=== PATIENT | female | born 1960 | race Caucasian/White ===

== ENCOUNTER 2022-02-18 12:23 | Emergency (ER) | payer MEDICARE, MEDICAID, SELFPAY ==
[2022-02-18 12:24] VITALS: BP 162/86; PULSE 55; RESP 16; TEMP 37.1; O2SAT 98; BMI 31.2
--- NOTE | 2022-02-18 12:39 | ED.VIS.LOWEX ---
HPI History of Present Illness Chief Complaint: Lower Extremity Injury Narrative Narrative: Patient presents with crush injury to her right great toe. She states that she recently moved and had a concrete slab that someone had given her to put outside propped up against the wall. She was inside her home when she turned around, and the concrete slab fell and crushed her right great toe. She was not wearing shoes or socks. She believes her tetanus immunization was up-to-date in 2019, 2 years ago. Of note, she states she is always concerned about infection because she is immunosuppressed for medication from her kidney transplant. She is on blood thinners such as Plavix and takes baby aspirin. She presents because of the injury to her right great toe. She sustained injury to the nailbed. [facility] Medical History Cancer of tonsil Carotid arterial disease COPD (chronic obstructive pulmonary disease) GERD (gastroesophageal reflux disease) High cholesterol HTN (hypertension) Hypothyroid Kidney failure Renal vein stenosis of kidney transplant Home Medications cephalexin 500 mg capsule 500 mg PO BID #14 caps 02/18/22 [Rx Last Taken Unknown] Allergy/AdvReac Type Severity Reaction Status Date / Time cyclobenzaprine Allergy Rash Verified 02/18/22 12:27 [From Flexeril] Opioids - Morphine Analogues Allergy Rash Verified 02/18/22 12:27 Surgical History Kidney transplant recipient Social History Smoking Status: Never smoker ROS ROS ED ROS Narrative Constitutional: No fever, no chills. HEENT: No sore throat. No neck pain. No loss of vision. No rhinorrhea. Cardiovascular: No chest pain. No palpitations. No pedal edema. Respiratory: No cough, no shortness of breath. Abdominal: No abdominal pain. No nausea. No vomiting. Genitourinary: No dysuria. No hematuria. Musculoskeletal: No myalgias. Crush injury to right great toe. Worse with weightbearing and walking. Neurologic: No headaches. No dizziness. No lightheadedness. Skin: No rash. No change in color. Psychiatric: No depression. No anxiety. EXAM Physical Exam Narrative Exam Narrative: Afebrile. Vital signs noted. HEENT: Normocephalic. Atraumatic. PERRL, EOMI. Neck soft and supple. No point tenderness or step off. Cardiovascular: Regular rate and rhythm. No murmurs, rubs, or gallops appreciated. Respiratory: No tachypnea. Lungs clear to auscultation bilaterally. Gastrointestinal: Abdomen soft, nontender, with normoactive bowel sounds. No rebound or guarding. Neurological: Awake. Alert. Nonfocal, nonlateralizing. Skin: No rash. Normal color. No pallor. Musculoskeletal: No pedal edema. Decreased range of motion right great toe secondary to pain. There is a proximal subungual hematoma with partial nail avulsion with minimal surrounding drops of blood. Const Vital Signs: 02/18/22 12:24 Temperature 98.7 F Temperature Source Oral Pulse Rate 55 L Respiratory Rate 16 Blood Pressure 162/86 H Blood Pressure Mean 111 Pulse Ox 98 Oxygen Delivery Method Room Air MDM MDM MDM Narrative Medical decision making narrative: X-rays were obtained of the right great toe. Patient requested 500 mg of Tylenol for analgesia. Patient stated that she wanted complete nail removal. However, she only has very partial nail avulsion approximately. I interpreted her x-ray. There is a nondisplaced fracture of the distal phalanx of the first digit. I will put her on antibiotics. I was able to discuss this with Dr. Rodriguez with podiatry who agrees that the nail should remain intact. It will be dressed and she will be given a postop shoe to be weightbearing as tolerated. She will elevate her right foot when possible and take [id number] analgesics and follow-up with podiatry. I feel she can be discharged safely home with follow-up. Return instructions were reviewed. Disposition is discharged home in stable condition. Radiography Diagnostic Testing: Clinical Impression(s) from Imaging Studies Toe X-Ray 02/18/22 12:44 IMPRESSION: Fracture of the first distal phalanx. Electronically Signed: Robel Lara MD at 13:24 EDT , Discharge Plan Triage Chief Complaint: Lower Extremity Injury ED Provider: Gibran Graff Dx/Rx/DC Orders Clinical Impression: Crush injury of toe, Subungual hematoma of foot, Nail avulsion of toe, Fracture, toe Instructions: Fx Finger Toe, ED Crush Injury, Foot/Toe, ED Detached Fingernail or Toenail, ED Subungual Hematoma Prescriptions: New cephalexin 500 mg capsule 500 mg PO BID Qty: 14 0RF Primary Care Provider: Edgar Weinstein,Out of Referrals: Sharan Rodriguez DPM [Med Staff - Active Staff] - 3-5 Days if not improving [facility] Doctor,Out of [Primary Care Provider] - Disposition Disposition: Home, Self Care Discharge Date/Time: 02/18/22 14:52
--- NOTE | 2022-02-18 12:44 | RAD_ITS ---
STUDY: X-RAY RIGHT FOOT, GREAT TOE REASON FOR EXAM: Injury of the right great toe. TECHNIQUE: 3 view(s) of the toe were obtained. COMPARISON: None. FINDINGS: Normal visualized metatarsus. Normal metatarsophalangeal (M.T.P) joint. Normal interphalangeal joint. There is a nondisplaced fracture of the distal phalanx. There is soft tissue swelling. RAD/Toe(s) Min 2 Views IMPRESSION: Fracture of the first distal phalanx. Electronically Signed: Robel Lara MD at 13:24 EDT ,
[2022-02-18] MEDS: Acetaminophen 500 MG Tablet PO (12:59)
--- NOTE | 2022-02-18 14:43 | ED.RN ---
This RN went to change pt. dressing and give her a post-op shoe.Attempted to remove soiled dressing and pt. swatted my hand away stating my toe is broken is hurts. I attempted again to remove soiled dressing and put on a clean dressing and again pt. swatted this RN's hand away and continued to tell me the best way to clean her toe. This RN informed pt. that she could change her own dressing if she would prefer. pt. stated yes i will just do it myself seeing as how this hospital is no help at all, you guys cannot even set up transport for me to get back back home. Informed pt. she could call a taxi or family and pt. states my daughters live over an hour away there is no way I am bothering them with me needing a ride. I gave pt. dressing materials, post op shoe and DC papers and pt. slammed door closed.
== END 2022-02-18 14:52 | disposition home or self-care (01) ==
PROVIDERS: Emergency Provider Emergency Medicine; Visit Provider Emergency Medicine
DX: S97.111A Crushing injury of right great toe, initial encounter (principal); D84.9 Immunodeficiency, unspecified; J44.9 Chronic obstructive pulmonary disease, unspecified; S90.111A Contusion of right great toe without damage to nail, initial encounter; Z85.818 Personal history of malignant neoplasm of other sites of lip, oral cavity, and pharynx; W23.0XXA Caught, crushed, jammed, or pinched between moving objects, initial encounter; Z94.0 Kidney transplant status; Z79.02 Long term (current) use of antithrombotics/antiplatelets; Z79.82 Long term (current) use of aspirin; S90.211A Contusion of right great toe with damage to nail, initial encounter; S92.424A Nondisplaced fracture of distal phalanx of right great toe, initial encounter for closed fracture
CPT/HCPCS: 73660; 99284

== ENCOUNTER 2022-06-27 13:32 | Observation (INO) | payer MEDICARE, MEDICAID, SELFPAY ==
[2022-06-27] VITALS (10 sets, daily range): BP systolic 151–165; BP diastolic 61–90; PULSE 58–75; RESP 12–18; TEMP 34.9–36.6; O2SAT 94–98; BMI 30.9; BMI 30.5
--- NOTE | 2022-06-27 15:42 | ED.VIS.CHEST ---
HPI History of Present Illness Chief Complaint: Nausea/Vomiting Narrative Narrative: Patient presents for an episode of dizziness, nausea, vomiting, sweating, right sided nonpleuritic chest pain, and shortness of breath that started while she was washing her dishes just prior to calling an ambulance, she states it lasted about 10 minutes with regards of the chest discomfort. She feels almost completely better now with no symptoms except for nausea. This was a difficult history to obtain because the patient talked a long time about her recent medication changes prior to understanding that she had a single episode of this just today although her new medication started 3 days ago. She states she had a prior carotid endarterectomy on the left, she needs 1 on the right and her doctor was switching blood pressure medications around because her blood pressures were uncontrolled. She was on metoprolol, she was taken it for 9 years, it was discontinued 3 days ago and she was started on Zetia. She states in 2 weeks she is supposed to start another blood pressure medication, she does not know which one it is. She then talks about the fact that sometimes when she takes her pills out of her pill counter, some of them get hung up in the areas, sometimes she throws her pills back into her mouth and then finds one in her hair and then takes it as well, so she is not on a percent confident that she has been taking her medications as prescribed, and tells me that she is giving me these disclaimers. She had no problems taking the medications over the last couple days until this episode that she had today which she attributes to possibly being due to the blood pressure medications. She denies feeling vertigo. She said that it felt like lightheadedness but she did not become to the point of syncope or near syncope. The discomfort in the right upper chest was just a pain. She cannot describe it further. She spends the rest of the encounter asking me why EMS would bring her to this hospital since she is a transplant patient and this is not a transplant hospital. I tried to answer her question professionally, but she became frustrated and wanted to end the conversation. [facility] Medical History Cancer of tonsil Carotid arterial disease COPD (chronic obstructive pulmonary disease) GERD (gastroesophageal reflux disease) High cholesterol HTN (hypertension) Hypothyroid Kidney failure Renal vein stenosis of kidney transplant Home Medications cephalexin 500 mg capsule 500 mg PO BID #14 caps 02/18/22 [Rx Last Taken Unknown] acetaminophen 650 mg tablet,extended release 1,300 mg PO Q8H 06/27/22 [History Last Taken Unknown] albuterol sulfate 90 mcg/actuation aerosol inhaler (Proventil HFA) 2 puff inhalation Q4H PRN PRN Cough 06/27/22 [History Last Taken Unknown] amlodipine 10 mg tablet 10 mg PO DAILY 06/27/22 [History Last Taken Unknown] atorvastatin 80 mg tablet (Lipitor) 80 mg PO DAILY 06/27/22 [History Last Taken Unknown] carvedilol 12.5 mg tablet 12.5 mg PO BID 06/27/22 [History Last Taken Unknown] ciclopirox 0.77 % topical gel topical 06/27/22 [History Last Taken Unknown] clopidogrel 75 mg tablet (Plavix) 75 mg PO DAILY 06/27/22 [History Last Taken Unknown] cyclosporine 25 mg capsule 75 mg PO QHS 06/27/22 [History Last Taken Unknown] estradiol 0.01% (0.1 mg/gram) vaginal cream (Estrace) 1 g vaginal QWEEK 06/27/22 [History Last Taken Unknown] ezetimibe 10 mg tablet (Zetia) 10 mg PO DAILY 06/27/22 [History Last Taken Unknown] famotidine 20 mg tablet (Pepcid) 20 mg PO DAILY 06/27/22 [History Last Taken Unknown] fenofibrate nanocrystallized 48 mg tablet (Tricor) 48 mg PO DAILY 06/27/22 [History Last Taken Unknown] fluticasone propionate 50 mcg/actuation nasal spray,suspension 2 spray intranasal DAILY 06/27/22 [History Last Taken Unknown] hydrochlorothiazide 25 mg tablet 25 mg PO BID 06/27/22 [History Last Taken Unknown] hydroxyzine pamoate 25 mg capsule (Vistaril) 25 mg PO BID PRN Anxiety 06/27/22 [History Last Taken Unknown] lamotrigine 200 mg tablet,extended release 24 hr (Lamictal XR) 200 mg PO DAILY 06/27/22 [History Last Taken Unknown] levothyroxine 88 mcg tablet 88 mcg PO DAILY 06/27/22 [History Last Taken Unknown] montelukast 10 mg tablet (Singulair) 10 mg PO QHS 06/27/22 [History Last Taken Unknown] mycophenolate mofetil 250 mg capsule (CellCept) 500 mg PO BID 06/27/22 [History Last Taken Unknown] omeprazole 40 mg capsule,delayed release 40 mg PO DAILY 06/27/22 [History Last Taken Unknown] prednisone 5 mg tablet 5 mg PO DAILY 06/27/22 [History Last Taken Unknown] tiotropium 2.5 mcg-olodaterol 2.5 mcg/actuation mist for inhalation 2 puff inhalation DAILY 06/27/22 [History Last Taken Unknown] Allergy/AdvReac Type Severity Reaction Status Date / Time cyclobenzaprine Allergy Rash Verified 02/18/22 12:27 [From Flexeril] Opioids - Morphine Analogues Allergy Rash Verified 02/18/22 12:27 Surgical History Kidney transplant recipient Social History Smoking Status: Never smoker ROS ROS ED Constitutional Constitutional ED: Reports sweats; Denies chills or fever(s) Eyes Eyes: Denies change in vision or diplopia ENT ENT ED: Denies rhinorrhea or sore throat Cardiovascular Cardiovascular: Reports chest pain and lightheadedness; Denies palpitations Respiratory/Chest Respiratory/Chest: Reports dyspnea; Denies cough Gastrointestinal Gastrointestinal: Reports nausea; Denies abdominal pain, diarrhea or vomiting Genitourinary Genitourinary ED: Denies dysuria or hematuria Musculoskeletal Musculoskeletal: Denies back pain or neck pain Integumentary Denies abscess or rash Neurologic Neurologic: Denies headache(s), paresthesias or weakness Psychiatric Psychiatric: Reports anxiety; Denies suicidal ideation or suicidal thoughts EXAM Physical Exam Const Vital Signs: 06/27/22 13:33 Temperature 94.8 F L Temperature Source Temporal Pulse Rate 58 L Respiratory Rate 16 Blood Pressure 158/62 H Blood Pressure Mean 94 Pulse Ox 98 Oxygen Delivery Method Room Air Positive well nourished and well developed General Appearance ED: well developed and NAD HEENT Reports moist mucous membranes HEENT Narrative: Patient turning her head/neck without any apparent difficulty or symptomatology. normocephalic and atraumatic Eyes PERRL and EOMs intact bilaterally Eyes Narrative: No horizontal, vertical, rotatory nystagmus or other pathologic nystagmus. Neck full ROM, no lymphadenopathy and supple Chest Wall inspection of chest normal and palpation of chest normal Resp normal respiratory effort and clear to auscultation bilaterally Cardio regular rate, regular rhythm and no murmurs GI non-tender and non-distended GI Narrative: Right lower quadrant transplanted kidney nontender Auscultation: normoactive bowel sounds Palpation: soft Back/Spine no CVA tenderness General Back: other FROM Extremity normal to inspection General Extremety ED: Negative for edema, pulses abnormal or tenderness General Extremity: Negative for edema or pulses abnormal Neuro oriented x3, CN's II-XII intact bilaterally and no sensory deficits noted Sensorium / Orientation: awake and alert Motor Exam: strength 5/5 throughout Psych Psych Narrative: Irritated, frustrated, anxious, sometimes tearful, redirectable at times. Skin no rashes or lesions noted and no wounds Heart Score History: Moderately Suspicious ECG: Significant ST-Depression Age: >45 - <65 years Risk Factors: 1 or 2 Risk Factors Troponin: </= Normal Limit Score: 5 MDM MDM MDM Narrative Medical decision making narrative: Patient did not have recurrent chest discomfort, her EKG is very concerning. I do not have an old one. The patient is a F patient I had her pull up her epic chart on her phone, I scrolled through all of her test results for several years, she has a couple of EKG rhythm strips that show sinus rhythm, some of them showed incomplete right bundle branch block, but no other abnormalities. I could find no EKGs to compare this with and we do not have any in our system here. I discussed with cardiology, Dr. Gayle. He agrees with admission and recommends a heparin drip and they will cycle enzymes, order an echocardiogram for the morning, and evaluate further. I did see that the patient had an old echocardiogram from last year at [facility] that was unremarkable showing normal systolic function. Patient states to me that she is very anxious about all of this. I advised her that we are trying to either rule in or rule out cardiac issues which is the reason for recommending admission, and that we have not done either 1 yet. She understands, and understands that there is risk here to her. I offered the option of transfer to [facility] if she desires, but at this time she is okay staying here. Lab Data Attestation: I reviewed the patient's lab results. Labs: Laboratory Results - last 24 hr 06/27/22 06/27/22 15:40 15:40 WBC 11.7 H RBC 5.19 Hgb 13.0 Hct 40.0 MCV 77.1 L MCH 25.0 L MCHC 32.5 RDW Std Deviation 47.4 H RDW Coeff of Pete 17.2 H Plt Count 328 MPV 8.7 Immature Gran % (Auto) 0.300 Neut % (Auto) 86.5 H Lymph % (Auto) 8.7 L [place] % (Auto) 3.8 Eos % (Auto) 0.3 Baso % (Auto) 0.4 Absolute Neuts (auto) 10.1 H Absolute Lymphs (auto) 1.02 Nucleated RBC % 0 Sodium 136 Potassium 3.3 L Chloride 100 Carbon Dioxide 30.0 Anion Gap 6 BUN 21 H Creatinine 1.05 H Estim Creat Clear Calc 50.63 Est GFR (MDRD) Af Amer 69 Est GFR (MDRD) Non-Af 57 L BUN/Creatinine Ratio 20.0 Glucose 117 H Calcium 10.0 Troponin I High Sens 11 Radiography Chest X-Ray - ED: 1 View, Read by ED Physician and No Acute Disease Rhythm Strip Rhythm Strip: Sinus Rhythm Rate: 65 Ectopy: None EKG Initial EKG: Attestation: I personally reviewed and interpreted this EKG as follows: Interpretation: Sinus Rhythm, S-T Depression (w/ associated biphasic T-waves V3-6) and Non-Specific ST Changes (I, aVL) Prior: No Prior Discharge Plan Triage Chief Complaint: Nausea/Vomiting ED Provider: Ant Gavin Dx/Rx/DC Orders Clinical Impression: Chest pain, Acute electrocardiogram changes, Peripheral artery disease Prescriptions: No Action cephalexin 500 mg capsule 500 mg PO BID Qty: 14 0RF carvedilol 12.5 mg Tablet 12.5 mg PO BID Rx Instructions: must administer with a meal/food prednisone 5 mg Tablet 5 mg PO DAILY clopidogrel [Plavix] 75 mg Tablet 75 mg PO DAILY acetaminophen 650 mg Tablet Extended Release 1,300 mg PO Q8H famotidine [Pepcid] 20 mg Tablet 20 mg PO DAILY amlodipine 10 mg Tablet 10 mg PO DAILY ezetimibe [Zetia] 10 mg Tablet 10 mg PO DAILY lamotrigine [Lamictal XR] 200 mg Tablet Extended Release 24hr 200 mg PO DAILY tiotropium-olodaterol 2.5-2.5 mcg/actuation Mist 2 puff INHALATION DAILY atorvastatin [Lipitor] 80 mg Tablet 80 mg PO DAILY mycophenolate mofetil [CellCept] 250 mg Capsule 500 mg PO BID omeprazole [Prilosec] 40 mg Capsule,Delayed Release(Dr/Ec) 40 mg PO DAILY cyclosporine 25 mg Capsule 75 mg PO QHS levothyroxine 88 mcg Tablet 88 mcg PO DAILY montelukast [Singulair] 10 mg Tablet 10 mg PO QHS hydrochlorothiazide 25 mg Tablet 25 mg PO BID estradiol [Estrace] 0.01 % (0.1 mg/gram) Cream 1 g VAGINAL QWEEK albuterol sulfate [Proventil HFA] 90 mcg/actuation Hfa Aerosol Inhaler 2 puff INHALATION Q4H PRN PRN (Reason: Cough) fluticasone propionate [Flonase] 50 mcg/actuation [place],Suspension 2 spray INTRANASAL DAILY Rx Instructions: administer into each nostril ciclopirox [Loprox] 0.77 % Gel TOPICAL hydroxyzine pamoate [Vistaril] 25 mg Capsule 25 mg PO BID PRN (Reason: Anxiety) fenofibrate nanocrystallized [Tricor] 48 mg Tablet 48 mg PO DAILY Primary Care Provider: Rachid Tsang Referrals: Rachid Tsang MD [Primary Care Provider] - Disposition Disposition: Acute Care [facility]
[2022-06-27 16:05] LABS: Anion Gap 6 (5-15); BUN 21 mg/dL (7-18); Chloride 100 mmol/L (98-107); Creatinine, Serum 1.05 mg/dL (0.55-1.02); EST Glomerular Filtration Rate 57 mL/min (>60); Est Glom Filt Rate - Afr Amer 69 mL/min (>60); Estimated Creatinine Clearance 50.63 ml/min; Glucose 117 mg/dL (74-106); Potassium 3.3 mmol/L (3.5-5.1); Sodium Level 136 mmol/L (136-145); Troponin-I HS (w/2H Reflex) 11 pg/mL (3.0-54.0)
--- NOTE | 2022-06-27 16:05 | RAD_ITS ---
EXAM: XR CHEST, 1 VIEW CLINICAL INDICATION: chest pain TECHNIQUE: Frontal view of the chest. This report was created using [employer] report generation technology. COMPARISON: None. FINDINGS: LUNGS AND PLEURAL SPACES: Normal. No consolidation or edema. No pneumothorax. No effusion. HEART: Normal heart size. MEDIASTINUM: No mediastinal or hilar mass. BONES/JOINTS: No acute abnormality. SOFT TISSUES: Normal. RAD/Chest 1 View (Portable) IMPRESSION: No acute cardiopulmonary disease. Electronically Signed: Shimon Houston MD at 16:22 EST ,
[2022-06-27 16:07] LABS: Absolute Lymphocyte Count 1.02 X10^3/uL (0.83-4.51); Absolute Neutrophil Count 10.1 X10^3/uL (2.0-7.7); Basophil# 0.05 X10^3/uL; Basophil% 0.4 % (0-1); Eosinophil# 0.04 X10^3/uL; Eosinophils% 0.3 % (0-5); Lymphocyte # 1.02 X10^3/ul (0.83-4.51); Lymphocyte % 8.7 % (19-41); Mean Corp Hgb Conc 32.5 g/dL (32-36); Mean Corpuscular Volume 77.1 fL (81-99); Mean Platelet Vol. 8.7 fl (6.2-12.0); Monocyte# 0.44 X10^3/uL; Monocyte% 3.8 % (0-10); NRBC Flagged by Analyzer 0 % (0-5); Neutrophil % 86.5 % (47-70); Platelet Count 328 K/mm3 (150-450); RBC Distribution Width CV 17.2 % (11.6-14.6); RBC Distribution Width SD 47.4 fl (35.1-43.9); Red Blood Count 5.19 M/mm3 (4.2-5.4); White Blood Count 11.7 K/mm3 (4.4-11.0)
[2022-06-27] MEDS: Ondansetron 4 MG/2 ML Vial IV (16:19)
--- NOTE | 2022-06-27 17:18 | PCM.HP.STD ---
[facility] - General General Date of Service: 06/27/22 Chief Complaint: N/V HPI Narrative VINAYAK SPEARS, is a 62 F who presents and vomiting today. Patient normally takes large bolus of medications around 9 AM. Usually when she takes medications it does not matter if she eats or not. Patient started on Zetia over the past few days. The prior few days, she was actually eating when she was taking her medications but today she did not. Afterwards she had diaphoresis, nausea and vomiting. She presented to the emergency room where her lab work was fairly unremarkable but her EKG showed ST depressions in the anterior lateral leads. Concerning they acted cardiology from the ER and recommended a heparin drip. Patient currently right now is no longer having any nausea or vomiting. She has never had any prior history of heart disease though she does have a history of peripheral arterial disease and has had a left carotid endarterectomy in the past and plans for a right carotid endarterectomy in the future. She does see a service station equipment mechanic but has no known cardiac condition. [facility] Medical History Cancer of tonsil Carotid arterial disease COPD (chronic obstructive pulmonary disease) GERD (gastroesophageal reflux disease) High cholesterol HTN (hypertension) Hypothyroid Kidney failure Renal vein stenosis of kidney transplant Home Medications cephalexin 500 mg capsule 500 mg PO BID #14 caps 02/18/22 [Rx Last Taken Unknown] acetaminophen 650 mg tablet,extended release 1,300 mg PO Q8H 06/27/22 [History Last Taken Unknown] albuterol sulfate 90 mcg/actuation aerosol inhaler (Proventil HFA) 2 puff inhalation Q4H PRN PRN Cough 06/27/22 [History Last Taken Unknown] amlodipine 10 mg tablet 10 mg PO DAILY 06/27/22 [History Last Taken Unknown] atorvastatin 80 mg tablet (Lipitor) 80 mg PO DAILY 06/27/22 [History Last Taken Unknown] carvedilol 12.5 mg tablet 12.5 mg PO BID 06/27/22 [History Last Taken Unknown] ciclopirox 0.77 % topical gel topical 06/27/22 [History Last Taken Unknown] clopidogrel 75 mg tablet (Plavix) 75 mg PO DAILY 06/27/22 [History Last Taken Unknown] cyclosporine 25 mg capsule 75 mg PO QHS 06/27/22 [History Last Taken Unknown] estradiol 0.01% (0.1 mg/gram) vaginal cream (Estrace) 1 g vaginal QWEEK 06/27/22 [History Last Taken Unknown] ezetimibe 10 mg tablet (Zetia) 10 mg PO DAILY 06/27/22 [History Last Taken Unknown] famotidine 20 mg tablet (Pepcid) 20 mg PO DAILY 06/27/22 [History Last Taken Unknown] fenofibrate nanocrystallized 48 mg tablet (Tricor) 48 mg PO DAILY 06/27/22 [History Last Taken Unknown] fluticasone propionate 50 mcg/actuation nasal spray,suspension 2 spray intranasal DAILY 06/27/22 [History Last Taken Unknown] hydrochlorothiazide 25 mg tablet 25 mg PO BID 06/27/22 [History Last Taken Unknown] hydroxyzine pamoate 25 mg capsule (Vistaril) 25 mg PO BID PRN Anxiety 06/27/22 [History Last Taken Unknown] lamotrigine 200 mg tablet,extended release 24 hr (Lamictal XR) 200 mg PO DAILY 06/27/22 [History Last Taken Unknown] levothyroxine 88 mcg tablet 88 mcg PO DAILY 06/27/22 [History Last Taken Unknown] montelukast 10 mg tablet (Singulair) 10 mg PO QHS 06/27/22 [History Last Taken Unknown] mycophenolate mofetil 250 mg capsule (CellCept) 500 mg PO BID 06/27/22 [History Last Taken Unknown] omeprazole 40 mg capsule,delayed release 40 mg PO DAILY 06/27/22 [History Last Taken Unknown] prednisone 5 mg tablet 5 mg PO DAILY 06/27/22 [History Last Taken Unknown] tiotropium 2.5 mcg-olodaterol 2.5 mcg/actuation mist for inhalation 2 puff inhalation DAILY 06/27/22 [History Last Taken Unknown] Allergy/AdvReac Type Severity Reaction Status Date / Time cyclobenzaprine Allergy Rash Verified 02/18/22 12:27 [From Flexeril] Opioids - Morphine Analogues Allergy Rash Verified 02/18/22 12:27 Family History (Updated 06/27/22 @ 17:[address] Bryant Esqueda DO) Other Heart disease Surgical History Kidney transplant recipient Social History (Updated 06/27/22 @ 17:[address] Bryant Esqueda, DO) Smoking Status: Never smoker substance use type: marijuana ROS ROS Narrative All review of systems were negative except as mentioned above in the history of present illness and the other review of systems. Vital Signs Vital Signs Vital Signs: 06/27/22 13:33 06/27/22 16:30 06/27/22 16:32 Temperature 34.9 C L Temperature Source Temporal Pulse Rate 58 L 65 Respiratory Rate 16 18 Blood Pressure 158/62 H 160/73 H Blood Pressure Mean 94 102 Pulse Ox 98 97 97 Oxygen Delivery Method Room Air Room Air Room Air 06/27/22 17:07 Temperature 36.1 C L Temperature Source Temporal Pulse Rate 64 Respiratory Rate 16 Blood Pressure 157/64 H Blood Pressure Mean 95 Pulse Ox 97 Oxygen Delivery Method Room Air Weight Weight: 84.2 kg Body Mass Index (BMI) 30.9 Physical Exam Const alert and no apparent distress HEENT normocephalic, head/scalp atraumatic, hearing grossly normal bilaterally and moist oral mucous membranes Neck no lymphadenopathy Resp normal respiratory effort, no retractions, no use of accessory muscles and clear to auscultation bilaterally Cardio regular rate, regular rhythm, S1 normal heart sound and S2 normal heart sound GI normal to inspection, nondistended, normoactive bowel sounds, soft to palpation, non-tender and non-distended Extremity normal to inspection and full ROM Results Lab / Micro Data Result Diagrams: 06/27/22 15:40 06/27/22 15:40 Labs: Laboratory Results - last 24 hr 06/27/22 15:40: WBC 11.7 H, RBC 5.19, Hgb 13.0, Hct 40.0, MCV 77.1 L, MCH 25.0 L, MCHC 32.5, RDW Std Deviation 47.4 H, RDW Coeff of Pete 17.2 H, Plt Count 328, MPV 8.7, Immature Gran % (Auto) 0.300, Neut % (Auto) 86.5 H, Lymph % (Auto) 8.7 L, Ogle % (Auto) 3.8, Eos % (Auto) 0.3, Baso % (Auto) 0.4, Absolute Neuts (auto) 10.1 H, Absolute Lymphs (auto) 1.02, Nucleated RBC % 0 06/27/22 15:40: Sodium 136, Potassium 3.3 L, Chloride 100, Carbon Dioxide 30.0, Anion Gap 6, BUN 21 H, Creatinine 1.05 H, Estim Creat Clear Calc 50.63, Est GFR (MDRD) Af Amer 69, Est GFR (MDRD) Non-Af 57 L, BUN/Creatinine Ratio 20.0, Glucose 117 H, Calcium 10.0, Troponin I High Sens 11 Rhythm Strip Rhythm Strip: Sinus Rhythm Rate: 65 Ectopy: None EKG Initial EKG: Attestation: I personally reviewed and interpreted this EKG as follows: Prior EKG tracings: available for review EKG Rhythm Intrepretation: Sinus Rhythm (T depressions noted in the anterior and lateral leads greater than 1 mm.) Radiology Impression Chest X-Ray 06/27/22 16:05 IMPRESSION: No acute cardiopulmonary disease. Electronically Signed: Shimon Houston MD at 16:22 EST , Assessment & Plan Assessment/Plan (1) Unstable angina: PLAN: With anterior lateral EKG changes with ST depressions. Patient was able to pull up her MyChart or phone and I was able to look at an EKG that she had performed in February of this year. She did have some subtle ST depressions in anterior lateral leads but not as prominent as they are today. Opponent is thus far negative. We will continue to cycle the troponins Plan would be to get an echo and nuclear stress test if the troponins continue to be negative. If troponins trend upwards or if he does have an abnormal stress test then would consult cardiology. Patient was given the option to be transferred to [facility] but patient was informed that it may be several days out before she can get up there. Patient is agreeable to staying here to have a cardiac work-up performed. (2) Hypokalemia: PLAN: Replace May be due to the HCTZ Check magnesium (3) Nausea and vomiting: PLAN: She is unclear. This could have been related with his Zetia on and onto a stomach and therefore hold the Zetia, however, cannot rule out this being cardiac in nature though atypical presentation. As needed Zofran and Compazine PLAN: Plan Chronic conditions Peripheral arterial disease: Patient has had carotid stenosis bilaterally. Left carotid endarterectomy has been performed right is to be performed in the future. Continue with aspirin, clopidogrel and statin Hypertension: Continue with carvedilol and HCTZ History of throat cancer: Has completed chemo and radiation. In remission for the past several years. History of kidney transplant: Patient had a renal failure due to the chemotherapy. Continue with mycophenolate, prednisone VTE prophylaxis: Not indicated given observation status Disposition: To be determined. Patient being brought under observation status at this point time.. The patient does have evidence of a non-STEMI, then likely she will be changed to admission and started on anticoagulation and cardiology consultation. Charges/Coding Visit Charges OBSV E&M: 34899 Initial observation care L3
[2022-06-27 17:28] LABS: Prothrombin Time (Protime)PT. 13.1 SECONDS (11.7-14.9)
[2022-06-27 17:29] LABS: Partial Thromboplast Time 27.1 Seconds (24.1-36.2)
[2022-06-27 17:45] LABS: Reflex Troponin-HS? (from REC) Y
[2022-06-27 18:21] LABS: Troponin-I HS 14 pg/mL (3.0-54.0)
--- NOTE | 2022-06-27 19:51 | ECHOD_ITS ---
Reason For Study: Chest Pain Procedure This was a 2D Doppler, Color Flow transthoracic echocardiogram. Exam performed in department. Left Ventricle Normal left ventricle. The estimated ejection fraction is 55-60 %. Right Ventricle Normal right ventricle. Normal systolic function. Atria The left atrium is mildly enlarged. Normal right atrium. Mitral Valve The mitral valve is structurally normal. No prolapse or stenosis seen. Tricuspid Valve Normal tricuspid valve. Aortic Valve Normal aortic valve. Pulmonic Valve The pulmonic valve is not well visualized. Great Vessels Normal aortic root. Pericardium/Pleural No pericardial effusion. Medication NO DEFINITY* Kidney Transplant. MMode/2D Measurements & Calculations LVIDd: 4.7 cm IVSd: 1.0 cm Ao root diam: 3.3 cm LVIDs: 3.0 cm LVPWd: 1.2 cm LA dimension: 4.0 cm RVDd: 3.1 cm FS: 36.4 % LAV(MOD-bp): 55.9 ml LA A4 area: 19.5 cm2 RA A4 area: 15.0 cm2 LAV(MOD-bp) Indexed: 29.7 ml/m2 LAV(MOD-sp2): 57.3 ml LAV(MOD-sp4): 52.7 ml Time Measurements MV dec time: 0.37 sec Doppler Measurements & Calculations MV E max harshal: 50.4 cm/sec Lat Peak E' Harshal: 7.3 cm/sec Med Peak E' Harshal: 4.2 cm/sec MV A max harshal: 88.0 cm/sec E/E' lat: 6.9 E/E' med: 12.0 MV E/A: 0.57 MV V2 max: 106.1 cm/sec MV P1/2t max harshal: 78.6 cm/sec Ao V2 max: 158.1 cm/sec MV max P.5 mmHg MV P1/2t: 74.6 msec Ao max P.0 mmHg MV V2 mean: 49.4 cm/sec MV dec slope: 308.5 cm/sec2 MV mean P.2 mmHg MV V2 VTI: 24.5 cm MVA(P1/2t): 2.9 cm2 LV V1 max: 111.6 cm/sec PA V2 max: 107.1 cm/sec TR max harshal: 237.7 cm/sec LV V1 max P.0 mmHg TR max P.6 mmHg ECHO/Echo Complete Interpretation Summary The estimated ejection fraction is 55-60 %. Normal LV systolic function Ordering Physician: Bryant Esqueda Referring Physician: Ashok Tsang Performed By: Vijay Monroe RCS
[2022-06-27] MEDS: Potassium Chloride Oral Tablet 20 MEQ 40 MEQ PO (21:21)
[2022-06-27] MEDS: Atorvastatin Calcium 80 MG Tablet PO (21:22)
[2022-06-27] MEDS: Mycophenolate Mofetil 250 MG Capsule 500 MG PO (21:22)
[2022-06-27] MEDS: Montelukast 10 MG Tablet PO (21:22)
[2022-06-27] MEDS: Acetaminophen 500 MG Tablet 1000 MG PO (21:23)
[2022-06-27 22:08] LABS: Troponin-I HS 20 pg/mL (3.0-54.0)
[2022-06-27] MEDS: Albuterol 2.5 MG/3 ML VIAL.NEB. INHALATION (22:40)
[2022-06-28] VITALS (12 sets, daily range): BP systolic 130–154; BP diastolic 60–84; PULSE 58–102; RESP 16–20; TEMP 36.2–37.1; O2SAT 96–99
[2022-06-28 06:35] LABS: Anion Gap 10 (5-15); BUN 21 mg/dL (7-18); BUN/Creat Ratio 17.8 RATIO (10-20); Calcium,Total 9.7 mg/dL (8.5-10.1); Chloride 102 mmol/L (98-107); Cholesterol 168 mg/dL (200); Creatinine, Serum 1.18 mg/dL (0.55-1.02); EST Glomerular Filtration Rate 50 mL/min (>60); Est Glom Filt Rate - Afr Amer 60 mL/min (>60); Estimated Creatinine Clearance 43.23 ml/min; Glucose 84 mg/dL (74-106); High Density Lipoprotein 64 mg/dL; Magnesium 2.2 mg/dL (1.6-2.6); Potassium 3.4 mmol/L (3.5-5.1); Sodium Level 137 mmol/L (136-145); Triglycerides 160 mg/dL; Very Low Density Lipoprotein 32 mg/dL (5-40)
[2022-06-28] MEDS: Clopidogrel Bisulfate 75 MG Tablet PO (06:45)
[2022-06-28] MEDS: Levothyroxine 88 MCG Tablet PO (06:45)
--- NOTE | 2022-06-28 06:50 | NURSING ---
CV nurse stated it was ok to give patient the HCTZ and amlodipine before her nuclear stress test this am. Patient was requesting medications.
[2022-06-28] MEDS: amLODIPine 10 MG Tablet PO (07:24)
[2022-06-28] MEDS: hydroCHLOROthiazide 25 MG Tablet PO (07:25)
[2022-06-28] MEDS: Pantoprazole Sodium 40 MG Tablet PO (09:38)
[2022-06-28] MEDS: Mycophenolate Mofetil 250 MG Capsule 500 MG PO ×2 (09:38→21:58)
[2022-06-28] MEDS: Fenofibrate 48 MG Tablet PO (09:38)
[2022-06-28] MEDS: predniSONE 5 MG Tablet PO (09:39)
[2022-06-28] MEDS: Potassium Chloride Oral Tablet 20 MEQ 40 MEQ PO (12:14)
[2022-06-28] MEDS: Ipratropium/Albuterol Sulfate 3 ML AMPUL.NEB INHALATION ×2 (13:05→19:11)
--- NOTE | 2022-06-28 14:02 | STRESSREP_ITS ---
Stress Test Report Pharmacologic/Lexiscan/myocardial perfusion stress test. Indication; 62-year-old female who presented to the ER having symptoms of nausea and vomiting Has a multiple risk factor for CAD with carotid artery disease and a prior left carotid endarterectomy Hypertension and she had change in the EKG noted to the ST depression in the anterior and inferolateral leads. Her cardiac markers has been negative Based on her clinical presentation she underwent Lexiscan sestamibi marker perfusion study. Stress protocol: Resting EKG demonstrates. Normal sinus rhythm. 0.4 mg of regadenoson was infused per usual protocol followed by rapid intravenous saline flush injection continuous EKG monitoring was performed. The maximum heart rate attained was 86 bpm which was 54% of maximum predicted heart . Resting EKG and with infusion of Lexiscan significant ST depression noted downsloping in the inferior and lateral leads. Arrhythmia: No arrhythmia demonstrated Symptoms: Patient had no symptoms of chest pain Blood pressure at rest: 164/72 mmHg blood pressure at the end of stress: 164/72 mmHg Myocardial perfusion protocol. 10.8 mCi ]of Technetium 99m Sestamibi was injected at rest. [ 0.4 mg ]of Regadenoson was infused per usual protocol peak infusion 33.4 mCi ]of Technetium 99m sestamibi was injected. Stress images were obtained stress and rest images were reconstructed and compared in the short axis vertical and horizontal long axis. Gated images were also obtained Perfusion SPECT analysis: Review of the images demonstrate normal uptake of sestamibi at rest, post stress images demonstrate a small to moderate sized lateral myocardial revers ible ischemia No evidence of prior myocardial infarction Gated SPECT analysis: The gated ejection fraction is 70% Normal LV wall motion Conclusion: Abnormal Lexiscan sestamibi study, with significant ST depression noted in the inferolateral leads And evidence of a small to moderate lateral myocardial ischemia Recommendations; Consider further evaluation with cardiac catheterization if clinically warranted. Dallas Gayle MD,FACC,[facility]
--- NOTE | 2022-06-28 15:59 | CON.PCM.CA_ITS ---
Assessment & Plan Assessment/Plan (1) Peripheral artery disease: (2) Hypokalemia: (3) Unstable angina: (4) Nausea and vomiting: PLAN: 62-year-old female With history of nausea vomiting on admission and hypokalemia Patient has significant history of peripheral vascular disease with left carotid endarterectomy, hyperlipidemia GERD She had symptoms of pressure and heaviness in the chest mainly on exertion also had a history of anxiety disorders Based on her clinical presentation she was evaluated by Lexiscan sestamibi myocardial study which is abnormal With ST depression noted in the inferior and anterior leads as well she has a small to moderate area of lateral myocardial ischemia on the nuclear images LV function is preserved And echocardiographic evaluation showed LV function is normal with no significant valve abnormality Cardiac care plan recommendations; 1. I discussed in detail the finding of the nuclear stress test And patient to schedule an appointment with her primary granular operator at [facility] to discuss the need for further evaluation With possible cardiac catheterization She has renal transplant 67 years ago From cardiac standpoint would recommend to continue the dual antiplatelet therapy. Patient has been already on Plavix will add aspirin, recently she was started on Zetia. 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 HPI Narrative HPI Narrative: VINAYAK SPEARS, is a 62 F who presents [facility] Medical History (Updated 06/27/22 @ 20:40 by Za Marin) Cancer of tonsil Carotid arterial disease COPD (chronic obstructive pulmonary disease) GERD (gastroesophageal reflux disease) Hepatitis High cholesterol HTN (hypertension) Hypothyroid Irregular heart beat Kidney disease Kidney failure Renal vein stenosis of kidney transplant Home Medications acetaminophen 650 mg tablet,extended release (Arthritis Pain Reliever) 1,300 mg PO Q8H PAAIN 06/27/22 [History Last Taken Unknown] albuterol sulfate 90 mcg/actuation aerosol inhaler (Proventil HFA) 2 puff inhalation Q4H PRN Shortness Of Breath 06/27/22 [History Last Taken 06/26/22] amlodipine 10 mg tablet 10 mg PO 0900 BLOOD PRESSURE 06/27/22 [History Last Taken 06/27/22 09:00] atorvastatin 80 mg tablet (Lipitor) 80 mg PO 2100 CHOLESTEROL 06/27/22 [History Last Taken 06/26/22 21:00] calcium carbonate 600 mg calcium (1,500 mg) tablet 600 mg PO 2100 SUPPLEMENT 06/27/22 [History Last Taken 06/26/22 21:00] clopidogrel 75 mg tablet (Plavix) 75 mg PO 0900 BLOOD THINNER 06/27/22 [History Last Taken 06/27/22 09:00] cyclosporine 25 mg capsule 75 mg PO 0900,2100 06/27/22 [History Last Taken 06/27/22 09:00] estradiol 0.01% (0.1 mg/gram) vaginal cream (Estrace) 1 g vaginal MOFR 06/27/22 [History Last Taken 06/24/22] ezetimibe 10 mg tablet (Zetia) 10 mg PO 0900 CHOLESTEROL 06/27/22 [History Last Taken 06/27/22 09:00] famotidine 20 mg tablet (Pepcid) 20 mg PO 0900 GERD 06/27/22 [History Last Taken 06/27/22 09:00] fenofibrate nanocrystallized 48 mg tablet (Tricor) 48 mg PO 0900 CHOLESTEROL 06/27/22 [History Last Taken 06/27/22 09:00] hydrochlorothiazide 25 mg tablet 25 mg PO 0900 06/27/22 [History Last Taken 06/27/22 09:00] hydroxyzine pamoate 25 mg capsule (Vistaril) 25 - 50 mg PO TID PRN Anxiety 06/27/22 [History Last Taken 06/26/22 21:00] lamotrigine 200 mg tablet,extended release 24 hr (Lamictal XR) 200 mg PO 2100 06/27/22 [History Last Taken 06/26/22 21:00] levothyroxine 88 mcg tablet 88 mcg PO 0700 THYROID 06/27/22 [History Last Taken 06/27/22 07:00] montelukast 10 mg tablet (Singulair) 10 mg PO 2100 ALLERGIES 06/27/22 [History Last Taken 06/26/22 21:00] mycophenolate mofetil 250 mg capsule (CellCept) 500 mg PO 0900,2100 06/27/22 [History Last Taken 06/27/22 09:00] omeprazole 40 mg capsule,delayed release 80 mg PO 0900 GERD 06/27/22 [History Last Taken 06/27/22 09:00] prednisone 5 mg tablet 5 mg PO 0900 06/27/22 [History Last Taken 06/27/22 09:00] tiotropium 2.5 mcg-olodaterol 2.5 mcg/actuation mist for inhalation (Stiolto Respimat) 2 puff inhalation DAILY COPD 06/27/22 [History Last Taken Unknown] Allergy/AdvReac Type Severity Reaction Status Date / Time cyclobenzaprine Allergy Rash Verified 02/18/22 12:27 [From Flexeril] Opioids - Morphine Analogues Allergy Rash Verified 02/18/22 12:27 grapefruit AdvReac Other Verified 06/27/22 18:34 passion fruit AdvReac Other Verified 06/27/22 18:34 Family History (Updated 06/27/22 @ 17:[address] Bryant Esqueda DO) Other Heart disease Surgical History Kidney transplant recipient Social History (Updated 06/27/22 @ 17:[address] Bryant Esqueda DO) Smoking Status: Never smoker substance use type: marijuana ROS ROS Narrative 14 point of review of systems is unremarkable apart from current presentation With symptoms of nausea vomiting she does not have chest pain at time of evaluation. F Physical Exam Cardio Cardio Narrative: Seen and examined and evaluated at bedside today She was alert orientated And in acute distress Does not have any active chest pain at time of evaluation Cardiac exam S1-S2 is regular Chest exam is clear to auscultation bilateral. Risk Stratification Risk Stratification Applicable: Yes Age >/= 65: No >/= 3 CAD Risk Factors (HTN, HLD, DM, family hx of CAD, or current smoker): Yes Aspirin Use in the Past 7 Days: No Severe Angina (>/= episodes in 24 hours): No EKG ST Changes >/= 0.5mm: Yes Positive Cardiac Marker: No BURAK Risk Stratification Score: 2 BURAK % Risk: 8% Risk Objective Data Vital Signs: Vital Signs Temp Pulse Resp BP Pulse Ox O2 Del Method 97.1 F L 102 H 20 H 143/70 H 99 Room Air 06/28/22 14:49 06/28/22 15:06 06/28/22 14:49 06/28/22 14:49 06/28/22 14:49 06/28/22 14:49 Oxygen Delivery Method Room Air Weight: 178 lb 2.136 oz Body Mass Index (BMI) 30.5 Intake & Output: Intake and Output for Last 24 Hours 06/26/22 06/27/22 06/28/22 23:59 23:59 23:59 Intake Total 350 / 350 Balance 350 / 350 Lab / Micro Data Result Diagrams: 06/27/22 15:40 06/28/22 05:48 Labs: Laboratory Results - last 24 hr 06/27/22 15:40: WBC 11.7 H, RBC 5.19, Hgb 13.0, Hct 40.0, MCV 77.1 L, MCH 25.0 L , MCHC 32.5, RDW Std Deviation 47.4 H, RDW Coeff of Pete 17.2 H, Plt Count 328, MPV 8.7, Immature Gran % (Auto) 0.300, Neut % (Auto) 86.5 H, Lymph % (Auto) 8.7 L, [place] % (Auto) 3.8, Eos % (Auto) 0.3, Baso % (Auto) 0.4, Absolute Neuts (auto) 10.1 H, Absolute Lymphs (auto) 1.02, Nucleated RBC % 0 06/27/22 15:40: Sodium 136, Potassium 3.3 L, Chloride 100, Carbon Dioxide 30.0, Anion Gap 6, BUN 21 H, Creatinine 1.05 H, Estim Creat Clear Calc 50.63, Est GFR (MDRD) Af Amer 69, Est GFR (MDRD) Non-Af 57 L, BUN/Creatinine Ratio 20.0, Glucose 117 H, Calcium 10.0, Troponin I High Sens 11 06/27/22 17:10: PT 13.1, INR 1.0, APTT 27.1 06/27/22 17:50: Troponin I High Sens 14 06/27/22 21:32: Troponin I High Sens 20 06/28/22 05:48: Sodium 137, Potassium 3.4 L, Chloride 102, Carbon Dioxide 25.0, Anion Gap 10, BUN 21 H, Creatinine 1.18 H, Estim Creat Clear Calc 43.23, Est GFR (MDRD) Af Amer 60, Est GFR (MDRD) Non-Af 50 L, BUN/Creatinine Ratio 17.8, Glucose 84, Calcium 9.7, Magnesium 2.2, Triglycerides 160, Cholesterol 168, LDL Cholesterol 72, VLDL Cholesterol 32, HDL Cholesterol 64 Rhythm Strip Rhythm Strip: Sinus Rhythm Rate: 65 Ectopy: None Cardiology Labs/Tests 06/27/22 15:40: WBC 11.7 H, RBC 5.19, Hgb 13.0, Hct 40.0, MCV 77.1 L, MCH 25.0 L , MCHC 32.5, Plt Count 328, MPV 8.7, Immature Gran % (Auto) 0.300, Neut % (Auto) 86.5 H, Lymph % (Auto) 8.7 L, [place] % (Auto) 3.8, Eos % (Auto) 0.3, Baso % (Auto) 0.4, Absolute Neuts (auto) 10.1 H, Nucleated RBC % 0 06/27/22 15:40: Sodium 136, Potassium 3.3 L, Chloride 100, Carbon Dioxide 30.0, Anion Gap 6, BUN 21 H, Creatinine 1.05 H, Est GFR (MDRD) Af Amer 69, Est GFR (MDRD) Non-Af 57 L, BUN/Creatinine Ratio 20.0, Glucose 117 H, Calcium 10.0 06/27/22 17:10: PT 13.1, INR 1.0, APTT 27.1 06/28/22 05:48: Sodium 137, Potassium 3.4 L, Chloride 102, Carbon Dioxide 25.0, Anion Gap 10, BUN 21 H, Creatinine 1.18 H, Est GFR (MDRD) Af Amer 60, Est GFR (MDRD) Non-Af 50 L, BUN/Creatinine Ratio 17.8, Glucose 84, Calcium 9.7, Magnesium 2.2, Triglycerides 160, Cholesterol 168, LDL Cholesterol 72, VLDL Cholesterol 32, HDL Cholesterol 64 Rhythm: EKG: ECHO: Stress Test: Cardiac Cath: PCI: CT Surgery: Holter monitor: EPS: PPM: CXR: Chest CT Scan: Radiography Diagnostic Testing: Radiology Impression Chest X-Ray 06/27/22 16:05 IMPRESSION: No acute cardiopulmonary disease. Electronically Signed: Shimon Houston MD at 16:22 [facility] , Echocardiogram 06/27/22 19:51 Interpretation Summary The estimated ejection fraction is 55-60 %. Normal LV systolic function Ordering Physician: Bryant Esqueda Referring Physician: Ashok Tsang Performed By: Vijay Monroe RCS
--- NOTE | 2022-06-28 17:25 | CASEMGMT ---
SELINA CLARK NOTE: Intro role of CM to patient and CASEY form explained re: Observation status for treatment of N/V and EKG changes. Explained hospitalization will be paid per her insurance policy for Outpatient billing and condition will continue to be evaluated for Inpt necessity. Also let pt know that [facility] sends paper in the billing packet with their phone number if questions arise. Pt verbalizes understanding and does not have further questions. Form signed, copy made and placed in chart, and original given to pt. Pt stated she just moved to the area and is interested in getting information on counseling services, specifically one who works w/trauma patients. She also states has limited resources and limited support. She states does not have any way of getting home tomorrow and is worried about it. SELINA CLARK informed her that a taxi voucher can be provided. She voices appreciation and relief. wool washing machine operatorLucy, and RNBrian, made aware and will pass along for staff tomorrow to provide. Order placed for BRIAN referral for resources and e-mail sent to BRIAN Gutiérrez, re: same. Angella CARIAS RN, CM
--- NOTE | 2022-06-28 20:04 | PCM.PN.HOSP ---
Subjective Subjective Follow-up on abnormal EKG/unstable angina/nausea and vomiting: Patient was seen and examined. She underwent stress test which was read as slightly abnormal with small to moderate lateral myocardial ischemia. Cardiac cath is recommended. Echo shows EF of 55 to 60%, normal LV systolic function. Objective Data Objective Data Vital Signs: Vital Signs Temp Pulse Resp BP Pulse Ox O2 Del Method 97.1 F L 75 20 H 143/70 H 99 Room Air 06/28/22 14:49 06/28/22 19:13 06/28/22 19:13 06/28/22 14:49 06/28/22 14:49 06/28/22 14:49 Oxygen Delivery Method Room Air Weight: 80.8 kg Body Mass Index (BMI) 30.5 Intake & Output: Intake and Output for Last 24 Hours 06/26/22 06/27/22 06/28/22 23:59 23:59 23:59 Intake Total 650 / 650 Balance 650 / 650 Lab / Micro Data Result Diagrams: 06/27/22 15:40 06/28/22 05:48 Labs: Laboratory Results - last 24 hr 06/27/22 21:32: Troponin I High Sens 20 06/28/22 05:48: Sodium 137, Potassium 3.4 L, Chloride 102, Carbon Dioxide 25.0, Anion Gap 10, BUN 21 H, Creatinine 1.18 H, Estim Creat Clear Calc 43.23, Est GFR (MDRD) Af Amer 60, Est GFR (MDRD) Non-Af 50 L, BUN/Creatinine Ratio 17.8, Glucose 84, Calcium 9.7, Magnesium 2.2, Triglycerides 160, Cholesterol 168, LDL Cholesterol 72, VLDL Cholesterol 32, HDL Cholesterol 64 Radiography Diagnostic Testing: Radiology Impression Echocardiogram 06/27/22 19:51 Interpretation Summary The estimated ejection fraction is 55-60 %. Normal LV systolic function Ordering Physician: Bryatn Esqueda Referring Physician: Ashok Tsang Performed By: Vijay Monroe RCS Rhythm Strip Rhythm Strip: Sinus Rhythm Rate: 65 Ectopy: None Physical Exam Narrative Physical exam: General: Alert, Oriented x3, Cooperative, appears unwell HEENT: Atraumatic Oral: Moist Mucosa Neck: Supple Lungs: Diminished to auscultation Cardiovascular: HS I+II, regular, no murmurs Abdomen: Bowel Sounds Present, Soft, Non Tender Extremities: No edema Skin: No rashes, No breakdown Neurological: Grossly intact Psych/Mental Status: Appropriate Assessment & Plan Assessment/Plan (1) Chest pain: PLAN: Plan 1. Abdominal stress test/unstable angina in a patient with history of CAD Cardiology consulted; further work-up including cardiac catheterization recommended Patient plans on following up with her primary cardiology in [facility] Continue with aspirin, Plavix, statin 2. Hypokalemia, replaced, recheck in a.m., 3. Intractable nausea and vomiting, unclear etiology for now Will manage with prn zofran, IV PPI 4. Peripheral artery disease s/p left carotid endarterectomy/hypertension, continue on aspirin, Plavix,statin,hydrochlorothiazide, amlodipine 5. CKD stage III, history of kidney transplant, continue cyclosporine, mycophenolate, prednisone 6. DVT PPx- early ambulation recommended Charges/Coding Visit Charges OBSV E&M: 03658 Subsequent observation care L3
[2022-06-28] MEDS: hydrOXYzine PAM 25 MG Capsule PO (21:58)
[2022-06-28] MEDS: Montelukast 10 MG Tablet PO (21:58)
[2022-06-28] MEDS: Atorvastatin Calcium 80 MG Tablet PO (21:58)
[2022-06-29] VITALS (8 sets, daily range): BP systolic 124–153; BP diastolic 73–98; PULSE 65–102; RESP 16; TEMP 36.6–36.9; O2SAT 97–98
[2022-06-29] MEDS: Acetaminophen 500 MG Tablet 1000 MG PO (06:03)
[2022-06-29] MEDS: Levothyroxine 88 MCG Tablet PO (06:03)
[2022-06-29 07:07] LABS: Absolute Lymphocyte Count 1.34 X10^3/uL (0.83-4.51); Absolute Neutrophil Count 2.9 X10^3/uL (2.0-7.7); Basophil# 0.04 X10^3/uL; Basophil% 0.8 % (0-1); Eosinophil# 0.06 X10^3/uL; Eosinophils% 1.2 % (0-5); Hematocrit 39.2 % (37-47); Hemoglobin 12.6 g/dL (12.0-15.0); Lymphocyte # 1.34 X10^3/ul (0.83-4.51); Lymphocyte % 26.3 % (19-41); Mean Corp Hgb Conc 32.1 g/dL (32-36); Mean Corpuscular Hgb 24.9 pg (27.0-32.0); Mean Corpuscular Volume 77.3 fL (81-99); Mean Platelet Vol. 8.4 fl (6.2-12.0); Monocyte# 0.77 X10^3/uL; Monocyte% 15.1 % (0-10); NRBC Flagged by Analyzer 0 % (0-5); Neutrophil # 2.87 X10^3/uL (2.7-7.7); Neutrophil % 56.4 % (47-70); Platelet Count 314 K/mm3 (150-450); RBC Distribution Width CV 17.2 % (11.6-14.6); RBC Distribution Width SD 47.9 fl (35.1-43.9); Red Blood Count 5.07 M/mm3 (4.2-5.4); White Blood Count 5.1 K/mm3 (4.4-11.0)
[2022-06-29 07:30] LABS: AST(SGOT) 25 U/L (15-37); Alanine Aminotransfer ALT/SGPT 17 U/L (13-56); Alkaline Phosphatase 42 U/L (45-117); Anion Gap 9 (5-15); BUN 24 mg/dL (7-18); BUN/Creat Ratio 21.6 RATIO (10-20); Chloride 99 mmol/L (98-107); Creatinine, Serum 1.11 mg/dL (0.55-1.02); EST Glomerular Filtration Rate 53 mL/min (>60); Est Glom Filt Rate - Afr Amer 64 mL/min (>60); Estimated Creatinine Clearance 45.96 ml/min; Globulin 4.1 g/dL (2.2-4.2); Glucose 104 mg/dL (74-106); Potassium 3.4 mmol/L (3.5-5.1); Protein, Total 8.1 g/dL (6.4-8.2); Sodium Level 135 mmol/L (136-145)
[2022-06-29] MEDS: Ipratropium/Albuterol Sulfate 3 ML AMPUL.NEB INHALATION (07:40)
[2022-06-29] MEDS: 0.9% Saline Lock 10 ML Syringe IV (08:03)
[2022-06-29] MEDS: predniSONE 5 MG Tablet PO (08:04)
[2022-06-29] MEDS: Mycophenolate Mofetil 250 MG Capsule 500 MG PO (08:05)
[2022-06-29] MEDS: hydroCHLOROthiazide 25 MG Tablet PO (08:06)
[2022-06-29] MEDS: amLODIPine 10 MG Tablet PO (08:07)
[2022-06-29] MEDS: Clopidogrel Bisulfate 75 MG Tablet PO (08:07)
[2022-06-29] MEDS: Pantoprazole Sodium 40 MG Tablet PO (08:07)
[2022-06-29] MEDS: Potassium Chloride Oral Tablet 20 MEQ 40 MEQ PO (10:51)
--- NOTE | 2022-06-29 12:53 | PCM.DC ---
Discharge Instructions Diet Discharge Diet: No restrictions Activity Discharge Activity: Return to Normal Activity Follow Up Care Test Results: Test results from this visit will be discussed in further detail at your follow-up appointment, if applicable. Discharge Plan Admission Admit Date/Time: 06/27/22 17:09 Primary Reason for Your Visit: Chest pain Attending Provider: Irish Yuan Primary Care Provider: Rachid Tsang Consulting Providers: Bryant Esqueda ; Diann Mendenhall ; Dallas Gayle Instructions Patient Instructions: Discharge Instructions for Angina Additional Instructions / Restrictions: *Please take this with you to your next doctors appointment* -You will start aspirin 81mg, this can be obtained [id number] ?Continue all other home medications ? I will be importantly follow-up with your [facility] backup administrator upon discharge as it was recommended that you get a cardiac catheterization. -Please call your primary care provider's office upon discharge to schedule a hospital follow up within 1 week. -For any concerning signs or symptoms please call 911 or proceed to the nearest emergency department Discharge Orders/Prescriptions Prescriptions: New aspirin 81 mg tablet,chewable 81 mg PO DAILY Qty: 30 0RF Continued prednisone 5 mg Tablet 5 mg PO 0900 clopidogrel [Plavix] 75 mg Tablet 75 mg PO 0900 acetaminophen [Arthritis Pain Reliever] 650 mg Tablet Extended Release 1,300 mg PO Q8H famotidine [Pepcid] 20 mg Tablet 20 mg PO 0900 amlodipine 10 mg Tablet 10 mg PO 0900 ezetimibe [Zetia] 10 mg Tablet 10 mg PO 0900 lamotrigine [Lamictal XR] 200 mg Tablet Extended Release 24hr 200 mg PO 2100 Stiolto Respimat 2.5-2.5 mcg/actuation Mist 2 puff INHALATION DAILY atorvastatin [Lipitor] 80 mg Tablet 80 mg PO 2100 mycophenolate mofetil [CellCept] 250 mg Capsule 500 mg PO 0900,2100 omeprazole 40 mg Capsule,Delayed Release(Dr/Ec) 80 mg PO 0900 cyclosporine 25 mg Capsule 75 mg PO 0900,2100 levothyroxine 88 mcg Tablet 88 mcg PO 0700 montelukast [Singulair] 10 mg Tablet 10 mg PO 2100 hydrochlorothiazide 25 mg Tablet 25 mg PO 0900 estradiol [Estrace] 0.01 % (0.1 mg/gram) Cream 1 g VAGINAL MOFR albuterol sulfate [Proventil HFA] 90 mcg/actuation Hfa Aerosol Inhaler 2 puff INHALATION Q4H PRN (Reason: Shortness Of Breath) hydroxyzine pamoate [Vistaril] 25 mg Capsule 25 - 50 mg PO TID PRN (Reason: Anxiety) fenofibrate nanocrystallized [Tricor] 48 mg Tablet 48 mg PO 0900 calcium carbonate 600 mg calcium (1,500 mg) Tablet 600 mg PO 2100 Referrals / Follow Up: Rachid Tsang MD [Primary Care Provider] - In 1 Week Disposition Disposition (needs filled in before D/C Order can be placed): Home, Self Care
--- NOTE | 2022-06-29 13:01 | PCM.DC.SUM ---
Providers Date of Admission: 06/27/22 Date of Discharge: 06/29/22 Primary Care Physician: Dr. Rachid Tsang MD Consultations 06/29/22 12:31 Consult: Cardiology Routine Consulting Provider: Dallas Gayle Reason for Consult: positive stress test EMERGENT Consult: No MD Notified: Yes Date Notified: 06/29/22 Time Notified: 12:31 Method of Notification: Text Reason For Visit: N/V. EKG CHANGES Diagnosis Discharge Diagnosis (1) Chest pain: Status: Acute Code(s): R07.9 - Chest pain, unspecified Plan 1.? Abdominal stress test/unstable angina in a patient with history of CAD 2.? Hypokalemia 3.? Intractable nausea and vomiting 4.? Peripheral artery disease s/p left carotid endarterectomy/hypertension 5. CKD stage III, history of kidney transplant Medications at Discharge Home Medications acetaminophen 650 mg tablet,extended release (Arthritis Pain Reliever) 1,300 mg PO Q8H PAAIN 06/27/22 albuterol sulfate 90 mcg/actuation aerosol inhaler (Proventil HFA) 2 puff inhalation Q4H PRN Shortness Of Breath 06/27/22 amlodipine 10 mg tablet 10 mg PO 0900 BLOOD PRESSURE 06/27/22 atorvastatin 80 mg tablet (Lipitor) 80 mg PO 2100 CHOLESTEROL 06/27/22 calcium carbonate 600 mg calcium (1,500 mg) tablet 600 mg PO 2100 SUPPLEMENT 06/27/22 clopidogrel 75 mg tablet (Plavix) 75 mg PO 0900 BLOOD THINNER 06/27/22 cyclosporine 25 mg capsule 75 mg PO 0900,2100 06/27/22 estradiol 0.01% (0.1 mg/gram) vaginal cream (Estrace) 1 g vaginal MOFR 06/27/22 ezetimibe 10 mg tablet (Zetia) 10 mg PO 0900 CHOLESTEROL 06/27/22 famotidine 20 mg tablet (Pepcid) 20 mg PO 0900 GERD 06/27/22 fenofibrate nanocrystallized 48 mg tablet (Tricor) 48 mg PO 0900 CHOLESTEROL 06/27/22 hydrochlorothiazide 25 mg tablet 25 mg PO 0900 06/27/22 hydroxyzine pamoate 25 mg capsule (Vistaril) 25 - 50 mg PO TID PRN Anxiety 06/27/22 lamotrigine 200 mg tablet,extended release 24 hr (Lamictal XR) 200 mg PO 2100 06/27/22 levothyroxine 88 mcg tablet 88 mcg PO 0700 THYROID 06/27/22 montelukast 10 mg tablet (Singulair) 10 mg PO 2100 ALLERGIES 06/27/22 mycophenolate mofetil 250 mg capsule (CellCept) 500 mg PO 0900,2100 06/27/22 omeprazole 40 mg capsule,delayed release 80 mg PO 0900 GERD 06/27/22 prednisone 5 mg tablet 5 mg PO 0900 06/27/22 tiotropium 2.5 mcg-olodaterol 2.5 mcg/actuation mist for inhalation (Stiolto Respimat) 2 puff inhalation DAILY COPD 06/27/22 aspirin 81 mg chewable tablet 81 mg PO DAILY #30 tabs 06/29/22 Hospital Course Procedures Nuclear stress test and Transthoracic echo Summary of Care Provided Minutes Spent on Discharge: 35 Hospital Course: Ms. Cabezas is a 62-year-old female with a history of hypertension, COPD, renal transplant, carotid artery disease who presented to [facility] 06/27/2022 with nausea and vomiting. When she presented to the emergency room lab work was fairly unremarkable but EKG showed ST to some lateral's and cardiology was contacted and recommended heparin drip. She had a stress test performed. Stress test was slightly abnormal small to moderate lateral myocardial ischemia and cardiac cath was recommended however she preferred to follow-up with the [facility]. Echo obtained as well which showed an EF of 55 to 60% with normal LV systolic function. Cardiology on board and also advised following with the [facility] and continuing on aspirin, statin, Plavix. On day of discharge she was very upset that she felt her anxiety has not been addressed for years but did not report any worsening chest pain, problems with her breathing. Does report she has Alston's esophagus intermittently feels nauseous but this has been roughly unchanged if not somewhat improved, trying to eat breakfast at time of exam. Denied other specific complaints today. Physical Exam Const alert and no apparent distress Constitutional Narrative: Oriented HEENT normocephalic and head/scalp atraumatic Eyes Eyes Narrative: EOM grossly intact, anicteric Neck supple Resp normal respiratory effort and clear to auscultation bilaterally Cardio regular rate and regular rhythm GI soft to palpation, non-tender and non-distended Extremity Extremity Narrative: No edema appreciated Neuro moves all extremities Neuro Narrative: No overt focal deficits appreciated Psych Psych Narrative: Irritable Weight / BMI Weight Weight: 80.8 kg Body Mass Index (BMI) 30.5 ABG / Lab / Microbiology Data Result Diagrams: 06/29/22 06:20 06/29/22 06:20 Laboratory: Laboratory Results - last 24 hr 06/29/22 06:20: WBC 5.1, RBC 5.07, Hgb 12.6, Hct 39.2, MCV 77.3 L, MCH 24.9 L, MCHC 32.1, RDW Std Deviation 47.9 H, RDW Coeff of Pete 17.2 H, Plt Count 314, MPV 8.4, Immature Gran % (Auto) 0.200, Neut % (Auto) 56.4, Lymph % (Auto) 26.3, Parke % (Auto) 15.1 H, Eos % (Auto) 1.2, Baso % (Auto) 0.8, Absolute Neuts (auto) 2.9, Absolute Lymphs (auto) 1.34, Nucleated RBC % 0 06/29/22 06:20: Sodium 135 L, Potassium 3.4 L, Chloride 99, Carbon Dioxide 27.0, Anion Gap 9, BUN 24 H, Creatinine 1.11 H, Estim Creat Clear Calc 45.96, Est GFR (MDRD) Af Amer 64, Est GFR (MDRD) Non-Af 53 L, BUN/Creatinine Ratio 21.6 H, Glucose 104, Calcium 10.0, Total Bilirubin 0.60, AST 25, ALT 17, Alkaline Phosphatase 42 L, Total Protein 8.1, Albumin 4.0, Globulin 4.1, Albumin/Globulin Ratio 1.0 Radiography Diagnostic Testing: Radiology Impression Echocardiogram 06/27/22 19:51 Interpretation Summary The estimated ejection fraction is 55-60 %. Normal LV systolic function Ordering Physician: Bryant Esqueda Referring Physician: Ashok Tsang Performed By: Vijay Monroe RCS D/C Instructions Discharge Diet: No restrictions Meaningful Use Info Meaningful Use Diagnoses (Choose all that apply): None applicable Discharge Plan Admission Admit Date/Time: 06/27/22 17:09 Primary Reason for Your Visit: Chest pain Attending Provider: Irish Yuan Primary Care Provider: Rachid Tsang Consulting Providers: Bryant Esqueda ; Diann Mendenhall ; Dallas Gayle Instructions Patient Instructions: Discharge Instructions for Angina Additional Instructions / Restrictions: *Please take this with you to your next doctors appointment* -You will start aspirin 81mg, this can be obtained [id number] ?Continue all other home medications ? I will be importantly follow-up with your [facility] hvac/r instructor upon discharge as it was recommended that you get a cardiac catheterization. -Please call your primary care provider's office upon discharge to schedule a hospital follow up within 1 week. -For any concerning signs or symptoms please call 911 or proceed to the nearest emergency department Discharge Orders/Prescriptions Prescriptions: New aspirin 81 mg tablet,chewable 81 mg PO DAILY Qty: 30 0RF Continued prednisone 5 mg Tablet 5 mg PO 0900 clopidogrel [Plavix] 75 mg Tablet 75 mg PO 0900 acetaminophen [Arthritis Pain Reliever] 650 mg Tablet Extended Release 1,300 mg PO Q8H famotidine [Pepcid] 20 mg Tablet 20 mg PO 0900 amlodipine 10 mg Tablet 10 mg PO 0900 ezetimibe [Zetia] 10 mg Tablet 10 mg PO 0900 lamotrigine [Lamictal XR] 200 mg Tablet Extended Release 24hr 200 mg PO 2100 Stiolto Respimat 2.5-2.5 mcg/actuation Mist 2 puff INHALATION DAILY atorvastatin [Lipitor] 80 mg Tablet 80 mg PO 2100 mycophenolate mofetil [CellCept] 250 mg Capsule 500 mg PO 0900,2100 omeprazole 40 mg Capsule,Delayed Release(Dr/Ec) 80 mg PO 0900 cyclosporine 25 mg Capsule 75 mg PO 0900,2100 levothyroxine 88 mcg Tablet 88 mcg PO 0700 montelukast [Singulair] 10 mg Tablet 10 mg PO 2100 hydrochlorothiazide 25 mg Tablet 25 mg PO 0900 estradiol [Estrace] 0.01 % (0.1 mg/gram) Cream 1 g VAGINAL MOFR albuterol sulfate [Proventil HFA] 90 mcg/actuation Hfa Aerosol Inhaler 2 puff INHALATION Q4H PRN (Reason: Shortness Of Breath) hydroxyzine pamoate [Vistaril] 25 mg Capsule 25 - 50 mg PO TID PRN (Reason: Anxiety) fenofibrate nanocrystallized [Tricor] 48 mg Tablet 48 mg PO 0900 calcium carbonate 600 mg calcium (1,500 mg) Tablet 600 mg PO 2100 Referrals / Follow Up: Rachid Tsang MD [Primary Care Provider] - In 1 Week Disposition Disposition (needs filled in before D/C Order can be placed): Home, Self Care Charges/Coding Visit Charges Inpatient E&M: 74918 Disch Hosp
[2022-06-29] MEDS: Ensure Plus High Protein 120 ML LIQUID PO (13:42)
[2022-06-29] MEDS: hydrOXYzine PAM 25 MG Capsule PO (13:42)
--- NOTE | 2022-06-29 13:42 | PN.CARD_ITS ---
Subjective Subjective Patient seen and evaluated today at bedside She does not have any active chest pain Objective Data Vital Signs: Vital Signs Temp Pulse Resp BP Pulse Ox O2 Del Method 98.4 F 83 16 148/75 H 98 Room Air 06/29/22 12:10 06/29/22 12:10 06/29/22 12:10 06/29/22 12:10 06/29/22 12:10 06/29/22 12:10 Oxygen Delivery Method Room Air Weight: 178 lb 2.136 oz Body Mass Index (BMI) 30.5 Intake & Output: Intake and Output for Last 24 Hours 06/27/22 06/28/22 06/29/22 23:59 23:59 23:59 Intake Total 650 / 650 360 / 360 Balance 650 / 650 360 / 360 Lab / Micro Data Result Diagrams: 06/29/22 06:20 06/29/22 06:20 Labs: Laboratory Results - last 24 hr 06/29/22 06:20: WBC 5.1, RBC 5.07, Hgb 12.6, Hct 39.2, MCV 77.3 L, MCH 24.9 L, MCHC 32.1, RDW Std Deviation 47.9 H, RDW Coeff of Pete 17.2 H, Plt Count 314, MPV 8.4, Immature Gran % (Auto) 0.200, Neut % (Auto) 56.4, Lymph % (Auto) 26.3, Ward % (Auto) 15.1 H, Eos % (Auto) 1.2, Baso % (Auto) 0.8, Absolute Neuts (auto) 2.9, Absolute Lymphs (auto) 1.34, Nucleated RBC % 0 06/29/22 06:20: Sodium 135 L, Potassium 3.4 L, Chloride 99, Carbon Dioxide 27.0, Anion Gap 9, BUN 24 H, Creatinine 1.11 H, Estim Creat Clear Calc 45.96, Est GFR (MDRD) Af Amer 64, Est GFR (MDRD) Non-Af 53 L, BUN/Creatinine Ratio 21.6 H, Glucose 104, Calcium 10.0, Total Bilirubin 0.60, AST 25, ALT 17, Alkaline Phosphatase 42 L, Total Protein 8.1, Albumin 4.0, Globulin 4.1, Albumin/Globulin Ratio 1.0 Rhythm Strip Rhythm Strip: Sinus Rhythm Rate: 65 Ectopy: None Cardiology Labs/Tests 06/29/22 06:20: WBC 5.1, RBC 5.07, Hgb 12.6, Hct 39.2, MCV 77.3 L, MCH 24.9 L, MCHC 32.1, Plt Count 314, MPV 8.4, Immature Gran % (Auto) 0.200, Neut % (Auto) 56.4, Lymph % (Auto) 26.3, Ward % (Auto) 15.1 H, Eos % (Auto) 1.2, Baso % (Auto) 0.8, Absolute Neuts (auto) 2.9, Nucleated RBC % 0 06/29/22 06:20: Sodium 135 L, Potassium 3.4 L, Chloride 99, Carbon Dioxide 27.0, Anion Gap 9, BUN 24 H, Creatinine 1.11 H, Est GFR (MDRD) Af Amer 64, Est GFR (MDRD) Non-Af 53 L, BUN/Creatinine Ratio 21.6 H, Glucose 104, Calcium 10.0, Total Bilirubin 0.60 Rhythm: Normal sinus rhythm EKG: See depression noted in the inferior lead ECHO: LV systolic function normal, ejection fraction in the range of 55-60 Radiography Diagnostic Testing: Radiology Impression Echocardiogram 06/27/22 19:51 Interpretation Summary The estimated ejection fraction is 55-60 %. Normal LV systolic function Ordering Physician: Bryant Esqueda Referring Physician: Ashok Tsang Performed By: Vijay Monroe RCS Physical Exam Cardio Cardio Narrative: Cardiac rhythm is normal sinus rhythm Cardiac exam S1-S2 is regular Chest exam is clear to auscultation bilateral Assessment & Plan Assessment/Plan (1) Nausea and vomiting: (2) Hypokalemia: (3) Unstable angina: (4) Acute electrocardiogram changes: (5) Chest pain: (6) Peripheral artery disease: PLAN: Plan I saw this patient today at bedside and I discussed with the nursing staff She does not have any active chest pain Patient known to have history of peripheral vascular disease In this admission she presented with nausea vomiting and hypokalemia which is corrected Noted change in the EKG mainly with ST depression in the inferior lead underwent evaluation by nuclear stress test which is mildly abnormal with a small to moderate area of lateral reversible myocardial ischemia with preserved LV function Cardiac care plan recommendations; 1. Patient would like to be seen and followed by her school bus technician at the [facility] From cardiac standpoint patient can be discharged with a low-dose aspirin, atorvastatin, patient was on antiplatelet with clopidogrel for peripheral vascular disease and carotid endarterectomy This was done by her vascular surgeon at [facility] Advised to follow-up earlier with her school bus technician at [facility] Patient had a history of renal transplant.
--- NOTE | 2022-06-29 15:05 | NURSING ---
Patient states she does not have a ride home. Taxi service in unavailable due to the holidays. Patient attempting to call care source insurance to inquire if a ride can be provided.
--- NOTE | 2022-06-29 15:56 | CASEMGMT ---
BRIAN Note SW contacted by bobbin drier inquiring about transportation options for patient as she was informed by other staff the hospital could provide a taxi voucher. BRIAN contacted [employer] and [employer], however, they both report being closed through the holiday weekend. BRIAN attempted to contact [employer], [employer] and [employer], and [employer], however, there was no answer for those providers. BRIAN consults with BRIAN Lynch to inquire about other options and was recommended to contact Physicians to explore options and encourage patient to contact [facility] for transportation. BRIAN contacted [facility] to inquire about transportation options, however, Physician's staff stated there were no wheelchair vans available and cots were not an option. BRIAN contacted bobbin drier to update on options. bobbin drier stated she would request patient contacts insurance as well as tries to make contact with other family members. BRIAN spoke with SELINA Maurice and was informed patient was not willing to contact her daughter for transportation due to her daughter recently having a premature baby and living over an hour away. Kaylene explained patient attempted to call insurance but was hung up on multiple times. bobbin drier explained she would monitor and continue to evaluation with document control supervisor to explore alternative options. Kait Herrera OFFICE SERVICES MANAGER, PARUL
--- NOTE | 2022-07-02 20:10 | CM.ED ---
BRIAN Note BRIAN contacted patient and introduced herself and role as [facility] [employer]. SW verified patient's name and address and inquired about her most recent stay at the hospital. Patient was agreeable to conversation and explained she was given a ride by a nurse during her last stay due to transportation issues. Patient also explained she wanted her chart to be flagged that she had a fistula in her left arm to restrict that arm from having procedures done to it. SW explained she would pass that information along to her mud analysis supervisor to discuss possible options. SW then inquired about patient's current support system and services she receives. Patient explained she has psychiatric services and case management services with [facility] and just started counseling services and case management services with [facility]. Patient explained she will stop utilizing her [facility] case repairer if she decided to continue services with [facility] but isn't sure yet. SW inquired about sending information to patient regarding other counseling resources and patient stated she wanted more information so she could shop around. Patient also voice some transportation concerns so SW also discussed sending other community resources, patient in agreement. Plan: send patient resources via mail for local counseling agencies. Kait GOLD, PARUL
== END 2022-06-29 13:00 | disposition home or self-care (01) ==
LOC: ED 16:47 → PCU 19:41
PROVIDERS: Internal Medicine; Emergency Provider Emergency Medicine; PCP Family Medicine; Visit Provider Internal Medicine
DX: I25.110 Atherosclerotic heart disease of native coronary artery with unstable angina pectoris (principal); J44.9 Chronic obstructive pulmonary disease, unspecified; I73.9 Peripheral vascular disease, unspecified; N18.30 Chronic kidney disease, stage 3 unspecified; R94.39 Abnormal result of other cardiovascular function study; R11.2 Nausea with vomiting, unspecified; Z79.891 Long term (current) use of opiate analgesic; E87.6 Hypokalemia; I12.9 Hypertensive chronic kidney disease with stage 1 through stage 4 chronic kidney disease, or unspecified chronic kidney disease; E78.00 Pure hypercholesterolemia, unspecified; Z79.02 Long term (current) use of antithrombotics/antiplatelets; K21.9 Gastro-esophageal reflux disease without esophagitis; Z94.0 Kidney transplant status; Z79.899 Other long term (current) drug therapy; E03.9 Hypothyroidism, unspecified
CPT/HCPCS: 36415; 71045; 78452; 80048; 80053; 80061; 83735; 84484; 85025; 85610; 85730; 93005; 93017; 93306; 94640; 96374; 97802; 99218; 99285; A9500; A4216; G0378; J2405; J2785

== ENCOUNTER 2022-10-17 17:22 | Emergency (ER) | payer MEDICARE, MEDICAID, SELFPAY ==
[2022-10-17 17:22] VITALS: BP 142/6; PULSE 56; RESP 12; TEMP 36.2; O2SAT 97; BMI 33.9
[2022-10-17 17:24] VITALS: BP 142/66; PULSE 59; RESP 13; TEMP 36.2; O2SAT 97
--- NOTE | 2022-10-17 17:51 | EKG12_ITS ---
Test Reason : DIZZINESS Blood Pressure : / mmHG Vent. Rate : 056 BPM Atrial Rate : 056 BPM P-R Int : 180 ms QRS Dur : 098 ms QT Int : 438 ms P-R-T Axes : 071 054 046 degrees QTc Int : 422 ms Sinus bradycardia Incomplete right bundle branch block Borderline ECG Confirmed by TRAE BIGGS ([id number]), film editor BIANCA SHARMA ([id number]) on 10/22/2022 8:03:52 AM Referred By: CHENCHO Confirmed By:TRAE BIGGS
--- NOTE | 2022-10-17 17:53 | EDS_ITS ---
HPI History of Present Illness Chief Complaint: Dizziness Informant: patient Narrative Narrative: Presents because she says she just does not feel well. Triage note mentions a couple weeks but she states is just a few days. She has had increased GERD and reflux symptoms for about 2 weeks though. She states she was around her granddaughter over the weekend. Her granddaughter had a very harsh cough. The patient's now started coughing about 2 or so days ago. She states is not as bad as her granddaughters though. She is not bringing up any material. She is not actually short of breath. She also has some soreness of her anterior chest. She is concerned because she has had heart disease. But she is also been having worse reflux with the taste of bile in her throat and the typical burning feelings. It is hard to tell if this is from heart disease or her reflux or the increased coughing. She states she has been having a lot of just constant baseline nausea but no vomiting or diarrhea. She is able to eat although her appetite is down. She is able to drink fluids because she is very careful about that due to her kidney transplant. She is not having pain over her kidney. She is not having any change in urination symptoms or change in color or odor or frequency. She has been able to get her meds down and keep them down. No rashes. She states what prompted her to come in is that she had 1 blood pressure at home that was 113 systolic. That was low for her. [facility] Medical History Cancer of tonsil Carotid arterial disease Chest pain COPD (chronic obstructive pulmonary disease) GERD (gastroesophageal reflux disease) Hepatitis High cholesterol HTN (hypertension) Hypothyroid Irregular heart beat Kidney disease Kidney failure Renal vein stenosis of kidney transplant Unstable angina Home Medications acetaminophen 650 mg tablet,extended release (Arthritis Pain Reliever) 1,300 mg PO Q8H PAAIN 06/27/22 [History Last Taken Unknown] albuterol sulfate 90 mcg/actuation aerosol inhaler (Proventil HFA) 2 puff inhalation Q4H PRN Shortness Of Breath 06/27/22 [History Last Taken 06/26/22] amlodipine 10 mg tablet 10 mg PO 0900 BLOOD PRESSURE 06/27/22 [History Last Taken 06/27/22 09:00] atorvastatin 80 mg tablet (Lipitor) 80 mg PO 2100 CHOLESTEROL 06/27/22 [History Last Taken 06/26/22 21:00] calcium carbonate 600 mg calcium (1,500 mg) tablet 600 mg PO 2100 SUPPLEMENT 06/27/22 [History Last Taken 06/26/22 21:00] clopidogrel 75 mg tablet (Plavix) 75 mg PO 0900 BLOOD THINNER 06/27/22 [History Last Taken 06/27/22 09:00] cyclosporine 25 mg capsule 75 mg PO 0900,2100 06/27/22 [History Last Taken 06/27/22 09:00] estradiol 0.01% (0.1 mg/gram) vaginal cream (Estrace) 1 g vaginal MOFR 06/27/22 [History Last Taken 06/24/22] ezetimibe 10 mg tablet (Zetia) 10 mg PO 0900 CHOLESTEROL 06/27/22 [History Last Taken 06/27/22 09:00] famotidine 20 mg tablet (Pepcid) 20 mg PO 0900 GERD 06/27/22 [History Last Taken 06/27/22 09:00] fenofibrate nanocrystallized 48 mg tablet (Tricor) 48 mg PO 0900 CHOLESTEROL 06/27/22 [History Last Taken 06/27/22 09:00] hydrochlorothiazide 25 mg tablet 25 mg PO 0900 06/27/22 [History Last Taken 06/27/22 09:00] hydroxyzine pamoate 25 mg capsule (Vistaril) 25 - 50 mg PO TID PRN Anxiety 06/27/22 [History Last Taken 06/26/22 21:00] lamotrigine 200 mg tablet,extended release 24 hr (Lamictal XR) 200 mg PO 2100 06/27/22 [History Last Taken 06/26/22 21:00] levothyroxine 88 mcg tablet 88 mcg PO 0700 THYROID 06/27/22 [History Last Taken 06/27/22 07:00] montelukast 10 mg tablet (Singulair) 10 mg PO 2100 ALLERGIES 06/27/22 [History Last Taken 06/26/22 21:00] mycophenolate mofetil 250 mg capsule (CellCept) 500 mg PO 0900,2100 06/27/22 [History Last Taken 06/27/22 09:00] omeprazole 40 mg capsule,delayed release 80 mg PO 0900 GERD 06/27/22 [History Last Taken 06/27/22 09:00] prednisone 5 mg tablet 5 mg PO 0900 06/27/22 [History Last Taken 06/27/22 09:00] tiotropium 2.5 mcg-olodaterol 2.5 mcg/actuation mist for inhalation (Stiolto Respimat) 2 puff inhalation DAILY COPD 06/27/22 [History Last Taken Unknown] aspirin 81 mg chewable tablet 81 mg PO DAILY #30 tabs 06/29/22 [Rx Last Taken Unknown] Allergy/AdvReac Type Severity Reaction Status Date / Time cyclobenzaprine Allergy Rash Verified 10/17/22 17:27 [From Flexeril] Opioids - Morphine Analogues Allergy Rash Verified 10/17/22 17:27 grapefruit AdvReac Other Verified 10/17/22 17:27 passion fruit AdvReac Other Verified 10/17/22 17:27 Family History Other Heart disease Surgical History Kidney transplant recipient Social History Smoking Status: Never smoker substance use type: marijuana ROS ROS ED Constitutional Constitutional ED: Denies chills, fever(s), subjective or sweats Eyes Eyes: Denies change in vision ENT ENT ED: Reports other Details: Positive acid taste in throat with reflux. ; Denies rhinorrhea or sore throat Cardiovascular Cardiovascular: Reports chest pain and other Details: Mild aching and burning as in history of present illness Respiratory/Chest Respiratory/Chest: Reports cough; Denies dyspnea Gastrointestinal Gastrointestinal: Reports nausea; Denies abdominal pain, diarrhea or vomiting Genitourinary Genitourinary ED: Denies dysuria, hematuria or urinary frequency Musculoskeletal Musculoskeletal: Denies myalgias Integumentary Denies rash Neurologic Neurologic: Denies headache(s) Hematologic/Lymphatic Hematologic/Lymphatic: Denies easy bleeding, easy bruising or lymphadenopathy Allergic/Immunologic Allergic/Immunologic ED: Denies urticaria EXAM Physical Exam Narrative Exam Narrative: Patient is awake alert no cute distress. 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 This is normal for her. Neck shows no JVD Heart is regular with a rate about 60. I hear no murmur gallop or rub. Peripheral pulses are normal. Tones are not muffled. Lungs are clear bilaterally. She does not cough while I am in the room. Her saturations are normal at 97% on room air showing no hypoxia. Abdomen is soft and nontender with normal bowel sounds. No mass. I do not get any tenderness over her kidney in the right lower quadrant area. Extremities show no rashes. No swelling. No notable tenderness. Neurologically she is awake alert appropriate good informant for details. Const Vital Signs: 10/17/22 17:22 10/17/22 17:24 10/17/22 17:25 Temperature 97.1 F L 97.1 F L Temperature Source Oral Oral Pulse Rate 56 L 59 L Respiratory Rate 12 13 Respiratory Effort Normal Non-Labored Respiratory Pattern Normal Blood Pressure 142/6 H 142/66 H Blood Pressure Mean 51 91 Pulse Ox 97 97 Oxygen Delivery Method Room Air Room Air 10/17/22 20:50 Temperature Temperature Source Pulse Rate 87 Respiratory Rate 18 Respiratory Effort Respiratory Pattern Blood Pressure 130/98 H Blood Pressure Mean Pulse Ox 97 Oxygen Delivery Method MDM MDM MDM Narrative Medical decision making narrative: My independent interpretation the patient's PA and lateral chest x-ray shows no acute process. Final reading is no radiographic evidence of acute cardiopulmonary disease. Patient CBC shows mild anemia but normal white count platelet electrolytes showed mild BUN to creatinine ratio elevation but just mild. Liver function test normal. Base normal. Urinalysis normal. COVID and influenza are negative. Patient has cough generalized malaise and was exposed to a grandchild with similar symptoms. COVID and influenza are negative. Blood work is good. Renal function is well-preserved. Her creatinine is at her baseline and actually a bit better than normal. Patient would like to go home. I think this is reasonable. I think exposing her to any inpatient potential infectious source would be higher risk than being home. Certainly if she develops new symptoms worsening symptoms problems getting fluids down or change in urine output she should return immediately. Lab Data Attestation: I reviewed the patient's lab results. Labs: Laboratory Results - last 24 hr 10/17/22 10/17/22 10/17/22 17:28 17:28 18:05 WBC 5.8 RBC 4.27 Hgb 10.2 L Hct 32.7 L MCV 76.6 L MCH 23.9 L MCHC 31.2 L RDW Std Deviation 49.9 H RDW Coeff of Pete 18.3 H Plt Count 291 MPV 8.8 Immature Gran % (Auto) 0.200 Neut % (Auto) 70.4 H Lymph % (Auto) 16.4 L [place] % (Auto) 11.6 H Eos % (Auto) 0.5 Baso % (Auto) 0.9 Absolute Neuts (auto) 4.1 Absolute Lymphs (auto) 0.95 Nucleated RBC % 0 Sodium 136 Potassium 3.5 Chloride 104 Carbon Dioxide 27.0 Anion Gap 5 BUN 21 H Creatinine 0.96 Estim Creat Clear Calc 55.38 Est GFR (MDRD) Af Amer 76 Est GFR (MDRD) Non-Af 63 BUN/Creatinine Ratio 22.0 H Glucose 119 H Calcium 9.6 Total Bilirubin 0.60 AST 17 ALT 15 Alkaline Phosphatase 37 L Troponin I High Sens 9 Total Protein 7.5 Albumin 3.8 Globulin 3.7 Albumin/Globulin Ratio 1.0 Lipase 35 Urine Color Yellow Urine Clarity Sl. Cloudy Urine pH 8.0 Ur Specific [place] 1.015 Urine Protein Negative Urine Glucose (UA) Normal Urine Ketones Negative Urine Occult Blood Negative Urine Nitrite Negative Urine Bilirubin Negative Urine Urobilinogen Normal Ur Leukocyte Esterase Negative Urine RBC 0 SEEN Urine WBC 0 SEEN Ur Squamous Epith Cells 0 SEEN Amorphous Sediment 2+ Urine Bacteria 0 SEEN Urine Mucus 0 SEEN Radiography Diagnostic Testing: Clinical Impression(s) from Imaging Studies Chest X-Ray 10/17/22 18:20 IMPRESSION: No radiographic evidence of acute cardiopulmonary disease. Electronically Signed: Reinaldo Munoz DO at 18:35 EDT Reading Location ID and State: [facility] / [place] Tel [phone], Service support , Discharge Plan Triage Chief Complaint: Dizziness ED Provider: Sylvain Garcia Dx/Rx/DC Orders Clinical Impression: Cough, Generalized weakness, History of renal transplant Instructions: ED Weakness (Uncertain Cause) Prescriptions: No Action prednisone 5 mg Tablet 5 mg PO 0900 clopidogrel [Plavix] 75 mg Tablet 75 mg PO 0900 acetaminophen [Arthritis Pain Reliever] 650 mg Tablet Extended Release 1,300 mg PO Q8H famotidine [Pepcid] 20 mg Tablet 20 mg PO 0900 amlodipine 10 mg Tablet 10 mg PO 0900 ezetimibe [Zetia] 10 mg Tablet 10 mg PO 0900 lamotrigine [Lamictal XR] 200 mg Tablet Extended Release 24hr 200 mg PO 2100 Stiolto Respimat 2.5-2.5 mcg/actuation Mist 2 puff INHALATION DAILY atorvastatin [Lipitor] 80 mg Tablet 80 mg PO 2100 mycophenolate mofetil [CellCept] 250 mg Capsule 500 mg PO 0900,2099 omeprazole 40 mg Capsule,Delayed Release(Dr/Ec) 80 mg PO 0900 cyclosporine 25 mg Capsule 75 mg PO 0900,2099 levothyroxine 88 mcg Tablet 88 mcg PO 0700 montelukast [Singulair] 10 mg Tablet 10 mg PO 2100 hydrochlorothiazide 25 mg Tablet 25 mg PO 0900 estradiol [Estrace] 0.01 % (0.1 mg/gram) Cream 1 g VAGINAL MOFR albuterol sulfate [Proventil HFA] 90 mcg/actuation Hfa Aerosol Inhaler 2 puff INHALATION Q4H PRN (Reason: Shortness Of Breath) hydroxyzine pamoate [Vistaril] 25 mg Capsule 25 - 50 mg PO TID PRN (Reason: Anxiety) fenofibrate nanocrystallized [Tricor] 48 mg Tablet 48 mg PO 0900 calcium carbonate 600 mg calcium (1,500 mg) Tablet 600 mg PO 2100 aspirin 81 mg tablet,chewable 81 mg PO DAILY Qty: 30 0RF Primary Care Provider: Rachid Tsang Referrals: Rachid Tsang MD [Primary Care Provider] - 3-5 Days if not improving Disposition Disposition: Home, Self Care Discharge Date/Time: 10/17/22 20:54
[2022-10-17] MEDS: proMETHazine 25 MG/ML Syringe 12.5 MG IM (18:04)
[2022-10-17 18:09] LABS: Absolute Lymphocyte Count 0.95 X10^3/uL (0.83-4.51); Absolute Neutrophil Count 4.1 X10^3/uL (2.0-7.7); Basophil# 0.05 X10^3/uL; Basophil% 0.9 % (0-1); Eosinophil# 0.03 X10^3/uL; Eosinophils% 0.5 % (0-5); Hematocrit 32.7 % (37-47); Hemoglobin 10.2 g/dL (12.0-15.0); Lymphocyte # 0.95 X10^3/ul (0.83-4.51); Lymphocyte % 16.4 % (19-41); Mean Corp Hgb Conc 31.2 g/dL (32-36); Mean Corpuscular Hgb 23.9 pg (27.0-32.0); Mean Corpuscular Volume 76.6 fL (81-99); Mean Platelet Vol. 8.8 fl (6.2-12.0); Monocyte# 0.67 X10^3/uL; Monocyte% 11.6 % (0-10); NRBC Flagged by Analyzer 0 % (0-5); Neutrophil # 4.09 X10^3/uL (2.7-7.7); Neutrophil % 70.4 % (47-70); Platelet Count 291 K/mm3 (150-450); RBC Distribution Width CV 18.3 % (11.6-14.6); RBC Distribution Width SD 49.9 fl (35.1-43.9); Red Blood Count 4.27 M/mm3 (4.2-5.4); White Blood Count 5.8 K/mm3 (4.4-11.0)
--- NOTE | 2022-10-17 18:20 | RAD_ITS ---
INDICATION: cough EXAMINATION/TECHNIQUE: X-RAY - XR Chest 2 Views COMPARISON: None. FINDINGS: LINES/DEVICES: None. LUNGS: No consolidation, edema or effusion. No pneumothorax. MEDIASTINUM AND CARDIOVASCULAR STRUCTURES: Cardiac silhouette not enlarged. Central airways and mediastinal contour are unremarkable. BONES AND SOFT TISSUES: Unremarkable. RAD/Chest PA and Lateral IMPRESSION: No radiographic evidence of acute cardiopulmonary disease. Electronically Signed: Reinaldo Munoz DO at 18:35 EDT ,
[2022-10-17 18:27] LABS: AST(SGOT) 17 U/L (15-37); Alanine Aminotransfer ALT/SGPT 15 U/L (13-56); Albumin, Serum 3.8 g/dL (3.2-5.0); Alkaline Phosphatase 37 U/L (45-117); Anion Gap 5 (5-15); BUN 21 mg/dL (7-18); Calcium,Total 9.6 mg/dL (8.5-10.1); Chloride 104 mmol/L (98-107); Creatinine, Serum 0.96 mg/dL (0.55-1.02); EST Glomerular Filtration Rate 63 mL/min (>60); Est Glom Filt Rate - Afr Amer 76 mL/min (>60); Estimated Creatinine Clearance 55.38 ml/min; Globulin 3.7 g/dL (2.2-4.2); Glucose 119 mg/dL (74-106); Lipase 35 U/L (13-75); Potassium 3.5 mmol/L (3.5-5.1); Protein, Total 7.5 g/dL (6.4-8.2); Sodium Level 136 mmol/L (136-145); Troponin-I HS 9 pg/mL (3.0-54.0)
[2022-10-17 18:27] LABS: Bacteria 0 SEEN /hpf (None Seen); Mucous, Urine 0 SEEN /hpf (<or=2+); Red Blood Cells-Urine 0 SEEN /hpf (0-5); Squamous Epithelial Cells - UA 0 SEEN /hpf (5-10); White Blood Cells 0 SEEN /hpf (0-5)
[2022-10-17 18:33] LABS: Color, Urine Yellow (Yellow); Glucose, Dipstick Normal (Normal); Ketone-Dipstick Negative (Negative); Leukocyte Esterase-Dipstick Negative /ul (Negative); Nitrite-Dipstick Negative (Negative); Occult Blood-Urine Negative /ul (Negative); Protein-Dipstick Negative (Negative); Specific Gravity, Urine 1.015 (1.002-1.030); Urine Bilirubin Dipstick Negative (Negative); Urine Clarity Sl. Cloudy (Clear); Urine Urobilinogen Normal (Normal)
[2022-10-17 19:00] LABS: Amorphous Sediment 2+
[2022-10-17 20:50] VITALS: BP 130/98; PULSE 87; RESP 18; O2SAT 97
--- NOTE | 2022-10-20 12:55 | ED.RN ---
pt calls asking if they did a rsvp test when she was here.
== END 2022-10-17 20:54 | disposition home or self-care (01) ==
PROVIDERS: Emergency Provider Emergency Medicine; PCP Family Medicine; Visit Provider Emergency Medicine
DX: R53.1 Weakness (principal); J44.9 Chronic obstructive pulmonary disease, unspecified; I10 Essential (primary) hypertension; E78.00 Pure hypercholesterolemia, unspecified; Z94.0 Kidney transplant status; R05.9 Cough, unspecified; Z79.899 Other long term (current) drug therapy; K21.9 Gastro-esophageal reflux disease without esophagitis; E03.9 Hypothyroidism, unspecified; Z79.52 Long term (current) use of systemic steroids; Z79.82 Long term (current) use of aspirin
CPT/HCPCS: 71046; 80053; 81001; 83690; 84484; 85025; 87428; 93005; 96360; 96372; 99285; J7040

== ENCOUNTER 2022-11-12 08:00 | Outpatient (RCR) | payer MEDICARE, MEDICAID, SELFPAY ==
--- NOTE | 2022-11-12 09:05 | BH.SGPN.GN ---
Behaviors/Verbalizations/Mental Status: [] Eye contact is good. Motor activity is appropriate. Appearance is casual. Speech is Appropriate. Mood is depressed. Affect is congruent. Thoughts are linear and logical. No evidence of psychosis. Client Response/Progress/Benefit: [] Pt participated at times during the goup discussion. Attentive. Shared with the group that today was her first day in IOP. Long-standing mental health struggles. Currently increased anxiety and depression. She is unsure of her diagnosis and feels overall she has been misdiagnosed and treated. Has had several losses in her life and is currently estranged from one of her daughters. Group provided feedback and support. Also provided advice for her first day in IOP which was beneficial. Will continue in IOP to maintain safety, stabilize mood, and improve functioning. Narrative Note: []
--- NOTE | 2022-11-12 11:10 | BH.SGPN.GN ---
Behaviors/Verbalizations/Mental Status: []Pt alert and oriented, neatly dressed and groomed. Eye contact good. Motor activity appropriate. Speech within normal limits. Affect congruent, mood anxious. Thoughts linear, logical, no signs of hallucinations or delusions Client Response/Progress/Benefit: []Pt responded well to session, taking notes and actively listening to peers. Group discussed the different categories of coping skills which included distraction, emotional release, grounding, self-love, and thought challenging.? Pt reported she wanted to just ?observe? on her first day, so pt did not complete a coping skills menu. Pt did seem to benefit from increasing repertoire of healthy coping skills and gaining insight from peers. Pt?s first day of IOP tx. Pt will continue IOP tx to prevent decompensation, increase healthy coping skills, and gain social support. ??? Narrative Note: []
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
--- NOTE | 2022-11-13 11:10 | BH.SGPN.GN ---
Behaviors/Verbalizations/Mental Status: [] Client alert and oriented, casually dressed and groomed. Eye contact good. Motor activity appropriate. Speech within normal limits. Affect constricted, mood depressed. Thoughts linear, logical, no signs of hallucinations or delusions Client Response/Progress/Benefit: [] Client responded well to session AEB client listening attentively to others and providing input during group discussion. Client did well in the activity to be assertive and ask for feedback. Recognizes if group wasn't assertive in activity, they wouldn't have been successful. Discussed with group communication strategies used to make activity successful. Attentive during psychoeducation on interpersonal DBT skill FRANCISCO. Client seemed to benefit from increasing awareness of healthy strategies to improve communication. Will continue IOP tx to improve daily functioning, increase healthy coping skills, and prevent decompensation.
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
--- NOTE | 2022-11-13 12:25 | BH.DR.ITP ---
Initial Treatment Plan Patient Information Visit Information: ADMISSION DATE: EXPECTED LOS: 4-6 weeks Problems/Symptoms Problem #1:: Mood instability Symptom:: Sadness, rumination, guilt, anhedonia, passive thoughts of , suicidal ideation, low energy. Problem #2:: Anxiety Symptom:: Worry, rumination, avoidance, nightmares, panic attacks
[2022-11-13 14:45] VITALS: BP 141/79; PULSE 65
--- NOTE | 2022-11-14 09:01 | BH.SGPN.GN ---
Behaviors/Verbalizations/Mental Status: []Pt alert and oriented, casually dressed and groomed. Eye contact fair. Motor activity appropriate. Speech within normal limits. Affect congruent, mood dysthymic. Thoughts linear, logical, no signs of hallucinations or delusions. Reviewed pt?s symptom tracker, indicates a 1/5, with 5 being severe, for suicidal ideation and a 0/5 for suicidal intention. This is pt's baseline. Client Response/Progress/Benefit: []Pt responded well to session, attentive and receptive to feedback. Patient verbalized connecting with other comments various group members had made throughout their check-in. Client stated she did not want to check in this morning because she was having too much going on. Seemed to benefit from support from peers. Pt will continue IOP tx to increase healthy coping, improve emotional regulation, and prevent decompensation.
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
--- NOTE | 2022-11-18 14:28 | BH.DS ---
Discharge Summary - Demographics Date of Admission:: 11/12/22 Discharge Date: 11/18/22 Presenting Problems at Admission:: The patient has a longstanding history of depression, anxiety, PTSD, bipolar disorder, substance use disorder. She last worked in 2020 and is on disability since then for bipolar disorder. She reports that since the COVID- pandemic her mental health has slowly worsened. She lost 4 close friends during the pandemic and recently lost another close male friend who had a stroke and . This is caused her depression and anxiety to worsen and she is seeking help for this. In the past several months she has experienced sadness, crying spells, panic attacks, erratic moods, isolation, rumination, guilt and anhedonia. She had suicidal thoughts a few days ago and planned on cutting herself to but she saw photos of her grandchildren and this caused her to not go through with her plan. She does have passive thoughts of , reports ability to maintain safety. Discharge Diagnoses:: 1. Bipolar, NOS (F31.9). 2. Generalized anxiety disorder. 3. PTSD. 4. History of polysubstance use disorder. 5. Alcohol use disorder?sober for 7 years Reason for Discharge:: Client called in today to inform staff she does not want to continue with the Intensive Outpatient Program (IOP) at this time. Client is choosing to discharge from [facility] effective today. - Treatment Progress During Treatment & Response: No progress observed given client only attended 3 IOP sessions. Client was overall receptive to group therapy, but noted several times she felt like she was too old and wouldn't be able to connect with others. Client had difficulty identifying treatment goals for individual counseling. Issues Still to be Addressed:: Client could benefit from work on increasing healthy coping skills, challenging negative thought patterns, improving emotion regulation, and anger management. Client could benefit from trauma treatment. Discharge Recommendations/Instructions:: Client elected to discharge from [facility] after her first week in the program which did not provide enough time to establish her with outpatient providers. Discharge Handout: Complete Discharge Handout with client on aftercare options and continuity of care.
== END 2022-11-18 13:37 | disposition home or self-care (01) ==
LOC: BHIOP 08:00
PROVIDERS: PCP Family Medicine; Referring Provider Psychiatry & Neurology Psychiatry; Visit Provider Psychiatry & Neurology Psychiatry
DX: F31.9 Bipolar disorder, unspecified (principal); F41.9 Anxiety disorder, unspecified; F43.10 Post-traumatic stress disorder, unspecified; F10.90 Alcohol use, unspecified, uncomplicated
CPT/HCPCS: S9480; 90837; 90853

== ENCOUNTER 2022-12-03 11:22 | Emergency (ER) | payer MEDICARE, MEDICAID, SELFPAY ==
[2022-12-03 11:23] VITALS: BP 144/79; PULSE 72; RESP 18; TEMP 36.3; O2SAT 93; BMI 28.1
--- NOTE | 2022-12-03 11:27 | CM.ED ---
Social Work SW was contacted by [facility] staff and informed patient is actively suicidal, hopeless, and has had a plan to slit her wrist in the tub for over a month with thoughts increasing to act on plan. Patient has already been assessed by [facility]; patient needs to be medically cleared for referrals to be sent. Care team updated. Plan: [facility] recommending inpatient psych hospitalization once patient is medically cleared Kait GOLD, PARUL
--- NOTE | 2022-12-03 11:41 | EX.ED.VIS.PS ---
HPI HPI - Psych History of Present Illness Chief Complaint: Suicidal Detail of Chief Complaint: Depression and suicidal ideation Informant: patient Narrative Narrative: Patient presents to the emergency department with complaint of suicidal thoughts. Patient states that she has been feeling depressed for months. A month ago she had thoughts of slitting her wrists and laying in the bathtub. She actually got up 1 night and ran the bathtub but decided not to cut her wrist. She has 3 prior suicide attempts in the past with drug overdose. Patient states that yesterday she had a traumatic event that triggered everything to come back. She overheard another individual who had been drinking being belligerent and racist which triggered her because she has mixed grandchildren. Patient denies auditory or visual hallucinations. [facility] Medical History (Updated 12/03/22 @ 12:[address] Brian Stauffer, ) Bipolar disorder, unspecified Cancer of tonsil Carotid arterial disease Chest pain COPD (chronic obstructive pulmonary disease) Generalized anxiety disorder GERD (gastroesophageal reflux disease) Hepatitis High cholesterol HTN (hypertension) Hypothyroid Irregular heart beat Kidney disease Kidney failure Renal vein stenosis of kidney transplant Unstable angina Home Medications acetaminophen 650 mg tablet,extended release (Arthritis Pain Reliever) 1,300 mg PO Q8H PAAIN 06/27/22 [History Last Taken Unknown] albuterol sulfate 90 mcg/actuation aerosol inhaler (Proventil HFA) 2 puff inhalation Q4H PRN Shortness Of Breath 06/27/22 [History Last Taken 06/26/22] amlodipine 10 mg tablet 10 mg PO 0900 BLOOD PRESSURE 06/27/22 [History Last Taken 06/27/22 09:00] atorvastatin 80 mg tablet (Lipitor) 80 mg PO 2100 CHOLESTEROL 06/27/22 [History Last Taken 06/26/22 21:00] clopidogrel 75 mg tablet (Plavix) 75 mg PO 0900 BLOOD THINNER 06/27/22 [History Last Taken 06/27/22 09:00] cyclosporine 25 mg capsule 75 mg PO 0900,2100 06/27/22 [History Last Taken 06/27/22 09:00] estradiol 0.01% (0.1 mg/gram) vaginal cream (Estrace) 1 g vaginal MOFR 06/27/22 [History Last Taken 06/24/22] ezetimibe 10 mg tablet (Zetia) 10 mg PO 0900 CHOLESTEROL 06/27/22 [History Last Taken 06/27/22 09:00] famotidine 20 mg tablet (Pepcid) 20 mg PO 0900 GERD 06/27/22 [History Last Taken 06/27/22 09:00] fenofibrate nanocrystallized 48 mg tablet (Tricor) 48 mg PO 0900 CHOLESTEROL 06/27/22 [History Last Taken 06/27/22 09:00] hydrochlorothiazide 25 mg tablet 25 mg PO 0900 06/27/22 [History Last Taken 06/27/22 09:00] levothyroxine 88 mcg tablet 88 mcg PO 0700 THYROID 06/27/22 [History Last Taken 06/27/22 07:00] montelukast 10 mg tablet (Singulair) 10 mg PO 2100 ALLERGIES 06/27/22 [History Last Taken 06/26/22 21:00] mycophenolate mofetil 250 mg capsule (CellCept) 500 mg PO 0900,2100 06/27/22 [History Last Taken 06/27/22 09:00] omeprazole 40 mg capsule,delayed release 80 mg PO 0900 GERD 06/27/22 [History Last Taken 06/27/22 09:00] prednisone 5 mg tablet 5 mg PO 0900 06/27/22 [History Last Taken 06/27/22 09:00] aspirin 81 mg chewable tablet 81 mg PO DAILY #30 tabs 06/29/22 [Rx Last Taken Unknown] cariprazine 1.5 mg capsule (Vraylar) 1.5 mg PO DAILY #30 caps 11/13/22 [Rx Last Taken Unknown] carvedilol 12.5 mg tablet 12.5 mg PO BID 11/13/22 [History Last Taken Unknown] clonazepam 0.5 mg tablet 0.25 mg PO DAILY PRN PRN Anxiety 11/13/22 [History Last Taken Unknown] isosorbide mononitrate 60 mg tablet,extended release 24 hr 60 mg PO DAILY 11/13/22 [History Last Taken Unknown] potassium chloride 10 mEq tablet,extended release 10 meq PO DAILY 11/13/22 [History Last Taken Unknown] Allergy/AdvReac Type Severity Reaction Status Date / Time cyclobenzaprine Allergy Rash Verified 12/03/22 11:28 [From Flexeril] Opioids - Morphine Analogues Allergy Rash Verified 12/03/22 11:28 grapefruit AdvReac Other Verified 12/03/22 11:28 passion fruit AdvReac Other Verified 12/03/22 11:28 quetiapine [From Seroquel] AdvReac Other Verified 12/03/22 11:28 Family History Other Heart disease Surgical History Kidney transplant recipient Social History Smoking Status: Never smoker substance use type: marijuana ROS ROS ED Review of Systems ROS Unobtainable: other Constitutional Constitutional ED: Reports lethargy; Denies chills, fever(s), sweats or weight loss Eyes Eyes: Denies blurry vision, change in vision or diplopia ENT ENT ED: Denies rhinorrhea or sore throat Cardiovascular Cardiovascular: Denies chest pain, orthopnea or racing heartbeat Respiratory/Chest Respiratory/Chest: Denies cough, dyspnea, dyspnea on exertion, orthopnea or sputum Gastrointestinal Gastrointestinal: Denies abdominal pain, diarrhea, nausea or vomiting Genitourinary Genitourinary ED: Denies dysuria, hematuria or urinary frequency Musculoskeletal Musculoskeletal: Denies arthralgias, back pain, myalgias or neck pain Integumentary Denies abscess, Abrasions or rash Neurologic Neurologic: Denies headache(s) or weakness Psychiatric Psychiatric: Reports depression and suicidal thoughts; Denies anxiety Endocrine Endocrinology: Denies polydipsia, polyphagia or polyuria Hematologic/Lymphatic Hematologic/Lymphatic: Denies easy bleeding, easy bruising or lymphadenopathy Allergic/Immunologic Allergic/Immunologic ED: Denies mouth swelling, tongue swelling or urticaria EXAM Physical Exam Const Vital Signs: 12/03/22 11:23 Temperature 97.4 F L Temperature Source Temporal Pulse Rate 72 Respiratory Rate 18 Blood Pressure 144/79 H Blood Pressure Mean 100 Pulse Ox 93 Oxygen Delivery Method Room Air Positive well nourished and well developed General Appearance ED: well developed and NAD HEENT Reports TM's clear and moist mucous membranes normocephalic and atraumatic; Negative for trauma or tenderness Tympanic Membrane ED: Yes TM's clear Eyes PERRL and EOMs intact bilaterally General Eye ED: Negative for pale conjunctiva or scleral icterus Neck no lymphadenopathy, supple and no JVD General: Negative for tenderness Chest Wall inspection of chest normal and palpation of chest normal Chest: Negative for tenderness Resp normal respiratory effort and clear to auscultation bilaterally Effort and Inspection: Negative for respiratory distress or pain with movement Auscultation: Negative for rhonchi, wheezes or diminished lung sounds Cardio regular rate, regular rhythm, S1 normal heart sound, S2 normal heart sound and no murmurs Peripheral Pulses: pulses 2+ throughout GI normal to inspection, nondistended, normoactive bowel sounds, soft to palpation, non-tender, non-distended and no masses Back/Spine no CVA tenderness and no thoracic nor lumbar tenderness Extremity normal to inspection General Extremety ED: Negative for edema General Extremity: Negative for edema Neuro oriented x3, CN's II-XII intact bilaterally, no sensory deficits noted and gait normal Sensorium / Orientation: awake, alert, oriented to person, oriented to place and oriented to time Motor Exam: strength 5/5 throughout and strength abnormal Psych mental status grossly normal, denies hallucinations and denies homicidal ideation; Negative for denies suicidal ideation Psych Narrative: Patient with depression and suicidal thoughts. Activity / Motor Behavior: appropriate eye contact Mood & Affect: sad and tearful Thought Process: normal thought process Skin no rashes or lesions noted and no wounds MDM MDM MDM Narrative Medical decision making narrative: Patient presents with history of depression and thoughts of self-harm. Patient has a plan on what she would do to harm herself and that she would cut her wrists. I am told by our child welfare social worker patient has already been evaluated by crisis and they recommended placement to psychiatric facility. She is here for medical clearance. Patient had basic lab work-up which was unremarkable as well as a toxicology screen and urinalysis that were unremarkable. Patient had an EKG that showed a sinus rhythm with a rate of 65 bpm with no acute ST segment changes. Patient again will be evaluated by crisis for placement to psychiatric facility for depression and suicidal ideation. Patient medically cleared for psychiatric facility. Lab Data Attestation: I reviewed the patient's lab results. Labs: Laboratory Results - last 24 hr 12/03/22 12/03/22 12/03/22 11:45 11:45 12:15 WBC 6.1 RBC 4.49 Hgb 12.2 Hct 37.4 MCV 83.3 MCH 27.2 MCHC 32.6 RDW Std Deviation 70.5 H RDW Coeff of Pete 23.2 H Plt Count 261 MPV 8.7 Immature Gran % (Auto) 0.200 Neut % (Auto) 76.6 H Lymph % (Auto) 12.3 L [place] % (Auto) 8.8 Eos % (Auto) 1.3 Baso % (Auto) 0.8 Absolute Neuts (auto) 4.7 Absolute Lymphs (auto) 0.75 L Nucleated RBC % 0 Differential Comment SCANNED Anisocytosis 2+ Sodium Potassium Chloride Carbon Dioxide Anion Gap BUN Creatinine Estim Creat Clear Calc Est GFR (MDRD) Af Amer Est GFR (MDRD) Non-Af BUN/Creatinine Ratio Glucose Calcium Total Bilirubin AST ALT Alkaline Phosphatase Total Protein Albumin Globulin Albumin/Globulin Ratio Urine Color Yellow Urine Clarity Clear Urine pH 7.0 Ur Specific [place] 1.010 Urine Protein Negative Urine Glucose (UA) Normal Urine Ketones Negative Urine Occult Blood Negative Urine Nitrite Negative Urine Bilirubin Negative Urine Urobilinogen Normal Ur Leukocyte Esterase Negative Urine RBC 0 SEEN Urine WBC 0 SEEN Ur Squamous Epith Cells 0 SEEN Urine Bacteria 0 SEEN Urine Mucus 0 SEEN Urine Opiates Screen NEGATIVE Urine Methadone Screen NEGATIVE Ur Barbiturates Screen NEGATIVE Ur Phencyclidine Scrn NEGATIVE Ur Amphetamines Screen NEGATIVE MDMA (Ecstasy) Screen NEGATIVE U Benzodiazepines Scrn NEGATIVE Urine Cocaine Screen NEGATIVE U Cannabinoids Screen POSITIVE H Ur Drug Screen Comment Ethyl Alcohol 12/03/22 12/03/22 12:15 12:15 WBC RBC Hgb Hct MCV MCH MCHC RDW Std Deviation RDW Coeff of Pete Plt Count MPV Immature Gran % (Auto) Neut % (Auto) Lymph % (Auto) [place] % (Auto) Eos % (Auto) Baso % (Auto) Absolute Neuts (auto) Absolute Lymphs (auto) Nucleated RBC % Differential Comment Anisocytosis Sodium 141 Potassium 3.7 Chloride 108 H Carbon Dioxide 26.0 Anion Gap 7 BUN 18 Creatinine 0.84 Estim Creat Clear Calc 63.29 Est GFR (MDRD) Af Amer 89 Est GFR (MDRD) Non-Af 73 BUN/Creatinine Ratio 21.5 H Glucose 144 H Calcium 9.0 Total Bilirubin 0.50 AST 21 ALT 19 Alkaline Phosphatase 37 L Total Protein 7.3 Albumin 3.7 Globulin 3.6 Albumin/Globulin Ratio 1.0 Urine Color Urine Clarity Urine pH Ur Specific [place] Urine Protein Urine Glucose (UA) Urine Ketones Urine Occult Blood Urine Nitrite Urine Bilirubin Urine Urobilinogen Ur Leukocyte Esterase Urine RBC Urine WBC Ur Squamous Epith Cells Urine Bacteria Urine Mucus Urine Opiates Screen Urine Methadone Screen Ur Barbiturates Screen Ur Phencyclidine Scrn Ur Amphetamines Screen MDMA (Ecstasy) Screen U Benzodiazepines Scrn Urine Cocaine Screen U Cannabinoids Screen Ur Drug Screen Comment Ethyl Alcohol < 3.0 EKG Initial EKG: Attestation: I personally reviewed and interpreted this EKG as follows: Comments: Sinus rhythm with a rate of 65 bpm with no acute ST segment changes Discharge Plan Triage Chief Complaint: Suicidal ED Provider: Brian Stauffer Dx/Rx/DC Orders Clinical Impression: Depression, Suicidal ideation Prescriptions: No Action prednisone 5 mg Tablet 5 mg PO 0900 clopidogrel [Plavix] 75 mg Tablet 75 mg PO 0900 acetaminophen [Arthritis Pain Reliever] 650 mg Tablet Extended Release 1,300 mg PO Q8H famotidine [Pepcid] 20 mg Tablet 20 mg PO 0900 amlodipine 10 mg Tablet 10 mg PO 0900 ezetimibe [Zetia] 10 mg Tablet 10 mg PO 0900 atorvastatin [Lipitor] 80 mg Tablet 80 mg PO 2100 mycophenolate mofetil [CellCept] 250 mg Capsule 500 mg PO 0900,2100 omeprazole 40 mg Capsule,Delayed Release(Dr/Ec) 80 mg PO 0900 cyclosporine 25 mg Capsule 75 mg PO 0900,2099 levothyroxine 88 mcg Tablet 88 mcg PO 0700 montelukast [Singulair] 10 mg Tablet 10 mg PO 2100 hydrochlorothiazide 25 mg Tablet 25 mg PO 0900 estradiol [Estrace] 0.01 % (0.1 mg/gram) Cream 1 g VAGINAL MOFR albuterol sulfate [Proventil HFA] 90 mcg/actuation Hfa Aerosol Inhaler 2 puff INHALATION Q4H PRN (Reason: Shortness Of Breath) fenofibrate nanocrystallized [Tricor] 48 mg Tablet 48 mg PO 0900 aspirin 81 mg tablet,chewable 81 mg PO DAILY Qty: 30 0RF Vraylar 1.5 mg capsule 1.5 mg PO DAILY Qty: 30 0RF carvedilol 12.5 mg tablet 12.5 mg PO BID clonazepam 0.5 mg tablet 0.25 mg PO DAILY PRN PRN (Reason: Anxiety) potassium chloride 10 mEq tablet extended release 10 meq PO DAILY isosorbide mononitrate 60 mg tablet extended release 24 hr 60 mg PO DAILY Primary Care Provider: Hiram Frias Referrals: Rachid Tsang MD [Non-Staff] - Disposition Disposition: Psychiatric Hospital or Unit
[2022-12-03 11:57] LABS: Bacteria 0 SEEN /hpf (None Seen); Mucous, Urine 0 SEEN /hpf (<or=2+); Red Blood Cells-Urine 0 SEEN /hpf (0-5); Squamous Epithelial Cells - UA 0 SEEN /hpf (5-10); White Blood Cells 0 SEEN /hpf (0-5)
[2022-12-03 12:05] LABS: Color, Urine Yellow (Yellow); Glucose, Dipstick Normal (Normal); Ketone-Dipstick Negative (Negative); Leukocyte Esterase-Dipstick Negative /ul (Negative); Nitrite-Dipstick Negative (Negative); Occult Blood-Urine Negative /ul (Negative); Protein-Dipstick Negative (Negative); Urine Bilirubin Dipstick Negative (Negative); Urine Clarity Clear (Clear); Urine Urobilinogen Normal (Normal)
[2022-12-03 12:14] LABS: Amphetamine Urine VISTA NEGATIVE (<1000 ng/mL); Barbiturate Urine VISTA NEGATIVE (< 200 ng/mL); Benzodiazepine Urine VISTA NEGATIVE (< 200 ng/mL); Cocaine Urine VISTA NEGATIVE (< 300 ng/mL); Ecstacy Urine VISTA NEGATIVE (< 500 ng/mL); Methadone Urine VISTA NEGATIVE (< 300 ng/mL); PCP Urine VISTA NEGATIVE (< 25 ng/mL); THC Urine VISTA POSITIVE (< 50 ng/mL); Vista UDS pH Range 7
[2022-12-03 12:32] LABS: Absolute Lymphocyte Count 0.75 X10^3/uL (0.83-4.51); Absolute Neutrophil Count 4.7 X10^3/uL (2.0-7.7); Basophil# 0.05 X10^3/uL; Basophil% 0.8 % (0-1); Eosinophil# 0.08 X10^3/uL; Eosinophils% 1.3 % (0-5); Hematocrit 37.4 % (37-47); Hemoglobin 12.2 g/dL (12.0-15.0); Lymphocyte # 0.75 X10^3/ul (0.83-4.51); Lymphocyte % 12.3 % (19-41); Mean Corp Hgb Conc 32.6 g/dL (32-36); Mean Corpuscular Hgb 27.2 pg (27.0-32.0); Mean Corpuscular Volume 83.3 fL (81-99); Mean Platelet Vol. 8.7 fl (6.2-12.0); Monocyte# 0.54 X10^3/uL; Monocyte% 8.8 % (0-10); NRBC Flagged by Analyzer 0 % (0-5); Neutrophil # 4.69 X10^3/uL (2.7-7.7); Neutrophil % 76.6 % (47-70); POSITIVE MORPHOLOGY YES; Platelet Count 261 K/mm3 (150-450); RBC Distribution Width CV 23.2 % (11.6-14.6); RBC Distribution Width SD 70.5 fl (35.1-43.9); Red Blood Count 4.49 M/mm3 (4.2-5.4); White Blood Count 6.1 K/mm3 (4.4-11.0)
[2022-12-03 12:39] LABS: Differential Indicated SCAN CRITERIA MET
[2022-12-03 12:48] LABS: AST(SGOT) 21 U/L (15-37); Alanine Aminotransfer ALT/SGPT 19 U/L (13-56); Albumin, Serum 3.7 g/dL (3.2-5.0); Alkaline Phosphatase 37 U/L (45-117); Anion Gap 7 (5-15); BUN 18 mg/dL (7-18); BUN/Creat Ratio 21.5 RATIO (10-20); Chloride 108 mmol/L (98-107); Creatinine, Serum 0.84 mg/dL (0.55-1.02); EST Glomerular Filtration Rate 73 mL/min (>60); Est Glom Filt Rate - Afr Amer 89 mL/min (>60); Estimated Creatinine Clearance 63.29 ml/min; Globulin 3.6 g/dL (2.2-4.2); Glucose 144 mg/dL (74-106); Potassium 3.7 mmol/L (3.5-5.1); Protein, Total 7.3 g/dL (6.4-8.2); Sodium Level 141 mmol/L (136-145)
[2022-12-03 12:57] LABS: Alcohol, Blood (Medical)-Serum < 3.0 mg/dL
[2022-12-03 13:06] LABS: Anisocytosis 2+; Differential Comment SCANNED
--- NOTE | 2022-12-03 13:06 | ED.RN ---
SITTER UP OUT OF ROOM. STATES PT TOLD HER NOT TO RETURN. THIS RN IN TO TALK TO PT. PT STATES I AM DONE WITH THAT PERSON, SHE TOLD ME I LOOK FINE AND HAVE NO REASON TO BE HERE. PT COOPERATIVE WITH THIS RN AND WILL ALLOW SITTER AT BEDSIDE WHILE ATTEMPT FOR ANOTHER SITTER OCCURS
--- NOTE | 2022-12-03 13:08 | ED.RN ---
PT REMAINS TEARFUL. STATES SHE FEELS JUDGED
--- NOTE | 2022-12-03 13:25 | CM.ED ---
Social Work SW met with patient and introduced herself and role as [facility] SW. Patient lying in bed, tearful and agreeable to speak with SW. SW provided an update regarding [facility] recommendation for placement. Patient reports understanding and voiced concerns regarding sitter, stating the sitter informed patient she looks fine and doesn't understand why she is in the hospital. SW provided emotional support and explained the sitter is hospital policy for safety, so SW will update care team to see what adjust if any can be made. SW updated care team of patient's report. car packerSELINA Thornton to address. SW contacted [facility] to inquire about bed availability, beds available. SW contacted [facility] and [facility] [place] [facility] to inquire about bed availability, no beds available. SW faxed chart to [facility] and will update regarding placement. Plan: referral sent to [facility], [facility]
--- NOTE | 2022-12-03 13:30 | ED.RN ---
PT IN ROOM. CONTINUES TO CRY. A NEW SITTER AT BEDSIDE
--- NOTE | 2022-12-03 13:52 | NURSING ---
FAXED PAPER FOR MEDICAL CLEARANCE. PART OF DR LINDA
[2022-12-03] MEDS: Acetaminophen 325 MG Tablet 650 MG PO (16:00)
[2022-12-03 16:09] VITALS: BP 148/70; PULSE 68; RESP 16; TEMP 36.8; O2SAT 96
--- NOTE | 2022-12-03 16:13 | CM.ED ---
Addendum entered by Kait Herrera 12/03/22 16:37: BRIAN contacted by [facility] staff and informed a bed is available, patient is accepted by [facility], room 100 bed 2, [id number] or [phone]. SW updated care team of acceptance, community development technician to arrange transportation. SW canceled referrals with [facility]. SW updated [facility] of accepting. SW updated patient regarding acceptance to [facility]. Patient voiced concerns regarding location, SW validated concerns but informed patient she has transportation benefit with her insurance so [facility] should assist with discharge planning. Plan: [facility] for [facility] placement [facility] Original Note: Social Work [facility] accepted patient, however, state a bed will not be available until tomorrow afternoon. BRIAN contacted [facility] to inquire about bed availability, staff report a bed might be available tonight but for sure tomorrow. BRIAN contacted [facility], verbal referral completed, staff requesting chest xray be completed. BRIAN faxed referrals to [facility] and [facility]. Care team updated regarding referrals. Pay to order chest xray. Plan: referrals pending as [facility]
[2022-12-03] MEDS: clonazePAM 0.5 MG Tablet 0.25 MG PO (16:14)
--- NOTE | 2022-12-03 16:20 | RAD_ITS ---
INDICATION: psych clearance EXAMINATION/TECHNIQUE: X-RAY - XR Chest 2 Views COMPARISON: 10/17/2022 FINDINGS: LINES/DEVICES: None. LUNGS: No consolidation, edema or effusion. No pneumothorax. MEDIASTINUM AND CARDIOVASCULAR STRUCTURES: Cardiac silhouette not enlarged. Central airways and mediastinal contour are unremarkable. BONES AND SOFT TISSUES: No acute changes. RAD/Chest PA and Lateral IMPRESSION: No radiographic evidence of acute cardiopulmonary disease. Electronically Signed: Jj Chandra MD at 16:51 EDT ,
--- NOTE | 2022-12-03 16:35 | NURSING ---
CALLED [facility], ETA IS 90 MIN
== END 2022-12-03 17:46 ==
PROVIDERS: Emergency Provider Emergency Medicine; PCP Family Medicine; Visit Provider Emergency Medicine
DX: R45.851 Suicidal ideations (principal); J44.9 Chronic obstructive pulmonary disease, unspecified; E78.00 Pure hypercholesterolemia, unspecified; F32.A Depression, unspecified; I10 Essential (primary) hypertension; Z79.899 Other long term (current) drug therapy; Z79.01 Long term (current) use of anticoagulants; Z94.0 Kidney transplant status; Z79.818 Long term (current) use of other agents affecting estrogen receptors and estrogen levels; K21.9 Gastro-esophageal reflux disease without esophagitis; E03.9 Hypothyroidism, unspecified; Z79.82 Long term (current) use of aspirin
CPT/HCPCS: 71046; 80053; 80307; 81001; 82077; 85025; 87811; 93005; 99284

== ENCOUNTER → 2023-01-13 | Outpatient (CLI) | payer MEDICARE, MEDICAID, SELFPAY ==
--- NOTE | 2023-01-13 11:29 | RAD_ITS ---
INDICATION: right shoulder pain EXAMINATION/TECHNIQUE: X-RAY - RIGHT XR Shoulder Min 2 Views 4 VIEWS COMPARISON: No prior comparison study available. FINDINGS: SOFT TISSUES: No soft tissue swelling or gas. No radiopaque foreign body. BONES/JOINTS: No acute fracture or malalignment. Moderate AC joint arthrosis. No degenerative changes glenohumeral joint. Visualized thorax is clear. No sclerotic or destructive changes observed. RAD/Shoulder min 2 Views IMPRESSION: Moderate AC joint arthrosis. Electronically Signed: Sharan Bear DO at 23:20 EDT ,
--- NOTE | 2023-01-13 11:29 | RAD_ITS ---
INDICATION: Chronic ankle pain EXAMINATION/TECHNIQUE: X-RAY - LEFT XR Foot Min 3 Views 3 VIEWS COMPARISON: None. FINDINGS: SOFT TISSUES: No soft tissue swelling or gas. No radiopaque foreign body. BONES/JOINTS: No acute fracture or malalignment. There are some mild degenerative morphologic changes involving the sesamoid bones. No other degenerative joint changes. No sclerotic or destructive changes observed. RAD/Foot min 3 Views IMPRESSION: No acute injury. Consider ankle x-rays for further evaluation. Minimal degenerative changes involving the first metatarsal head sesamoid articulations. Electronically Signed: Sharan Bear DO at 23:13 EDT ,
--- NOTE | 2023-01-13 11:30 | RAD_ITS ---
INDICATION: Chronic low back pain EXAMINATION/TECHNIQUE: X-RAY - XR Spine Lumbar Comp W/ Bending Min 6 Views COMPARISON: No relevant prior comparison study available FINDINGS: AP view shows a mild lateral curvature lumbar spine, convex left, centered at L3. There is mild rotatory component. Lateral neutral and extension views show no abnormal motion or anterolisthesis. There is a mildly exaggerated lordotic curvature. Oblique views show no pars defect. There is no vertebral body fracture or focal osseous lesion. Mild intervertebral disc height loss and degenerative endplate changes L4-5 and L3-4 levels. Intervertebral disc height loss and degenerative endplate changes lower thoracic spine, most notably at T11-T12. Abdominal aortic intimal calcifications are present. Surgical clips seen in the right hemipelvis. Visualized lung bases are clear. Abdominal soft tissues are within normal limits. Oval-shaped hyperdensity left lower abdomen likely enteric pill within the bowel. RAD/L/S Spine w Bend Min 6 Vw IMPRESSION: Lateral curvature convex left mid lumbar spine. Mildly exaggerated lordotic curvature with no anterior or retrolisthesis. No fracture or focal osseous lesion. Mild degenerative endplate changes distal thoracic greater than distal lumbar spine. Electronically Signed: Sharan Bear DO at 23:19 EDT ,
== END | disposition home or self-care (01) ==
PROVIDERS: PCP Family Medicine; Referring Provider Family Medicine; Visit Provider Family Medicine
DX: M54.9 Dorsalgia, unspecified (principal); M79.672 Pain in left foot; M25.511 Pain in right shoulder
CPT/HCPCS: 72114; 73030; 73630

== ENCOUNTER → 2023-01-23 | Outpatient (CLI) | payer MEDICARE, MEDICAID, SELFPAY ==
--- NOTE | 2023-01-23 11:00 | BD_ITS ---
STUDY: DUAL ENERGY X-RAY ABSORPTIOMETRY / DXA REASON FOR EXAM: Female, 62 years old. M810 TECHNIQUE: Bone Mineral Density (BMD) measurements of lumbar spine and left hip were obtained. COMPARISON: None. FINDINGS: Lumbar Spine (L1-L4): g/cm2 (1.016) / T-score (-0.3) / Z-score (1.3) Findings are suggestive of normal bone density with a low fracture risk. Left Femur Total: g/cm2 (0.773) / T-score (-1.4) / Z-score (-0.3) Left Femoral Neck: g/cm2 (0.724) / T-score (-1.1) / Z-score (0.2) BD/Dexa Bone Density Study IMPRESSION: The patient is considered osteopenic as outlined below according to World Chandler Organization (WHO) criteria with a low fracture risk. Reference Information: The T-score is the number of standard deviations above or below the standard which is normal for young adults at their peak bone mineral density. The World Health Organization (WHO) interprets the T-scores as follows: Above -1 Normal bone density Between -1 and -2.5 Osteopenia Equal to / or below -2.5 Osteoporosis As a practical clinical guideline, osteopenia may be graded as follows: Mild -1 through -1.5 Moderate -1.6 through -2.0 Severe -2.1 through -2.4 The Z-score is the number of standard deviations above or below age-matched controls. A Z-score of less than -1.5 would be considered abnormal. References: 1. NIH Osteoporosis and Related Bone Diseases www osteo.org 2. International Society for Clinical Densitometry www iscd.org 3. National Osteoporosis Foundation www nof.org Electronically Signed: Michael Tidwell MD at 10:31 EDT ,
== END | disposition home or self-care (01) ==
LOC: OPBD 10:39
PROVIDERS: PCP Family Medicine; Referring Provider Family Medicine; Visit Provider Family Medicine
DX: Z13.820 Encounter for screening for osteoporosis (principal); M81.0 Age-related osteoporosis without current pathological fracture
CPT/HCPCS: 77080

== ENCOUNTER → 2023-02-26 | Outpatient (CLI) | payer MEDICARE, MEDICAID, SELFPAY ==
--- NOTE | 2023-02-26 10:00 | MRI_ITS ---
STUDY: MRI LUMBAR SPINE WITHOUT CONTRAST REASON FOR EXAM: Female, 62 years old. Pain TECHNIQUE: Standardized fat and water weighted pulse sequences were obtained in the sagittal and axial planes. Noncontrast images obtained. Contrast: No contrast administered COMPARISON: None FINDINGS: Vertebral bodies and alignment. 1. Vertebral body height is maintained, no evidence of marrow edema or occult fracture. No destructive marrow replacement processes. 2. There is a mild grade 1 anterolisthesis of L4 on L5. No pars defects noted.. 3. Paraspinous soft tissue planes have normal appearance. Normal appearance of the muscular fascial planes of the erector spinae. 4. Normal appearance of the sacrum and sacroiliac joints. 5. Incidental note of bilateral renal atrophy. Intervertebral disks levels. T12-L1: Normal endplates. Normal disc height, hydration and morphology. Normal bilateral facet joints. Normal central canal and bilateral lateral recesses. Normal bilateral intervertebral neural foramina. L1-2: Disc desiccation, broad-based posterior disc bulge without canal stenosis however there is a LEFT lateral bulge and circumferential annular tear. Mild crowding of nerve roots LEFT lateral recess, there is mild foraminal narrowing without evidence of nerve root impingement. L2-3: Disc desiccation, broad-based disc bulge present, there is however a LEFT lateral bulge and circumferential annular tear. Mild narrowing of the LEFT lateral recess and mild crowding of nerve roots. No evidence riri nerve root impingement. Moderate facet hypertrophic changes noted. L3-4: Disc desiccation, broad-based posterior disc bulge/borderline protrusion, there is deformity the anterior epidural space, central canal is maintained at approximately 9 mm. There however bilateral foraminal components to the protrusions which result in foraminal narrowing and contact with the emerging L3 nerve roots. Facet hypertrophic changes bilaterally which further contributes to foraminal narrowing. L4-5: Disc desiccation, grade 1 anterolisthesis, unroofed disc material a broad-based disc bulge and annular tear noted. There is deformity of the anterior epidural space contributed by disc bulge and anterolisthesis facet and ligament flavum hypertrophic changes with AP dimension of thecal sac at 5 mm. Compression of nerve roots in the lateral recesses bilaterally. Neural foramina appear widely patent. L5-S1: Central disc bulge/borderline protrusion deformity the anterior epidural space at, mild contact with the S1 nerve root sleeves without evidence riri nerve root impingement. Neural foramina are widely patent. Facet hypertrophic changes are present. Spinal cord: Normal appearance of the spinal cord and conus. Conus is located at L1. Cauda equina has normal appearance. No evidence of cord compression or edema. No intramedullary signal abnormality noted. MRI/Spine Lumbar (Routine) IMPRESSION: 1. Degenerative grade 1 anterolisthesis of L4 and L5. Facet and ligamentum flavum hypertrophic changes are present, broad-based disc bulge also noted deforming the anterior epidural space, resultant stenosis of the thecal sac and compression of nerve roots lateral recesses. 2. Central disc bulge/protrusion at L5-S1 with contact with the S1 nerve roots without nerve root impingement. 3. Broad-based disc protrusion with foraminal prominence at the L3-4 level, no canal stenosis however narrowing of the neural foramina with contact with the emerging L3 nerve roots. 4. LEFT lateral disc bulge/borderline protrusion at L2-3 there is crowding of nerve roots LEFT lateral recess I, no riri nerve root impingement. 5. Normal appearance of visualized spinal cord and conus. Electronically Signed: Amado Peralta MD at 23:41 EDT ,
== END | disposition home or self-care (01) ==
LOC: MRI 09:27
PROVIDERS: PCP Family Medicine; Referring Provider Orthopaedic Surgery; Visit Provider Orthopaedic Surgery
DX: M43.10 Spondylolisthesis, site unspecified (principal)
CPT/HCPCS: 72148

== ENCOUNTER → 2023-03-07 | Outpatient (CLI) | payer MEDICARE, MEDICAID, SELFPAY ==
[2023-03-07 13:23] LABS: Thyroid Stim Hormone (TSH) 0.43 uIU/mL (0.358-3.74)
== END | disposition home or self-care (01) ==
LOC: MTLAB 10:40
PROVIDERS: PCP Family Medicine; Referring Provider Family Medicine; Visit Provider Family Medicine
DX: E03.9 Hypothyroidism, unspecified (principal)
CPT/HCPCS: 36415; 84443

== ENCOUNTER 2023-07-06 16:05 | Emergency (ER) | payer MEDICARE, MEDICAID, SELFPAY ==
[2023-07-06 16:06] VITALS: BP 123/59; PULSE 56; RESP 16; TEMP 35.2; O2SAT 97; BMI 26.7
--- NOTE | 2023-07-06 16:27 | EKG12_ITS ---
Test Reason : FALL Blood Pressure : / mmHG Vent. Rate : 056 BPM Atrial Rate : 056 BPM P-R Int : 186 ms QRS Dur : 092 ms QT Int : 458 ms P-R-T Axes : 070 044 038 degrees QTc Int : 441 ms Sinus bradycardia Otherwise normal ECG Confirmed by HUNTER HOPKINS, GUERITA ([id number]), editor house organ JOSE ROBERTO ESPINOZA ([id number]) on 07/08/2023 8:35:14 AM Referred By: Confirmed By:GUERITA HARRISON MD
--- NOTE | 2023-07-06 16:28 | CT_ITS ---
INDICATION: cervicalgia EXAMINATION: CT CERVICAL SPINE - CT Spine Cervical W/O Contrast Injection TECHNIQUE: Helically acquired images were obtained of the cervical spine. 2D reformatted images were reviewed. A radiation dose optimization technique was used for this scan. IV Contrast dosage and agent: None. COMPARISON: None. FINDINGS: VERTEBRAE: No fracture or traumatic subluxation. No discrete lytic or blastic abnormality. Normal alignment. Normal craniocervical junction and cervicothoracic junction. DISCS and SPINAL CANAL: Moderate to severe multilevel degenerative disc disease and spondylosis. No critical stenosis. NECK SOFT TISSUES: No prevertebral soft tissue swelling. There is no cervical adenopathy. LUNG APICES: Clear. CT/Spine Cervical without Contras IMPRESSION: No evidence of acute cervical spinal fracture or spondylolisthesis. Moderate to severe multilevel degenerative disc disease and spondylosis. Electronically Signed: Ashok So MD at 18:24 EST ,
--- NOTE | 2023-07-06 16:28 | CT_ITS ---
EXAMINATION : Head CT w/out contrast HISTORY : head injury COMPARISON : None. TECHNIQUE : Multiple contiguous axial images were obtained from the skull base to the vertex without intravenous contrast. A radiation dose optimization technique was used for this scan. FINDINGS : The ventricles and sulci are normal in size. There is no evidence for acute intracranial hemorrhage, mass effect, or midline shift. There is no extra-axial fluid collection. There is normal valdez-white differentiation, without CT evidence of acute ischemia or infarct. The skull base and calvarium are unremarkable. The orbits are unremarkable. The paranasal sinuses are clear. The mastoid air cells are well-aerated. Moderately sized right occipital scalp hematoma. CT/Brain/Head without Contrast IMPRESSION: Moderately sized right occipital scalp hematoma. No fracture or intracranial hemorrhage. Electronically Signed: Ashok So MD at 17:16 EST ,
[2023-07-06] MEDS: 0.9% Normal Saline (1000mL) 1,000 ML 999 ML IV (16:49)
[2023-07-06 16:55] LABS: Absolute Lymphocyte Count 0.69 X10^3/uL (0.83-4.51); Absolute Neutrophil Count 8.9 X10^3/uL (2.0-7.7); Basophil# 0.04 X10^3/uL; Basophil% 0.4 % (0-1); Eosinophil# 0.01 X10^3/uL; Eosinophils% 0.1 % (0-5); Hematocrit 39.5 % (37-47); Lymphocyte # 0.69 X10^3/ul (0.83-4.51); Lymphocyte % 6.7 % (19-41); Mean Corp Hgb Conc 32.9 g/dL (32-36); Mean Platelet Vol. 8.6 fl (6.2-12.0); Monocyte# 0.63 X10^3/uL; Monocyte% 6.1 % (0-10); NRBC Flagged by Analyzer 0 % (0-5); Neutrophil # 8.87 X10^3/uL (2.7-7.7); Neutrophil % 86.3 % (47-70); Platelet Count 197 K/mm3 (150-450); RBC Distribution Width CV 14.1 % (11.6-14.6); RBC Distribution Width SD 47.5 fl (35.1-43.9); Red Blood Count 4.34 M/mm3 (4.2-5.4); White Blood Count 10.3 K/mm3 (4.4-11.0)
--- NOTE | 2023-07-06 17:00 | EX.ED.GENINJ ---
HPI <TREE Mustafa - Last Filed: 07/06/23 20:46> History of Present Illness Chief Complaint: Fall Narrative Narrative: Patient presenting today due to a fall that occurred this afternoon. She reports that she was walking into her kitchen to get something to eat when she began to feel like she could pass out and then next thing she knew, she was waking up on the floor. She did hit the back of her head and is now experiencing head pain. She is on aspirin and Plavix due to carotid artery stenosis. She reports that she has pain and swelling to her left fourth and fifth fingers as well. She reports that over the past 3 days she has felt weak and has had nasal congestion, sore throat, and a cough. She has been sick with URI like symptoms over the past 5 weeks on and off. About a week and a half ago her PCP gave her prescription for doxycycline and nasal spray which did seem to help somewhat. She also reports noticing dysuria this morning. [facility] <TREE Mustafa - Last Filed: 07/06/23 20:46> [facility] Medical History Bipolar disorder, unspecified Cancer of tonsil Carotid arterial disease Chest pain COPD (chronic obstructive pulmonary disease) Generalized anxiety disorder GERD (gastroesophageal reflux disease) Hepatitis High cholesterol History of chemotherapy HTN (hypertension) Hx of radiation therapy Hypothyroid Irregular heart beat Kidney disease Kidney failure Renal vein stenosis of kidney transplant Unstable angina Home Medications albuterol sulfate 90 mcg/actuation aerosol inhaler (Proventil HFA) 2 puff inhalation Q4H PRN Shortness Of Breath 06/27/22 [History Last Taken 06/26/22] amlodipine 10 mg tablet 10 mg PO 0900 BLOOD PRESSURE 06/27/22 [History Last Taken 06/27/22 09:00] clopidogrel 75 mg tablet (Plavix) 75 mg PO 0900 BLOOD THINNER 06/27/22 [History Last Taken 06/27/22 09:00] cyclosporine 25 mg capsule 75 mg PO 0900,2100 06/27/22 [History Last Taken 06/27/22 09:00] ezetimibe 10 mg tablet (Zetia) 10 mg PO 0900 CHOLESTEROL 06/27/22 [History Last Taken 06/27/22 09:00] famotidine 20 mg tablet (Pepcid) 20 mg PO 0900 GERD 06/27/22 [History Last Taken 06/27/22 09:00] fenofibrate nanocrystallized 48 mg tablet (Tricor) 48 mg PO 0900 CHOLESTEROL 06/27/22 [History Last Taken 06/27/22 09:00] levothyroxine 88 mcg tablet 88 mcg PO 0700 THYROID 06/27/22 [History Last Taken 06/27/22 07:00] montelukast 10 mg tablet (Singulair) 10 mg PO 2100 ALLERGIES 06/27/22 [History Last Taken 06/26/22 21:00] mycophenolate mofetil 250 mg capsule (CellCept) 500 mg PO 0900,2100 06/27/22 [History Last Taken 06/27/22 09:00] omeprazole 40 mg capsule,delayed release 80 mg PO 0900 GERD 06/27/22 [History Last Taken 06/27/22 09:00] prednisone 5 mg tablet 5 mg PO 0900 06/27/22 [History Last Taken 06/27/22 09:00] aspirin 81 mg chewable tablet 81 mg PO DAILY #30 tabs 06/29/22 [Rx Last Taken Unknown] carvedilol 12.5 mg tablet 12.5 mg PO BID 11/13/22 [History Last Taken Unknown] clonazepam 0.5 mg tablet 0.25 mg PO DAILY PRN PRN Anxiety 11/13/22 [History Last Taken Unknown] isosorbide mononitrate 60 mg tablet,extended release 24 hr 60 mg PO DAILY 11/13/22 [History Last Taken Unknown] acetaminophen 650 mg tablet,extended release (Arthritis Pain Reliever) 1,300 mg PO Q8H PRN PAAIN 02/20/23 [History Last Taken Unknown] adapalene 0.1 % topical cream (Differin) 1 applic topical QHS 02/20/23 [History Last Taken Unknown] alendronate 70 mg tablet 70 mg PO QWEEK 02/20/23 [History Last Taken Unknown] fluticasone propionate 50 mcg/actuation nasal spray,suspension (Flonase Allergy Relief) 1 spray intranasal DAILY 02/20/23 [History Last Taken Unknown] pilocarpine HCl 5 mg tablet mg PO 02/20/23 [History Last Taken Unknown] potassium chloride 10 mEq tablet,extended release meq PO 02/20/23 [History Last Taken Unknown] propylene glycol 0.6 % eye drops (Systane Balance) 1 drp ophthalmic (eye) DAILY PRN 02/20/23 [History Last Taken Unknown] spironolactone 25 mg tablet mg PO 02/20/23 [History Last Taken Unknown] trazodone 50 mg tablet mg PO 02/20/23 [History Last Taken Unknown] umeclidinium 62.5 mcg-vilanterol 25 mcg/actuation powdr for inhalation (Anoro Ellipta) inhalation 02/20/23 [History Last Taken Unknown] hydrocodone-acetaminophen 5-325mg 5mg-325mg 1 tab PO Q4H PRN PRN Pain 3 days #10 TABLETS 07/06/23 [Rx Last Taken Unknown] Allergy/AdvReac Type Severity Reaction Status Date / Time cyclobenzaprine Allergy Rash Verified 07/06/23 16:05 [From Flexeril] Opioids - Morphine Analogues Allergy Rash Verified 07/06/23 16:05 grapefruit AdvReac Other Verified 07/06/23 16:05 passion fruit AdvReac Other Verified 07/06/23 16:05 quetiapine [From Seroquel] AdvReac Other Verified 07/06/23 16:05 Family History Other Heart disease Surgical History History of carotid angioplasty Hx of right heart catheterization Hx of tubal ligation Kidney transplant recipient Social History Smoking Status: Light Smoker (<10/day) alcohol intake: never substance use type: does not use ROS <TREE Mustafa - Last Filed: 07/06/23 20:46> ROS ED Constitutional Constitutional ED: Denies chills or fever(s) Eyes Eyes: Denies change in vision ENT ENT ED: Reports rhinorrhea and sore throat Cardiovascular Cardiovascular: Denies chest pain or palpitations Respiratory/Chest Respiratory/Chest: Reports cough; Denies dyspnea or dyspnea on exertion Gastrointestinal Gastrointestinal: Denies abdominal pain, nausea or vomiting Genitourinary Genitourinary ED: Reports dysuria; Denies hematuria or urinary urgency Musculoskeletal Musculoskeletal: Reports arthralgias; Denies back pain or neck pain Integumentary Denies Abrasions Neurologic Neurologic: Reports headache(s) and weakness EXAM <TREE Mustafa Last Filed: 07/06/23 20:46> Physical Exam Const Vital Signs: 07/06/23 16:06 07/06/23 16:16 07/06/23 18:51 Temperature 95.3 F L Temperature Source Temporal Pulse Rate 56 L 64 Respiratory Rate 16 16 Respiratory Effort Normal Non-Labored Respiratory Depth Normal Respiratory Pattern Normal Blood Pressure 123/59 H 127/64 H Blood Pressure Mean 80 85 Pulse Ox 97 97 Oxygen Delivery Method Room Air Room Air Positive well nourished, well developed and no apparent distress General Appearance ED: well developed HEENT Reports normocephalic and head/scalp atraumatic HEENT Narrative: Hematoma to the occipital region of the scalp Mouth ED: Yes moist mucous membranes normal Eyes PERRL and EOMs intact bilaterally Neck full ROM and supple Chest Wall inspection of chest normal Resp normal respiratory effort and clear to auscultation bilaterally Cardio regular rate and regular rhythm GI soft to palpation, non-tender, non-distended and no masses Back/Spine normal ROM and normal to inspection Extremity Extremity Narrative: Swelling and ecchymosis to the left fourth and fifth fingers. Left radial pulse 2+, good capillary refill, sensation intact. Neuro oriented x3, CN's II-XII intact bilaterally, moves all extremities, no focal motor deficits and no sensory deficits noted Sensorium / Orientation: awake and alert Psych mental status grossly normal and thought process normal Skin no rashes or lesions noted and no wounds <Dr. Mando Alvarado DO - Last Filed: 07/06/23 23:00> Physical Exam Const Vital Signs: 07/06/23 16:06 07/06/23 16:16 07/06/23 18:51 Temperature 95.3 F L Temperature Source Temporal Pulse Rate 56 L 64 Respiratory Rate 16 16 Respiratory Effort Normal Non-Labored Respiratory Depth Normal Respiratory Pattern Normal Blood Pressure 123/59 H 127/64 H Blood Pressure Mean 80 85 Pulse Ox 97 97 Oxygen Delivery Method Room Air Room Air PROC <TREE Mustafa Last Filed: 07/06/23 20:46> Procedures Upper Extremity Splints Upper Extremity Splint: Orthoglass and Ulnar gutter Location: Left MDM <TREE Mustafa Last Filed: 07/06/23 20:46> MDM MDM Narrative Medical decision making narrative: Patient presenting due to syncopal episode that occurred earlier today. She reports that she was having a bowel movement and then got up off the toilet and went into the kitchen to get something to eat when she passed out. She reports pain to the back of her head and to her left hand. CT of the head and neck were obtained to rule out intracranial bleed and cervical fracture and are negative. Left hand x-ray obtained to rule out fracture and patient does have mildly displaced fractures at the base of the fourth and fifth proximal phalanges. She is right-handed. Patient was placed in a ulnar gutter splint. Capillary refill is less than 3 seconds post splint. She has an orthopedist that she would like to follow-up with. She was given [place] here for pain and a prescription for home. She has been given RICE instructions. Labs were obtained and are all unremarkable aside from being hyponatremic at 130. She was given IV fluids. She reported that she thinks she felt weak because she is hungry, I did give her a sandwich and on reexamination she reports improvement of her symptoms and would like to go home. Chest x-ray is negative for acute cardiopulmonary abnormality. I encouraged her to follow-up with orthopedics and her PCP. She will be discharged home in stable condition and is comfortable with plan. Lab Data Attestation: I reviewed the patient's lab results. Lab results narrative: Sodium 130 Labs: Laboratory Results - last 24 hr 07/06/23 07/06/23 16:44 18:00 WBC 10.3 RBC 4.34 Hgb 13.0 Hct 39.5 MCV 91.0 MCH 30.0 MCHC 32.9 RDW Std Deviation 47.5 H RDW Coeff of Pete 14.1 Plt Count 197 MPV 8.6 Immature Gran % (Auto) 0.400 Neut % (Auto) 86.3 H Lymph % (Auto) 6.7 L [place] % (Auto) 6.1 Eos % (Auto) 0.1 Baso % (Auto) 0.4 Absolute Neuts (auto) 8.9 H Absolute Lymphs (auto) 0.69 L Nucleated RBC % 0 Sodium 130 L Potassium 4.0 Chloride 99 Carbon Dioxide 25.0 Anion Gap 6 BUN 14 Creatinine 0.87 Estim Creat Clear Calc 60.33 Est GFR (MDRD) Af Amer 85 Est GFR (MDRD) Non-Af 70 BUN/Creatinine Ratio 16.1 Glucose 134 H Calcium 9.5 Troponin I High Sens 8 Urine Color Yellow Urine Clarity Clear Urine pH 6.5 Ur Specific [place] 1.015 Urine Protein 30 H Urine Glucose (UA) Normal Urine Ketones Negative Urine Occult Blood Negative Urine Nitrite Negative Urine Bilirubin Negative Urine Urobilinogen 1 H Ur Leukocyte Esterase 100 H Urine RBC 0 SEEN Urine WBC 10-25 SEEN Ur Squamous Epith Cells 0 SEEN Urine Bacteria 0 SEEN Urine Mucus 0 SEEN Radiography Chest X-Ray - ED: Read by ED Physician and Read by Radiologist Diagnostic Testing: Clinical Impression(s) from Imaging Studies Brain CT 07/06/23 16:28 IMPRESSION: Moderately sized right occipital scalp hematoma. No fracture or intracranial hemorrhage. Electronically Signed: Ashok So MD at 17:16 EST Reading Location ID and State: [facility] / [place] Tel , Service support , Cervical Spine CT 07/06/23 16:28 IMPRESSION: No evidence of acute cervical spinal fracture or spondylolisthesis. Moderate to severe multilevel degenerative disc disease and spondylosis. Electronically Signed: Ashok So MD at 18:24 EST Reading Location ID and State: [facility] / [place] [facility] , Service support , Chest X-Ray 07/06/23 17:15 IMPRESSION: No acute radiographic abnormalities. Electronically Signed: Ashok So MD at 18:29 EST Reading Location ID and State: [facility] / [place] Tel , Service support , Hand X-Ray 07/06/23 17:15 IMPRESSION: Acute mildly displaced fractures of the bases of the fourth and fifth proximal phalanges. Electronically Signed: Ashok So MD at 18:29 EST Reading Location ID and State: [facility] / [place] Tel , Service support , EKG Initial EKG: Comments: 56 bpm, sinus bradycardia, no ST elevation, reviewed and interpreted by attending ED physician <Dr. Mando Alvarado, DO - Last Filed: 07/06/23 23:00> [facility] Narrative Medical decision making narrative: Patient presenting due to syncopal episode that occurred earlier today. She reports that she was having a bowel movement and then got up off the toilet and went into the kitchen to get something to eat when she passed out. She reports pain to the back of her head and to her left hand. CT of the head and neck were obtained to rule out intracranial bleed and cervical fracture and are negative. Left hand x-ray obtained to rule out fracture and patient does have mildly displaced fractures at the base of the fourth and fifth proximal phalanges. She is right-handed. Patient was placed in a ulnar gutter splint. Capillary refill is less than 3 seconds post splint. She has an orthopedist that she would like to follow-up with. She was given [place] here for pain and a prescription for home. She has been given RICE instructions. Labs were obtained and are all unremarkable aside from being hyponatremic at 130. She was given IV fluids. She reported that she thinks she felt weak because she is hungry, I did give her a sandwich and on reexamination she reports improvement of her symptoms and would like to go home. Chest x-ray is negative for acute cardiopulmonary abnormality. I encouraged her to follow-up with orthopedics and her PCP. She will be discharged home in stable condition and is comfortable with plan. I have personally performed a face to face assessment of the patient and have reviewed the KEVON Note. I performed a substantive portion of the visit including all aspects of the following. My simon findings include: History is patient has what sounds like a probable vagal syncopal episode at home. She struck the back of her head and has swelling. She injured her left fourth and fifth fingers. Exam is hematoma to the occiput. ANO x 3. Heart regular without murmur. Tenderness swelling ecchymosis over the fourth and fifth phalanx proximally. Medical Decison Making my independent or potation of the plain films of the hand is acute fractures of the fourth and fifth digit proximal phalanx. Placed in ulnar gutter splint. CT of the brain and cervical spine were negative for acute. Basic blood work was obtained and reviewed.EKG EKG is a normal sinus rhythm. My independent interpretation of the chest x-ray is no acute process. Follow-up with orthopedics and primary care Lab Data Labs: Laboratory Results - last 24 hr 07/06/23 07/06/23 16:44 18:00 WBC 10.3 RBC 4.34 Hgb 13.0 Hct 39.5 MCV 91.0 MCH 30.0 MCHC 32.9 RDW Std Deviation 47.5 H RDW Coeff of Pete 14.1 Plt Count 197 MPV 8.6 Immature Gran % (Auto) 0.400 Neut % (Auto) 86.3 H Lymph % (Auto) 6.7 L [place] % (Auto) 6.1 Eos % (Auto) 0.1 Baso % (Auto) 0.4 Absolute Neuts (auto) 8.9 H Absolute Lymphs (auto) 0.69 L Nucleated RBC % 0 Sodium 130 L Potassium 4.0 Chloride 99 Carbon Dioxide 25.0 Anion Gap 6 BUN 14 Creatinine 0.87 Estim Creat Clear Calc 60.33 Est GFR (MDRD) Af Amer 85 Est GFR (MDRD) Non-Af 70 BUN/Creatinine Ratio 16.1 Glucose 134 H Calcium 9.5 Troponin I High Sens 8 Urine Color Yellow Urine Clarity Clear Urine pH 6.5 Ur Specific [place] 1.015 Urine Protein 30 H Urine Glucose (UA) Normal Urine Ketones Negative Urine Occult Blood Negative Urine Nitrite Negative Urine Bilirubin Negative Urine Urobilinogen 1 H Ur Leukocyte Esterase 100 H Urine RBC 0 SEEN Urine WBC 10-25 SEEN Ur Squamous Epith Cells 0 SEEN Urine Bacteria 0 SEEN Urine Mucus 0 SEEN Radiography Diagnostic Testing: Clinical Impression(s) from Imaging Studies Brain CT 07/06/23 16:28 IMPRESSION: Moderately sized right occipital scalp hematoma. No fracture or intracranial hemorrhage. Electronically Signed: Ashok So MD at 17:16 EST , Cervical Spine CT 07/06/23 16:28 IMPRESSION: No evidence of acute cervical spinal fracture or spondylolisthesis. Moderate to severe multilevel degenerative disc disease and spondylosis. Electronically Signed: Ashok So MD at 18:24 EST , Chest X-Ray 07/06/23 17:15 IMPRESSION: No acute radiographic abnormalities. Electronically Signed: Ashok So MD at 18:29 EST , Hand X-Ray 07/06/23 17:15 IMPRESSION: Acute mildly displaced fractures of the bases of the fourth and fifth proximal phalanges. Electronically Signed: Ashok So MD at 18:29 EST , EKG Initial EKG: Attestation: I personally reviewed and interpreted this EKG as follows: Discharge Plan Triage Chief Complaint: Fall ED Midlevel Provider: Demi Painting ED Provider: Mando Alvarado Dx/Rx/DC Orders Clinical Impression: Syncope, Hematoma of scalp, Head injury, Hand fracture, left Instructions: ED Fracture, Upper Extremity, ED Head Injury (Adult), ED Fainting, Uncertain Cause Prescriptions: New hydrocodone-acetaminophen 5-325 mg tablet 1 tab PO Q4H PRN PRN (Reason: Pain) 3 Days Qty: 10 0RF No Action alendronate 70 mg tablet 70 mg PO QWEEK potassium chloride 10 mEq tablet extended release PO spironolactone 25 mg tablet PO pilocarpine HCl 5 mg tablet PO trazodone 50 mg tablet PO Systane Balance 0.6 % drops 1 drp ophthalmic (eye) DAILY PRN fluticasone propionate [Flonase Allergy Relief] 50 mcg/actuation spray,suspension 1 spray intranasal DAILY Rx Instructions: administer into each nostril Anoro Ellipta 62.5-25 mcg/actuation blister with device inhalation adapalene [Differin] 0.1 % cream 1 applic topical QHS prednisone 5 mg Tablet 5 mg PO 0900 clopidogrel [Plavix] 75 mg Tablet 75 mg PO 0900 famotidine [Pepcid] 20 mg Tablet 20 mg PO 0900 amlodipine 10 mg Tablet 10 mg PO 0900 ezetimibe [Zetia] 10 mg Tablet 10 mg PO 0900 mycophenolate mofetil [CellCept] 250 mg Capsule 500 mg PO 0900,2100 omeprazole 40 mg Capsule,Delayed Release(Dr/Ec) 80 mg PO 0900 cyclosporine 25 mg Capsule 75 mg PO 0900,2099 levothyroxine 88 mcg Tablet 88 mcg PO 0700 montelukast [Singulair] 10 mg Tablet 10 mg PO 2100 albuterol sulfate [Proventil HFA] 90 mcg/actuation Hfa Aerosol Inhaler 2 puff INHALATION Q4H PRN (Reason: Shortness Of Breath) fenofibrate nanocrystallized [Tricor] 48 mg Tablet 48 mg PO 0900 aspirin 81 mg tablet,chewable 81 mg PO DAILY Qty: 30 0RF acetaminophen [Arthritis Pain Reliever] 650 mg tablet extended release 1,300 mg PO Q8H PRN (Reason: PAAIN) carvedilol 12.5 mg tablet 12.5 mg PO BID clonazepam 0.5 mg tablet 0.25 mg PO DAILY PRN PRN (Reason: Anxiety) isosorbide mononitrate 60 mg tablet extended release 24 hr 60 mg PO DAILY Primary Care Provider: Hiram Frias Referrals: Hiram Frias MD [Primary Care Provider] - 3-5 Days Activity Restrictions/Additional Instructions: Follow-up with your orthopedic doctor regarding your hand fracture. Follow-up with your PCP and return for any worsening of your symptoms. Disposition Disposition: Home, Self Care Discharge Date/Time: 07/06/23 19:46
--- NOTE | 2023-07-06 17:15 | RAD_ITS ---
INDICATION: cough EXAMINATION/TECHNIQUE: X-RAY - XR Chest 2 Views COMPARISON: None. FINDINGS: The lungs are clear. Tortuous and calcified thoracic aorta. The heart is not enlarged. No pleural effusion or pneumothorax. No acute osseous abnormalities. RAD/Chest PA and Lateral IMPRESSION: No acute radiographic abnormalities. Electronically Signed: Ashok So MD at 18:29 EST ,
--- NOTE | 2023-07-06 17:15 | RAD_ITS ---
INDICATION: injury EXAMINATION/TECHNIQUE: X-RAY - LEFT XR Hand Min 3 Views COMPARISON: None. FINDINGS: Acute mildly displaced fractures of the bases of the fourth and fifth proximal phalanges. No blastic or lytic lesions. Scattered degenerative changes. Soft tissue swelling of the fourth and fifth digit. RAD/Hand Min 3 Views IMPRESSION: Acute mildly displaced fractures of the bases of the fourth and fifth proximal phalanges. Electronically Signed: Ashok So MD at 18:29 EST ,
[2023-07-06 17:16] LABS: Anion Gap 6 (5-15); BUN 14 mg/dL (7-18); BUN/Creat Ratio 16.1 RATIO (10-20); Calcium,Total 9.5 mg/dL (8.5-10.1); Chloride 99 mmol/L (98-107); Creatinine, Serum 0.87 mg/dL (0.55-1.02); EST Glomerular Filtration Rate 70 mL/min (>60); Est Glom Filt Rate - Afr Amer 85 mL/min (>60); Estimated Creatinine Clearance 60.33 ml/min; Glucose 134 mg/dL (74-106); Sodium Level 130 mmol/L (136-145); Troponin-I HS 8 pg/mL (3.0-54.0)
[2023-07-06 18:10] LABS: Bacteria 0 SEEN /hpf (None Seen); Mucous, Urine 0 SEEN /hpf (<or=2+); Red Blood Cells-Urine 0 SEEN /hpf (0-5); Squamous Epithelial Cells - UA 0 SEEN /hpf (5-10)
[2023-07-06 18:12] LABS: Color, Urine Yellow (Yellow); Glucose, Dipstick Normal (Normal); Ketone-Dipstick Negative (Negative); Leukocyte Esterase-Dipstick 100 /ul (Negative); Nitrite-Dipstick Negative (Negative); Occult Blood-Urine Negative /ul (Negative); Protein-Dipstick 30 mg/dl (Negative); Specific Gravity, Urine 1.015 (1.002-1.030); Urine Bilirubin Dipstick Negative (Negative); Urine Clarity Clear (Clear); Urine Urobilinogen 1 mg/dl (Normal); Urine pH 6.5 (5.0 - 8.0)
[2023-07-06 18:28] LABS: White Blood Cells 10-25 SEEN /hpf (0-5)
[2023-07-06] MEDS: HYDROcodone Bitartrate/Apap 5/325 Tablet PO (18:50)
[2023-07-06 18:51] VITALS: BP 127/64; PULSE 64; RESP 16; O2SAT 97
== END 2023-07-06 19:46 | disposition home or self-care (01) ==
PROVIDERS: Physician Assistant; Emergency Provider Emergency Medicine; PCP Family Medicine; Visit Provider Emergency Medicine
DX: S62.615A Displaced fracture of proximal phalanx of left ring finger, initial encounter for closed fracture (principal); J44.9 Chronic obstructive pulmonary disease, unspecified; F17.200 Nicotine dependence, unspecified, uncomplicated; S09.90XA Unspecified injury of head, initial encounter; S00.03XA Contusion of scalp, initial encounter; R55 Syncope and collapse; W18.39XA Other fall on same level, initial encounter; Y93.01 Activity, walking, marching and hiking; Y92.89 Other specified places as the place of occurrence of the external cause; Z79.82 Long term (current) use of aspirin; Z79.02 Long term (current) use of antithrombotics/antiplatelets; I65.29 Occlusion and stenosis of unspecified carotid artery; I10 Essential (primary) hypertension; Z85.89 Personal history of malignant neoplasm of other organs and systems; E78.00 Pure hypercholesterolemia, unspecified; Z92.21 Personal history of antineoplastic chemotherapy; Z79.899 Other long term (current) drug therapy; K21.9 Gastro-esophageal reflux disease without esophagitis; E03.9 Hypothyroidism, unspecified; F41.1 Generalized anxiety disorder; Z79.51 Long term (current) use of inhaled steroids; Z94.0 Kidney transplant status; S62.617A Displaced fracture of proximal phalanx of left little finger, initial encounter for closed fracture
CPT/HCPCS: 29125; 70450; 71046; 72125; 73130; 80048; 81001; 84484; 85025; 87428; 93005; 96360; 96361; 99283; J7030; A4216

== ENCOUNTER 2023-07-12 14:26 | Emergency (ER) | payer MEDICARE, MEDICAID, SELFPAY ==
[2023-07-12 14:31] VITALS: BP 118/68; PULSE 62; RESP 18; TEMP 36.2; O2SAT 96; BMI 25.8
--- NOTE | 2023-07-12 15:09 | EX.ED.UPPERE ---
HPI History of Present Illness Chief Complaint: Upper Extremity Injury Narrative Narrative: 63-year-old female presents with chief complaint of her finger swelling and her cast being too tight. She relates history that approximately 1 week ago she had a fall and broke the fourth and fifth digits on her left hand. She was seen in the emergency department and was placed in a splint. She [place] up with [place]opedic [place] [facility] who casted her, and put her in a cast with her fourth and fifth digits flexed because of where the break is. She states they are going to do surgery. She complains of her finger swelling and the cast being too tight. She states that she called, and was told to come to the local emergency department to have the cast removed . [facility] Medical History Bipolar disorder, unspecified Cancer of tonsil Carotid arterial disease Chest pain COPD (chronic obstructive pulmonary disease) Generalized anxiety disorder GERD (gastroesophageal reflux disease) Hepatitis High cholesterol History of chemotherapy HTN (hypertension) Hx of radiation therapy Hypothyroid Irregular heart beat Kidney disease Kidney failure Renal vein stenosis of kidney transplant Unstable angina Home Medications albuterol sulfate 90 mcg/actuation aerosol inhaler (Proventil HFA) 2 puff inhalation Q4H PRN Shortness Of Breath 06/27/22 [History Last Taken 06/26/22] amlodipine 10 mg tablet 10 mg PO 0900 BLOOD PRESSURE 06/27/22 [History Last Taken 06/27/22 09:00] clopidogrel 75 mg tablet (Plavix) 75 mg PO 0900 BLOOD THINNER 06/27/22 [History Last Taken 06/27/22 09:00] cyclosporine 25 mg capsule 75 mg PO 0900,2100 06/27/22 [History Last Taken 06/27/22 09:00] ezetimibe 10 mg tablet (Zetia) 10 mg PO 0900 CHOLESTEROL 06/27/22 [History Last Taken 06/27/22 09:00] famotidine 20 mg tablet (Pepcid) 20 mg PO 0900 GERD 06/27/22 [History Last Taken 06/27/22 09:00] fenofibrate nanocrystallized 48 mg tablet (Tricor) 48 mg PO 0900 CHOLESTEROL 06/27/22 [History Last Taken 06/27/22 09:00] levothyroxine 88 mcg tablet 88 mcg PO 0700 THYROID 06/27/22 [History Last Taken 06/27/22 07:00] montelukast 10 mg tablet (Singulair) 10 mg PO 2100 ALLERGIES 06/27/22 [History Last Taken 06/26/22 21:00] mycophenolate mofetil 250 mg capsule (CellCept) 500 mg PO 0900,2100 06/27/22 [History Last Taken 06/27/22 09:00] omeprazole 40 mg capsule,delayed release 80 mg PO 0900 GERD 06/27/22 [History Last Taken 06/27/22 09:00] prednisone 5 mg tablet 5 mg PO 0900 06/27/22 [History Last Taken 06/27/22 09:00] aspirin 81 mg chewable tablet 81 mg PO DAILY #30 tabs 06/29/22 [Rx Last Taken Unknown] carvedilol 12.5 mg tablet 12.5 mg PO BID 11/13/22 [History Last Taken Unknown] clonazepam 0.5 mg tablet 0.25 mg PO DAILY PRN PRN Anxiety 11/13/22 [History Last Taken Unknown] isosorbide mononitrate 60 mg tablet,extended release 24 hr 60 mg PO DAILY 11/13/22 [History Last Taken Unknown] acetaminophen 650 mg tablet,extended release (Arthritis Pain Reliever) 1,300 mg PO Q8H PRN PAAIN 02/20/23 [History Last Taken Unknown] adapalene 0.1 % topical cream (Differin) 1 applic topical QHS 02/20/23 [History Last Taken Unknown] alendronate 70 mg tablet 70 mg PO QWEEK 02/20/23 [History Last Taken Unknown] fluticasone propionate 50 mcg/actuation nasal spray,suspension (Flonase Allergy Relief) 1 spray intranasal DAILY 02/20/23 [History Last Taken Unknown] pilocarpine HCl 5 mg tablet mg PO 02/20/23 [History Last Taken Unknown] potassium chloride 10 mEq tablet,extended release meq PO 02/20/23 [History Last Taken Unknown] propylene glycol 0.6 % eye drops (Systane Balance) 1 drp ophthalmic (eye) DAILY PRN 02/20/23 [History Last Taken Unknown] spironolactone 25 mg tablet mg PO 02/20/23 [History Last Taken Unknown] trazodone 50 mg tablet mg PO 02/20/23 [History Last Taken Unknown] umeclidinium 62.5 mcg-vilanterol 25 mcg/actuation powdr for inhalation (Anoro Ellipta) inhalation 02/20/23 [History Last Taken Unknown] hydrocodone-acetaminophen 5-325mg 5mg-325mg 1 tab PO Q4H PRN PRN Pain 3 days #10 TABLETS 07/06/23 [Rx Last Taken Unknown] Allergy/AdvReac Type Severity Reaction Status Date / Time cyclobenzaprine Allergy Rash Verified 07/12/23 14:31 [From Flexeril] Opioids - Morphine Analogues Allergy Rash Verified 07/12/23 14:31 grapefruit AdvReac Other Verified 07/12/23 14:31 passion fruit AdvReac Other Verified 07/12/23 14:31 quetiapine [From Seroquel] AdvReac Other Verified 07/12/23 14:31 Family History Other Heart disease Surgical History History of carotid angioplasty Hx of right heart catheterization Hx of tubal ligation Kidney transplant recipient Social History Smoking Status: Light Smoker (<10/day) alcohol intake: never substance use type: does not use ROS ROS ED ROS Narrative Constitutional: No fever, no chills. HEENT: No sore throat. No neck pain. No loss of vision. No rhinorrhea. Cardiovascular: No chest pain. No palpitations. No pedal edema. Respiratory: No cough, no shortness of breath. Abdominal: No abdominal pain. No nausea. No vomiting. Genitourinary: No dysuria. No hematuria. Musculoskeletal: No myalgias. Left hand pain with finger swelling. Neurologic: No headaches. No dizziness. No lightheadedness. Skin: No rash. No change in color. Psychiatric: No depression. No anxiety. EXAM Physical Exam Narrative Exam Narrative: Afebrile. Vital signs noted. HEENT: Normocephalic. Atraumatic. PERRL, EOMI. Neck soft and supple. No point tenderness or step off. Cardiovascular: Regular rate and rhythm. No murmurs, rubs, or gallops appreciated. Respiratory: No tachypnea. Lungs clear to auscultation bilaterally. Gastrointestinal: Abdomen soft, nontender, with normoactive bowel sounds. No rebound or guarding. Neurological: Awake. Alert. Nonfocal, nonlateralizing. Skin: No rash. Normal color. No pallor. Musculoskeletal: No pedal edema. Full range of motion extremities. Left upper extremity in cast with fourth and fifth fingers flexed at MCP joint. Positive swelling of third and fourth digits with ecchymosis. Const Vital Signs: 07/12/23 14:31 Temperature 97.1 F L Temperature Source Temporal Pulse Rate 62 Respiratory Rate 18 Blood Pressure 118/68 Blood Pressure Mean 84 Pulse Ox 96 Oxygen Delivery Method Room Air MDM MDM MDM Narrative Medical decision making narrative: And lengthy discussion with the patient. I discussed bivalving with her, and making it like a splint, but she wants the entire cast removed. She prefers to be in an AP splint. It was discussed that her orthopedic surgeon wanted her casted in this manner for reason to help with immobilization of where her fractures are. I reviewed the radiology films from previously and she does have fractures of the fourth and fifth digits in the base of the proximal phalanxes. She states they are going to surgery, and while I had discussed bivalving the cast again, because it would be very similar to an AP splint, she wants the entire cast removed. DWAYNE will remove the cast and splint the patient. Ortho-Glass ulnar gutter splint applied by DWAYNE. Upon repeat examination, she feels improved. She has good capillary refill. At this point in time, I feel she can be discharged to follow-up with her orthopedic surgeon. Continue ice and elevation of left hand when possible. She is to call on Friday as she may need to be recasted prior to her reported surgery date. Disposition is discharged home in stable condition. History & Record Review Discussion w/independent historian: Patient Additional record(s) reviewed:: Prior ED visit Discharge Plan Triage Chief Complaint: Upper Extremity Injury ED Provider: Gibran Graff Dx/Rx/DC Orders Clinical Impression: Cast discomfort, Encounter for cast removal, Hand fracture, left Instructions: ED Closed Hand Fracture (Adult) Prescriptions: No Action alendronate 70 mg tablet 70 mg PO QWEEK potassium chloride 10 mEq tablet extended release PO spironolactone 25 mg tablet PO pilocarpine HCl 5 mg tablet PO trazodone 50 mg tablet PO Systane Balance 0.6 % drops 1 drp ophthalmic (eye) DAILY PRN fluticasone propionate [Flonase Allergy Relief] 50 mcg/actuation spray,suspension 1 spray intranasal DAILY Rx Instructions: administer into each nostril Anoro Ellipta 62.5-25 mcg/actuation blister with device inhalation adapalene [Differin] 0.1 % cream 1 applic topical QHS prednisone 5 mg Tablet 5 mg PO 0900 clopidogrel [Plavix] 75 mg Tablet 75 mg PO 0900 famotidine [Pepcid] 20 mg Tablet 20 mg PO 0900 amlodipine 10 mg Tablet 10 mg PO 0900 ezetimibe [Zetia] 10 mg Tablet 10 mg PO 0900 mycophenolate mofetil [CellCept] 250 mg Capsule 500 mg PO 0900,2099 omeprazole 40 mg Capsule,Delayed Release(Dr/Ec) 80 mg PO 0900 cyclosporine 25 mg Capsule 75 mg PO 0900,2099 levothyroxine 88 mcg Tablet 88 mcg PO 0700 montelukast [Singulair] 10 mg Tablet 10 mg PO 2100 albuterol sulfate [Proventil HFA] 90 mcg/actuation Hfa Aerosol Inhaler 2 puff INHALATION Q4H PRN (Reason: Shortness Of Breath) fenofibrate nanocrystallized [Tricor] 48 mg Tablet 48 mg PO 0900 aspirin 81 mg tablet,chewable 81 mg PO DAILY Qty: 30 0RF acetaminophen [Arthritis Pain Reliever] 650 mg tablet extended release 1,300 mg PO Q8H PRN (Reason: PAAIN) carvedilol 12.5 mg tablet 12.5 mg PO BID clonazepam 0.5 mg tablet 0.25 mg PO DAILY PRN PRN (Reason: Anxiety) isosorbide mononitrate 60 mg tablet extended release 24 hr 60 mg PO DAILY hydrocodone-acetaminophen 5-325 mg tablet 1 tab PO Q4H PRN PRN (Reason: Pain) 3 Days Qty: 10 0RF Primary Care Provider: Hiram Frias Referrals: Hiram Frias MD [Primary Care Provider] - Activity Restrictions/Additional Instructions: Follow-up with your orthopedic surgeon as soon as possible. Do not remove splint. You may need to have your hand recasted before your surgery. Call their office on Friday. Continue elevation of your left hand when possible. Disposition Disposition: Home, Self Care
== END 2023-07-12 16:20 | disposition home or self-care (01) ==
PROVIDERS: Emergency Provider Emergency Medicine; PCP Family Medicine; Visit Provider Emergency Medicine
DX: S62.92XD Unspecified fracture of left hand, subsequent encounter for fracture with routine healing (principal); F17.200 Nicotine dependence, unspecified, uncomplicated; Z94.0 Kidney transplant status; W19.XXXA Unspecified fall, initial encounter
CPT/HCPCS: 29130; 99282

== ENCOUNTER 2023-07-19 10:19 | Outpatient (CLI) | payer MEDICAID, SELFPAY ==
[2023-07-23 19:09] LABS: Alternaria alternata <0.10 kU/L (Class 0); Aspergillus fumigatus <0.10 kU/L (Class 0); Bahia Grass <0.10 kU/L (Class 0); Beef <0.10 kU/L (Class 0); Bermuda Grass <0.10 kU/L (Class 0); Bluegrass, Kentucky <0.10 kU/L (Class 0); Cat Hair/Dander, Standard <0.10 kU/L (Class 0); Cedar, Mountain <0.10 kU/L (Class 0); Chocolate <0.10 kU/L (Class 0); Cladosporium herbarum <0.10 kU/L (Class 0); Cockroach, American <0.10 kU/L (Class 0); Codfish <0.10 kU/L (Class 0); Corn <0.10 kU/L (Class 0); D farinae Mite <0.10 kU/L (Class 0); D pteronyssinus <0.10 kU/L (Class 0); Dog Epithelia <0.10 kU/L (Class 0); Egg, Whole <0.10 kU/L (Class 0); Elm, American White <0.10 kU/L (Class 0); Hazelnut Tree <0.10 kU/L (Class 0); Hickory, White <0.10 kU/L (Class 0); Johnson Grass <0.10 kU/L (Class 0); Maple/Box Elder <0.10 kU/L (Class 0); Milk (Cow) 0.32 kU/L (Class I); Mucor racemosus <0.10 kU/L (Class 0); Mugwort <0.10 kU/L (Class 0); Mulberry, White <0.10 kU/L (Class 0); Mussels <0.10 kU/L (Class 0); Nettle <0.10 kU/L (Class 0); Oak, White <0.10 kU/L (Class 0); Peanut <0.10 kU/L (Class 0); Penicillium chrysogen <0.10 kU/L (Class 0); Pigweed, Rough <0.10 kU/L (Class 0); Plantain, English <0.10 kU/L (Class 0); Pork <0.10 kU/L (Class 0); Ragweed, Short/Common <0.10 kU/L (Class 0); Salmon <0.10 kU/L (Class 0); Sheep Sorrel(Dock) <0.10 kU/L (Class 0); Shrimp <0.10 kU/L (Class 0); Soybean <0.10 kU/L (Class 0); Stemphylium herbarum <0.10 kU/L (Class 0); Sweet Gum <0.10 kU/L (Class 0); Sycamore, American <0.10 kU/L (Class 0); Tuna <0.10 kU/L (Class 0); Wheat <0.10 kU/L (Class 0)
== END 2023-07-19 23:59 | disposition home or self-care (01) ==
PROVIDERS: PCP Family Medicine; Referring Provider Family Medicine; Visit Provider Family Medicine
DX: J32.9 Chronic sinusitis, unspecified (principal)
CPT/HCPCS: 36415; 86003; 86005

== ENCOUNTER 2024-03-03 15:17 | Outpatient (CLI) | payer MEDICAID, SELFPAY ==
[2024-03-13 11:09] LABS: Alternaria tenuis <0.10 kU/L (Class 0); Ash, White <0.10 kU/L (Class 0); Aspergillus fumigatus <0.10 kU/L (Class 0); Beef <0.10 kU/L (Class 0); Bermuda Grass <0.10 kU/L (Class 0); Birch <0.10 kU/L (Class 0); Black Walnut <0.10 kU/L (Class 0); Cat Hair / Dander,Stand <0.10 kU/L (Class 0); Cedar, Mountain <0.10 kU/L (Class 0); Chocolate <0.10 kU/L (Class 0); Cladosporium herbarum <0.10 kU/L (Class 0); Cockroach, American <0.10 kU/L (Class 0); Codfish <0.10 kU/L (Class 0); Corn <0.10 kU/L (Class 0); Cottonwood <0.10 kU/L (Class 0); D farinae Mite <0.10 kU/L (Class 0); D pteronyssinus <0.10 kU/L (Class 0); Dog Epithelia <0.10 kU/L (Class 0); Egg, Whole <0.10 kU/L (Class 0); Elm, American White <0.10 kU/L (Class 0); Immunoglobulin E 6 IU/mL (6-495); Maple/Box Elder <0.10 kU/L (Class 0); Milk (Cow) <0.10 kU/L (Class 0); Mouse Urine <0.10 kU/L (Class 0); Mulberry, White <0.10 kU/L (Class 0); Mussels <0.10 kU/L (Class 0); Oak, White <0.10 kU/L (Class 0); Peanut <0.10 kU/L (Class 0); Pecan <0.10 kU/L (Class 0); Penicillium Notatum <0.10 kU/L (Class 0); Pigweed, Rough <0.10 kU/L (Class 0); Pork <0.10 kU/L (Class 0); Ragweed, Short/Common <0.10 kU/L (Class 0); Russian Thistle <0.10 kU/L (Class 0); Salmon <0.10 kU/L (Class 0); Sheep Sorrel <0.10 kU/L (Class 0); Shrimp <0.10 kU/L (Class 0); Soybean <0.10 kU/L (Class 0); Sycamore, American <0.10 kU/L (Class 0); Timothy Grass <0.10 kU/L (Class 0); Tuna <0.10 kU/L (Class 0); Wheat <0.10 kU/L (Class 0)
== END 2024-03-03 23:59 | disposition home or self-care (01) ==
LOC: MFPLAB 15:22
PROVIDERS: PCP Family Medicine; Visit Provider Family Medicine
DX: Z91.09 Other allergy status, other than to drugs and biological substances (principal); Z91.011 Allergy to milk products
CPT/HCPCS: 36415; 82785; 86003; 86005

== ENCOUNTER 2024-03-21 11:56 | Emergency (ER) | payer MEDICARE, MEDICAID, SELFPAY ==
[2024-03-21] VITALS (11 sets, daily range): BP systolic 95–151; BP diastolic 47–81; PULSE 53–61; RESP 14–21; TEMP 36.3–36.4; O2SAT 96–98; BMI 25.0
[2024-03-21 12:32] LABS: Absolute Lymphocyte Count 0.69 X10^3/uL (0.83-4.51); Absolute Neutrophil Count 3.8 X10^3/uL (2.0-7.7); Basophil# 0.04 X10^3/uL; Basophil% 0.8 % (0-1); Eosinophil# 0.11 X10^3/uL; Eosinophils% 2.2 % (0-5); Hematocrit 37.6 % (37-47); Hemoglobin 11.9 g/dL (12.0-15.0); Lymphocyte # 0.69 X10^3/ul (0.83-4.51); Lymphocyte % 13.5 % (19-41); Mean Corp Hgb Conc 31.6 g/dL (32-36); Mean Corpuscular Hgb 27.5 pg (27.0-32.0); Mean Corpuscular Volume 86.8 fL (81-99); Mean Platelet Vol. 8.5 fl (6.2-12.0); Monocyte% 9.8 % (0-10); NRBC Flagged by Analyzer 0 % (0-5); Neutrophil # 3.75 X10^3/uL (2.7-7.7); Neutrophil % 73.5 % (47-70); Platelet Count 221 K/mm3 (150-450); RBC Distribution Width CV 16.5 % (11.6-14.6); RBC Distribution Width SD 52.3 fl (35.1-43.9); Red Blood Count 4.33 M/mm3 (4.2-5.4); White Blood Count 5.1 K/mm3 (4.4-11.0)
--- NOTE | 2024-03-21 12:34 | RAD_ITS ---
STUDY: X-RAY CHEST REASON FOR EXAM: Female, 63 years old. Altered mental status. Dizziness. TECHNIQUE: Frontal view of the chest COMPARISON: 07/06/2023 FINDINGS: The lungs are clear. There are no pleural effusions. There is no pneumothorax. The heart is normal in size. The visualized osseous structures are within normal limits. RAD/Chest 1 View (Portable) IMPRESSION: No acute thoracic pathology. Electronically Signed: Martínez Rocha MD at 13:15 EDT ,
[2024-03-21 12:44] LABS: International Normalized Ratio 1.1; Prothrombin Time (Protime)PT. 13.8 SECONDS (11.7-14.9)
[2024-03-21 12:45] LABS: Partial Thromboplast Time 24.4 Seconds (24.1-36.2)
[2024-03-21 12:54] LABS: Anion Gap 7 (5-15); BUN 18 mg/dL (7-18); BUN/Creat Ratio 17.1 RATIO (10-20); Calcium,Total 9.8 mg/dL (8.5-10.1); Chloride 101 mmol/L (98-107); Creatinine, Serum 1.05 mg/dL (0.55-1.02); EST Glomerular Filtration Rate 56 mL/min (>60); Est Glom Filt Rate - Afr Amer 68 mL/min (>60); Estimated Creatinine Clearance 49.99 ml/min; Glucose 136 mg/dL (74-106); Potassium 3.7 mmol/L (3.5-5.1); Sodium Level 134 mmol/L (136-145)
--- NOTE | 2024-03-21 14:07 | EX.ED.DYSGE1 ---
HPI History of Present Illness Chief Complaint: Dizziness Narrative Narrative: Chief complaint and HPI: Lightheaded. Patient is a 63-year-old female with history of CKD from previous chemotherapy now status post renal transplant on immunosuppression, COPD, HTN, history of tonsillar cancer presents for evaluation of an episode of lightheadedness. Patient states that she has been under a lot of stress lately due to a new position at work. She endorses decreased p.o. intake secondary to the stress. Patient states she was at [facility] today when she stood up, felt lightheaded, and sat back down. Symptoms improved with sitting. Her friend is in the room and states that the patient appeared pale and possibly clammy at the time of the event. Patient states her vitals were taken at restoration. Patient states she was told she had a low heart rate but does not know how low. She presented to the ED for evaluation. She denies any fever, chills, chest pain, shortness of breath, weakness, dysuria, nausea, vomiting, diarrhea, neurological deficits. Denies any bilateral lower extremity swelling or pain. Review of systems: See HPI Medications: As listed on the chart Allergies: As listed on the chart PFSH: Per chart Vital signs: As listed on the chart. Reviewed. Physical exam: Gen: A&O x3, NAD Head: Normocephalic, atraumatic Eyes: No sclera icterus, conjunctiva clear, PERRL, EOMI ENT: Mildly dry mucous membranes Neck: Trachea midline, No JVD CV: Bradycardic, regular rhythm, no murmurs, no peripheral edema Resp: Lungs CTA BL, no w/r/c GI: Abd soft, non-distended, non-tender, no r/r/g Musc: Full ROM, no deformity, strength plus 5 out of 5 in all extremities Skin: Warm, dry Neuro: Alert, oriented, grossly intact, sensation intact Psych: Cooperative, appropriate mood and affect EKG: Interpreted by me/EM physician: EKG shows sinus bradycardia with a heart rate of 56. She has nonspecific ST changes. No ST elevation. Diagnostic: Interpreted by me/EM physician: 1 view chest x-ray without pneumonia, effusion, pneumothorax [facility] Medical History Bipolar disorder, unspecified Cancer of tonsil Carotid arterial disease Chest pain COPD (chronic obstructive pulmonary disease) Generalized anxiety disorder GERD (gastroesophageal reflux disease) Hepatitis High cholesterol History of chemotherapy HTN (hypertension) Hx of radiation therapy Hypothyroid Irregular heart beat Kidney disease Kidney failure Renal vein stenosis of kidney transplant Unstable angina Home Medications ?Medication ?Instructions ?Recorded ?Last Taken ?Type albuterol sulfate 90 mcg/actuation 2 puff inhalation Q4H PRN 06/27/22 06/26/22 History aerosol inhaler (Proventil HFA) Shortness Of Breath amlodipine 10 mg tablet 10 mg PO 0900 BLOOD PRESSURE 06/27/22 06/27/22 09:00 History clopidogrel 75 mg tablet (Plavix) 75 mg PO 0900 BLOOD THINNER 06/27/22 06/27/22 09:00 History cyclosporine 25 mg capsule 75 mg PO 0900,209906/27/22 06/27/22 09:00 History ezetimibe 10 mg tablet (Zetia) 10 mg PO 0900 CHOLESTEROL 06/27/22 06/27/22 09:00 History famotidine 20 mg tablet (Pepcid) 20 mg PO 0900 GERD 06/27/22 06/27/22 09:00 History fenofibrate nanocrystallized 48 mg 48 mg PO 0900 CHOLESTEROL 06/27/22 06/27/22 09:00 History tablet (Tricor) levothyroxine 88 mcg tablet 88 mcg PO 0700 THYROID 06/27/22 06/27/22 07:00 History montelukast 10 mg tablet 10 mg PO 2100 ALLERGIES 06/27/22 06/26/22 21:00 History (Singulair) mycophenolate mofetil 250 mg 500 mg PO 0900,209906/27/22 06/27/22 09:00 History capsule (CellCept) omeprazole 40 mg capsule,delayed 80 mg PO 0900 GERD 06/27/22 06/27/22 09:00 History release prednisone 5 mg tablet 5 mg PO 0900 06/27/22 06/27/22 09:00 History aspirin 81 mg chewable tablet 81 mg PO DAILY #30 tabs 06/29/22 Unknown Rx carvedilol 12.5 mg tablet 12.5 mg PO BID 11/13/22 Unknown History clonazepam 0.5 mg tablet 0.25 mg PO DAILY PRN PRN Anxiety 11/13/22 Unknown History isosorbide mononitrate 60 mg 60 mg PO DAILY 11/13/22 Unknown History tablet,extended release 24 hr acetaminophen 650 mg 1,300 mg PO Q8H PRN PAAIN 02/20/23 Unknown History tablet,extended release (Arthritis Pain Reliever) adapalene 0.1 % topical cream 1 applic topical QHS 02/20/23 Unknown History (Differin) alendronate 70 mg tablet 70 mg PO QWEEK 02/20/23 Unknown History fluticasone propionate 50 1 spray intranasal DAILY 02/20/23 Unknown History mcg/actuation nasal spray,suspension (Flonase Allergy Relief) pilocarpine HCl 5 mg tablet mg PO 02/20/23 Unknown History potassium chloride 10 mEq meq PO 02/20/23 Unknown History tablet,extended release propylene glycol 0.6 % eye drops 1 drp ophthalmic (eye) DAILY PRN 02/20/23 Unknown History (Systane Balance) spironolactone 25 mg tablet mg PO 02/20/23 Unknown History trazodone 50 mg tablet mg PO 02/20/23 Unknown History umeclidinium 62.5 mcg-vilanterol inhalation 02/20/23 Unknown History 25 mcg/actuation powdr for inhalation (Anoro Ellipta) hydrocodone-acetaminophen 5-325mg 1 tab PO Q4H PRN PRN Pain 3 days 07/06/23 Unknown Rx 5mg-325mg #10 TABLETS Allergy/AdvReac Type Severity Reaction Status Date / Time cyclobenzaprine (From Allergy Rash Verified 03/21/24 11:57 Flexeril) Opioids - Morphine Analogues Allergy Rash Verified 03/21/24 11:57 grapefruit AdvReac Other Verified 03/21/24 11:57 passion fruit AdvReac Other Verified 03/21/24 11:57 quetiapine (From Seroquel) AdvReac Other Verified 03/21/24 11:57 Family History Other Heart disease Surgical History History of carotid angioplasty Hx of right heart catheterization Hx of tubal ligation Kidney transplant recipient Social History Smoking Status: Light Smoker (<10/day) alcohol intake: never substance use type: does not use EXAM Physical Exam Const Vital Signs: 03/21/24 11:57 03/21/24 13:13 03/21/24 13:30 Temperature 97.6 F L Temperature Source Oral Pulse Rate 56 L 56 L Respiratory Rate 18 20 H Blood Pressure 147/71 H 133/56 H Blood Pressure Mean 96 81 Pulse Ox 96 97 Oxygen Delivery Method Room Air Room Air 03/21/24 14:00 03/21/24 14:30 03/21/24 14:45 Temperature Temperature Source Pulse Rate 61 53 L 54 L Respiratory Rate 20 H 21 H 16 Blood Pressure 140/76 H 104/48 L 95/47 L Blood Pressure Mean 95 65 62 Pulse Ox Oxygen Delivery Method 03/21/24 15:00 03/21/24 15:15 03/21/24 15:45 Temperature Temperature Source Pulse Rate 53 L 54 L 59 L Respiratory Rate 17 14 21 H Blood Pressure 100/49 L 125/56 H 137/81 H Blood Pressure Mean 65 77 99 Pulse Ox Oxygen Delivery Method 03/21/24 16:00 03/21/24 17:15 Temperature 97.4 F L Temperature Source Pulse Rate 58 L 56 L Respiratory Rate 20 H 18 Blood Pressure 151/74 H 128/75 H Blood Pressure Mean 96 92 Pulse Ox 98 Oxygen Delivery Method MDM MDM MDM Narrative Medical decision making narrative: 63-year-old female presents for evaluation of an episode of lightheadedness. Episode happened from changing position from a seated to a standing position. Resolved with sitting. Endorses decreased p.o. intake due to stress. On presentation vitals are stable other than mild bradycardia. Patient is on a beta-enoch and on chart review has had bradycardia in the past. Differential diagnosis includes but is not limited to vasovagal response, dehydration, UTI, electrolyte abnormality, CAD. NS old bolus ordered. Cardiac workup including CT head and UA. EKG and chest x-ray reviewed. See above. CBC without leukocytosis. Patient has mild anemia of 11.9. Denies any dark or bloody stools. Has had anemia in the past. CMP shows mild renal insufficiency with a creatinine of 1.05. On previous labs, baseline is anywhere from 0.87-1.18. Patient does endorse decreased p.o. intake over the last couple weeks due to stress. Troponin unremarkable. UA negative for protein, blood, UTI, ketones. CT head without any acute intracranial abnormality. Patient is currently asymptomatic. She ambulated in the emergency department without any symptoms or recurrent lightheadedness. At this point in time, unclear etiology for patient's symptoms however I suspect that may be a vasovagal response due to decreased p.o. intake over the past couple days. Patient was updated on all her results. Plan is for discharge home. Follow-up with PCP. Patient was educated that she needs to increase her p.o. intake. She confirmed understanding. Patient was told to return back to the ED if symptoms recur or worsen. She endorsed understanding. Impression: 1. Episode of lightheadedness, suspect vasovagal response 2. Mild dehydration Lab Data Labs: Laboratory Results - last 24 hr 03/21/24 03/21/24 12:25 16:10 WBC 5.1 RBC 4.33 Hgb 11.9 L Hct 37.6 MCV 86.8 MCH 27.5 MCHC 31.6 L RDW Std Deviation 52.3 H RDW Coeff of Pete 16.5 H Plt Count 221 MPV 8.5 Immature Gran % (Auto) 0.200 Neut % (Auto) 73.5 H Lymph % (Auto) 13.5 L [place] % (Auto) 9.8 Eos % (Auto) 2.2 Baso % (Auto) 0.8 Absolute Neuts (auto) 3.8 Absolute Lymphs (auto) 0.69 L Nucleated RBC % 0 PT 13.8 INR 1.1 APTT 24.4 Sodium 134 L Potassium 3.7 Chloride 101 Carbon Dioxide 26.0 Anion Gap 7 BUN 18 Creatinine 1.05 H Estim Creat Clear Calc 49.99 Est GFR (MDRD) Af Amer 68 Est GFR (MDRD) Non-Af 56 L BUN/Creatinine Ratio 17.1 Glucose 136 H Calcium 9.8 Troponin I High Sens 10 Urine Color Yellow Urine Clarity Clear Urine pH 8.0 Ur Specific [place] 1.015 Urine Protein Negative Urine Glucose (UA) Normal Urine Ketones Negative Urine Occult Blood Negative Urine Nitrite Negative Urine Bilirubin Negative Urine Urobilinogen Normal Ur Leukocyte Esterase Negative Urine RBC 0 SEEN Urine WBC 0 SEEN Ur Squamous Epith Cells 0 SEEN Urine Bacteria 0 SEEN Urine Mucus 0 SEEN Radiography Diagnostic Testing: Clinical Impression(s) from Imaging Studies Chest X-Ray 03/21/24 12:34 IMPRESSION: No acute thoracic pathology. Electronically Signed: Martínez Rocha MD at 13:15 EDT , Brain CT 03/21/24 15:17 IMPRESSION: There are no acute findings. Chronic involutional changes of the brain. Electronically Signed: Cristi Chávez MD at 15:48 EDT , Discharge Plan Triage Chief Complaint: Dizziness ED Provider: Vijay Cordon Dx/Rx/DC Orders Clinical Impression: Episodic lightheadedness Instructions: ED Dizziness, Uncertain Cause Prescriptions: No Action alendronate 70 mg tablet 70 mg PO QWEEK potassium chloride 10 mEq tablet extended release PO spironolactone 25 mg tablet PO pilocarpine HCl 5 mg tablet PO trazodone 50 mg tablet PO Systane Balance 0.6 % drops 1 drp ophthalmic (eye) DAILY PRN fluticasone propionate [Flonase Allergy Relief] 50 mcg/actuation spray,suspension 1 spray intranasal DAILY Rx Instructions: administer into each nostril Anoro Ellipta 62.5-25 mcg/actuation blister with device inhalation adapalene [Differin] 0.1 % cream 1 applic topical QHS prednisone 5 mg Tablet 5 mg PO 0900 clopidogrel [Plavix] 75 mg Tablet 75 mg PO 0900 famotidine [Pepcid] 20 mg Tablet 20 mg PO 0900 amlodipine 10 mg Tablet 10 mg PO 0900 ezetimibe [Zetia] 10 mg Tablet 10 mg PO 0900 mycophenolate mofetil [CellCept] 250 mg Capsule 500 mg PO 0900,2100 omeprazole 40 mg Capsule,Delayed Release(Dr/Ec) 80 mg PO 0900 cyclosporine 25 mg Capsule 75 mg PO 0900,2100 levothyroxine 88 mcg Tablet 88 mcg PO 0700 montelukast [Singulair] 10 mg Tablet 10 mg PO 2100 albuterol sulfate [Proventil HFA] 90 mcg/actuation Hfa Aerosol Inhaler 2 puff INHALATION Q4H PRN (Reason: Shortness Of Breath) fenofibrate nanocrystallized [Tricor] 48 mg Tablet 48 mg PO 0900 aspirin 81 mg tablet,chewable 81 mg PO DAILY Qty: 30 0RF acetaminophen [Arthritis Pain Reliever] 650 mg tablet extended release 1,300 mg PO Q8H PRN (Reason: PAAIN) carvedilol 12.5 mg tablet 12.5 mg PO BID clonazepam 0.5 mg tablet 0.25 mg PO DAILY PRN PRN (Reason: Anxiety) isosorbide mononitrate 60 mg tablet extended release 24 hr 60 mg PO DAILY hydrocodone-acetaminophen 5-325 mg tablet 1 tab PO Q4H PRN PRN (Reason: Pain) 3 Days Qty: 10 0RF Primary Care Provider: Hiram Frias Referrals: Hiram Frias MD [Primary Care Provider] - 3-5 Days Print Language: Luxembourger Disposition Disposition: Home, Self Care Discharge Date/Time: 03/21/24 17:15
--- NOTE | 2024-03-21 15:17 | CT_ITS ---
STUDY: CT BRAIN WITHOUT CONTRAST REASON FOR EXAM: Female, 63 years old. lightheaded Individualized dose optimization techniques were used for this CT. TECHNIQUE: Transaxial CT imaging of the brain was performed without administration of intravenous contrast material. COMPARISON: None FINDINGS: There are calcifications noted in the distal vertebral arteries. There are calcifications noted in the cavernous carotid arteries. This is consistent for atherosclerotic disease. Normal calvarium. Normal soft tissues. Normal size ventricles and extra-axial spaces for the patient''s age. There are areas of decreased attenuation within the white matter tracts of the supratentorial brain, consistent with microvascular disease changes. Normal basal ganglia and thalami. Normal brainstem. There is mild cerebellar atrophy. There is no intracranial hemorrhage. There are no findings of an acute ischemic infarction. Normal visualized paranasal sinuses. ASPECTS Score for Acute Strokes: 10/ CT/Brain/Head without Contrast IMPRESSION: There are no acute findings. Chronic involutional changes of the brain. Electronically Signed: Cristi Chávez MD at 15:48 EDT ,
[2024-03-21 16:00] LABS: Troponin-I HS 10 pg/mL (3.0-54.0)
[2024-03-21 16:16] LABS: Bacteria 0 SEEN /hpf (None Seen); Mucous, Urine 0 SEEN /hpf (<or=2+); Red Blood Cells-Urine 0 SEEN /hpf (0-5); Squamous Epithelial Cells - UA 0 SEEN /hpf (5-10); White Blood Cells 0 SEEN /hpf (0-5)
[2024-03-21 16:29] LABS: Color, Urine Yellow (Yellow); Glucose, Dipstick Normal (Normal); Ketone-Dipstick Negative (Negative); Leukocyte Esterase-Dipstick Negative /ul (Negative); Nitrite-Dipstick Negative (Negative); Occult Blood-Urine Negative /ul (Negative); Protein-Dipstick Negative (Negative); Specific Gravity, Urine 1.015 (1.002-1.030); Urine Bilirubin Dipstick Negative (Negative); Urine Clarity Clear (Clear); Urine Urobilinogen Normal (Normal)
== END 2024-03-21 17:15 | disposition home or self-care (01) ==
PROVIDERS: Emergency Provider Surgery; PCP Family Medicine; Visit Provider Surgery
DX: R42 Dizziness and giddiness (principal); J44.9 Chronic obstructive pulmonary disease, unspecified; E86.0 Dehydration; E78.00 Pure hypercholesterolemia, unspecified; F17.200 Nicotine dependence, unspecified, uncomplicated; Z92.21 Personal history of antineoplastic chemotherapy; Z79.60 Long term (current) use of unspecified immunomodulators and immunosuppressants; Z94.89 Other transplanted organ and tissue status; I12.9 Hypertensive chronic kidney disease with stage 1 through stage 4 chronic kidney disease, or unspecified chronic kidney disease; N18.9 Chronic kidney disease, unspecified; Z85.89 Personal history of malignant neoplasm of other organs and systems; Z79.899 Other long term (current) drug therapy; Z79.02 Long term (current) use of antithrombotics/antiplatelets; K21.9 Gastro-esophageal reflux disease without esophagitis; E03.9 Hypothyroidism, unspecified; Z79.82 Long term (current) use of aspirin; F41.1 Generalized anxiety disorder; Z79.51 Long term (current) use of inhaled steroids; Z98.61 Coronary angioplasty status; Z98.51 Tubal ligation status
CPT/HCPCS: 70450; 71045; 80048; 81001; 84484; 85025; 85610; 85730; 93005; 99284; A4216

== ENCOUNTER 2024-04-26 13:51 | Emergency (ER) | payer MEDICARE, MEDICAID, SELFPAY ==
[2024-04-26] VITALS (8 sets, daily range): BP systolic 113–121; BP diastolic 62–74; PULSE 52–66; RESP 14–19; TEMP 35.7–36.6; O2SAT 97–99; BMI 24.3
--- NOTE | 2024-04-26 15:04 | ED.VIS.DYS ---
HPI History of Present Illness Chief Complaint: Shortness of Breath [facility] Medical History Bipolar disorder, unspecified Cancer of tonsil Carotid arterial disease Chest pain COPD (chronic obstructive pulmonary disease) Generalized anxiety disorder GERD (gastroesophageal reflux disease) Hepatitis High cholesterol History of chemotherapy HTN (hypertension) Hx of radiation therapy Hypothyroid Irregular heart beat Kidney disease Kidney failure Renal vein stenosis of kidney transplant Unstable angina Home Medications ?Medication ?Instructions ?Recorded ?Last Taken ?Type albuterol sulfate 90 mcg/actuation 2 puff inhalation Q4H PRN 06/27/22 06/26/22 History aerosol inhaler (Proventil HFA) Shortness Of Breath amlodipine 10 mg tablet 10 mg PO 0900 BLOOD PRESSURE 06/27/22 06/27/22 09:00 History clopidogrel 75 mg tablet (Plavix) 75 mg PO 0900 BLOOD THINNER 06/27/22 06/27/22 09:00 History cyclosporine 25 mg capsule 75 mg PO 0900,2100 06/27/22 06/27/22 09:00 History ezetimibe 10 mg tablet (Zetia) 10 mg PO 0900 CHOLESTEROL 06/27/22 06/27/22 09:00 History famotidine 20 mg tablet (Pepcid) 20 mg PO 0900 GERD 06/27/22 06/27/22 09:00 History fenofibrate nanocrystallized 48 mg 48 mg PO 0900 CHOLESTEROL 06/27/22 06/27/22 09:00 History tablet (Tricor) levothyroxine 88 mcg tablet 88 mcg PO 0700 THYROID 06/27/22 06/27/22 07:00 History montelukast 10 mg tablet 10 mg PO 2100 ALLERGIES 06/27/22 06/26/22 21:00 History (Singulair) mycophenolate mofetil 250 mg 500 mg PO 0900,2100 06/27/22 06/27/22 09:00 History capsule (CellCept) omeprazole 40 mg capsule,delayed 80 mg PO 0900 GERD 06/27/22 06/27/22 09:00 History release prednisone 5 mg tablet 5 mg PO 0900 06/27/22 06/27/22 09:00 History aspirin 81 mg chewable tablet 81 mg PO DAILY #30 tabs 06/29/22 Unknown Rx carvedilol 12.5 mg tablet 12.5 mg PO BID 11/13/22 Unknown History clonazepam 0.5 mg tablet 0.25 mg PO DAILY PRN PRN Anxiety 11/13/22 Unknown History isosorbide mononitrate 60 mg 60 mg PO DAILY 11/13/22 Unknown History tablet,extended release 24 hr acetaminophen 650 mg 1,300 mg PO Q8H PRN PAAIN 02/20/23 Unknown History tablet,extended release (Arthritis Pain Reliever) adapalene 0.1 % topical cream 1 applic topical QHS 02/20/23 Unknown History (Differin) alendronate 70 mg tablet 70 mg PO QWEEK 02/20/23 Unknown History fluticasone propionate 50 1 spray intranasal DAILY 02/20/23 Unknown History mcg/actuation nasal spray,suspension (Flonase Allergy Relief) pilocarpine HCl 5 mg tablet mg PO 02/20/23 Unknown History potassium chloride 10 mEq meq PO 02/20/23 Unknown History tablet,extended release propylene glycol 0.6 % eye drops 1 drp ophthalmic (eye) DAILY PRN 02/20/23 Unknown History (Systane Balance) spironolactone 25 mg tablet mg PO 02/20/23 Unknown History trazodone 50 mg tablet mg PO 02/20/23 Unknown History umeclidinium 62.5 mcg-vilanterol inhalation 02/20/23 Unknown History 25 mcg/actuation powdr for inhalation (Anoro Ellipta) hydrocodone-acetaminophen 5-325mg 1 tab PO Q4H PRN PRN Pain 3 days 07/06/23 Unknown Rx 5mg-325mg #10 TABLETS doxycycline monohydrate 100 mg 100 mg PO BID #14 CAPSULES 04/26/24 Unknown Rx capsule Allergy/AdvReac Type Severity Reaction Status Date / Time cyclobenzaprine (From Allergy Rash Verified 04/26/24 19:07 Flexeril) Opioids - Morphine Analogues Allergy Rash Verified 04/26/24 19:07 grapefruit AdvReac Other Verified 04/26/24 19:07 passion fruit AdvReac Other Verified 04/26/24 19:07 quetiapine (From Seroquel) AdvReac Other Verified 04/26/24 19:07 Family History Other Heart disease Surgical History History of carotid angioplasty Hx of right heart catheterization Hx of tubal ligation Kidney transplant recipient Social History Smoking Status: Light Smoker (<10/day) alcohol intake: never substance use type: does not use EXAM Physical Exam Const Vital Signs: 04/26/24 13:51 04/26/24 13:54 04/26/24 14:18 Temperature 96.3 F L 96.3 F L Temperature Source Temporal Oral Pulse Rate 62 62 Respiratory Rate 19 H 16 Respiratory Effort Normal Respiratory Depth Normal Respiratory Pattern Normal Blood Pressure 116/71 117/62 Blood Pressure Mean 86 80 Pulse Ox 97 97 Oxygen Delivery Method Room Air Room Air Room Air 04/26/24 14:51 04/26/24 15:00 04/26/24 15:26 Temperature Temperature Source Pulse Rate 60 63 Respiratory Rate 16 16 Respiratory Effort Respiratory Depth Respiratory Pattern Blood Pressure 118/72 118/71 Blood Pressure Mean 87 86 Pulse Ox 97 97 Oxygen Delivery Method Room Air 04/26/24 16:00 04/26/24 17:00 04/26/24 18:00 Temperature Temperature Source Pulse Rate 52 L 62 66 Respiratory Rate 14 16 17 Respiratory Effort Respiratory Depth Respiratory Pattern Blood Pressure 113/63 Blood Pressure Mean 79 Pulse Ox 98 98 99 Oxygen Delivery Method Room Air Room Air MDM MDM MDM Narrative Medical decision making narrative: HISTORY OF PRESENT ILLNESS: 64-year-old female presents with concern for shortness of breath. Chest pain and hemoptysis. this has been ongoing for 2 weeks. Patient states pain radiated around her ribs. Is not worse with deep breath. Not exertional. No lower extremity edema. No fever. No sick contacts. Notes recent negative COVID test. Denies midsternal chest pain or pressure. The patient denies recent surgery in the last 4 weeks or immobilization in the last 3 days, unilateral leg swelling or malignancy with treatment the last 6 months or palliative. No estrogen use noted. Notes history of PE Patient denies sudden onset of pain, no tearing sensation, no migratory symptoms, no new numbness, weakness or loss of sensation. Patient denies family history or personal history of Connective tissue disorders (Marfan's Syndrome, Annelise Danlos etc) REVIEW OF SYSTEMS: Pertinent positives: Chest pain, shortness of breath, mopped assist Pertinent negatives: Syncope PHYSICAL EXAM: Nursing triage notes reviewed, Vital signs reviewed Constitutional: please see [facility] HENT: MMM Eyes: Pupils equal round and reactive to light, Extraocular muscles intact Neck: No stridor, no JVD, full neck ROM Lungs: Clear to auscultation, No wheezing or rales. No increased work of breathing, no conversational dyspnea, no accessory muscle use, no nasal flaring. No respiratory distress noted Heart: Regular rate and rhythm, No murmurs, No rubs and No gallops, 2+ distal pulses (radial, femoral, posterior tibial) in all extremities Abdomen: Soft, there is no tenderness, rigidity, rebound or guarding, no obvious peritoneal signs, no palpable pulsatile abdominal masses, no auscultated abdominal bruit : No CVAT Extremities: No edema Neuro: No focal neurological deficits, cranial nerves II through XII intact, 5/5 strength in all extremities. Intact sensation to light touch in all extremities, 2+ reflexes bilateral patella tendons. Normal gait. No ataxia. Skin: No rash or lesions noted MEDICAL DECISION MAKING: Chief Complaint: As per HPI External records reviewed: Reviewed vital signs, prior problem list, allergies, current medications Factors affecting care: COPD, hypertension, peripheral vascular disease tonsillar cancer, CKD, Social determinants of health: none History obtained from others: none Consults: none [facility] Narrative: Patient was initially hemodynamically stable, afebrile and nontoxic-appearing. Exam without focal cardiopulmonary normalities. No stigmata of VTE on initial exam. I considered the following differential diagnosis: Pneumonia, COVID, flu, PE, ACS, arrhythmia, anemia, electrolyte disturbance, pneumothorax I obtained a broad lab and imaging workup to further elucidate etiology of the patient's complaints ALL IMAGES (IF OBTAINED) HAVE BEEN PERSONALLY REVIEWED AND INTERPRETED BY MYSELF. EKG with sinus bradycardia rate of 55, normal axis, normal intervals, no STEMI, no signs of heart strain, no signs of ischemia CBC with no leukocytosis, mild anemia, no thrombocytopenia BMP without evidence of significant electrolyte abnormalities, no anion gap, no acute kidney injury. High-sensitivity troponin is negative, no evidence of myocardial ischemia BNP slightly elevated consistent with increased ventricular stretch and volume overload. CTA of the chest with and without contrast which was read and reviewed person by myself showed no evidence of PE but showed possible left sided pneumonia Patient hemoptysis may be secondary to infectious etiology. In light of her immunocompromise state will give prophylactic doxycycline. Patient ambulated in the ED without hypoxia. She is appropriate for discharge home. The patient and/or family, caregivers express understanding. The patient and/or family, caregivers agrees with the plan. Shared decision making: I will have a discussion with the patient and or visitors regarding risk/benefits of further testing or admission. They will be made aware of of the risk/benefits inherent in this decision they will be given the opportunity to voice understanding. Total critical care time today provided was at least 0 minutes. This excludes separately billable procedures. Critical care time (if documented) is secondary to the patient having high probability of clinically significant/life threatening deterioration in the patient's condition which required my urgent intervention. Impression: 1. Chest pain 2. Dyspnea 3. Status post renal transplant 4. Hemoptysis 5. Commune acquired pneumonia Dispo: Discharge This note was generated with PEER dictation software. It may contain incorrect words, spelling, and punctuation that were not noted in review of the chart prior to signing. Lab Data Labs: Laboratory Results - last 24 hr 04/26/24 15:50 WBC 4.6 RBC 4.06 L Hgb 11.7 L Hct 35.9 L MCV 88.4 MCH 28.8 MCHC 32.6 RDW Std Deviation 50.0 H RDW Coeff of Pete 15.3 H Plt Count 221 MPV 9.3 Immature Gran % (Auto) 0.200 Neut % (Auto) 80.6 H Lymph % (Auto) 11.2 L [place] % (Auto) 6.6 Eos % (Auto) 0.7 Baso % (Auto) 0.7 Absolute Neuts (auto) 3.7 Absolute Lymphs (auto) 0.51 L Nucleated RBC % 0 Sodium 139 Potassium 4.5 Chloride 106 Carbon Dioxide 26.0 Anion Gap 7 BUN 35 H Creatinine 1.07 H Estim Creat Clear Calc 48.42 Est GFR (MDRD) Af Amer 67 Est GFR (MDRD) Non-Af 55 L BUN/Creatinine Ratio 32.7 H Glucose 98 Calcium 10.5 H Troponin I High Sens 10 B-Natriuretic Peptide 195.4 H Radiography Diagnostic Testing: Clinical Impression(s) from Imaging Studies Chest CTA 04/26/24 16:45 IMPRESSION: 1. No evidence of pulmonary embolus. 2. Reflux of contrast into the inferior vena cava and hepatic veins which may indicate decreased cardiac output. 3. Groundglass opacities in the left lower lobe which may represent an early infectious etiology. Electronically Signed: Alexi Sargent MD at 17:24 EDT , Discharge Plan Triage Chief Complaint: Shortness of Breath Other Complaint: Cough ED Provider: Wil Valadez Dx/Rx/DC Orders Instructions: ED Pneumonia (Adult) Prescriptions: New doxycycline monohydrate 100 mg capsule 100 mg PO BID Qty: 14 0RF No Action alendronate 70 mg tablet 70 mg PO QWEEK potassium chloride 10 mEq tablet extended release PO spironolactone 25 mg tablet PO pilocarpine HCl 5 mg tablet PO trazodone 50 mg tablet PO Systane Balance 0.6 % drops 1 drp ophthalmic (eye) DAILY PRN fluticasone propionate [Flonase Allergy Relief] 50 mcg/actuation spray,suspension 1 spray intranasal DAILY Rx Instructions: administer into each nostril Anoro Ellipta 62.5-25 mcg/actuation blister with device inhalation adapalene [Differin] 0.1 % cream 1 applic topical QHS prednisone 5 mg Tablet 5 mg PO 0900 clopidogrel [Plavix] 75 mg Tablet 75 mg PO 0900 famotidine [Pepcid] 20 mg Tablet 20 mg PO 0900 amlodipine 10 mg Tablet 10 mg PO 0900 ezetimibe [Zetia] 10 mg Tablet 10 mg PO 0900 mycophenolate mofetil [CellCept] 250 mg Capsule 500 mg PO 0900,2100 omeprazole 40 mg Capsule,Delayed Release(Dr/Ec) 80 mg PO 0900 cyclosporine 25 mg Capsule 75 mg PO 0900,2100 levothyroxine 88 mcg Tablet 88 mcg PO 0700 montelukast [Singulair] 10 mg Tablet 10 mg PO 2100 albuterol sulfate [Proventil HFA] 90 mcg/actuation Hfa Aerosol Inhaler 2 puff INHALATION Q4H PRN (Reason: Shortness Of Breath) fenofibrate nanocrystallized [Tricor] 48 mg Tablet 48 mg PO 0900 aspirin 81 mg tablet,chewable 81 mg PO DAILY Qty: 30 0RF acetaminophen [Arthritis Pain Reliever] 650 mg tablet extended release 1,300 mg PO Q8H PRN (Reason: PAAIN) carvedilol 12.5 mg tablet 12.5 mg PO BID clonazepam 0.5 mg tablet 0.25 mg PO DAILY PRN PRN (Reason: Anxiety) isosorbide mononitrate 60 mg tablet extended release 24 hr 60 mg PO DAILY hydrocodone-acetaminophen 5-325 mg tablet 1 tab PO Q4H PRN PRN (Reason: Pain) 3 Days Qty: 10 0RF Primary Care Provider: Hiram Frias Referrals: Hiram Frias MD [Primary Care Provider] - Activity Restrictions/Additional Instructions: Thank you for trusting us with your care today! Your note your labs images were reassuring. The CT scan of your chest did not show evidence of a blood clot. Showed evidence of possible pneumonia. I will write you a prescription for antibiotics. Please take Tylenol (2 pills, 650 mg), ibuprofen (2 pills, 400 mg) every 6 hours as needed for pain and fever control. Please take antibiotics until course complete Please return to the emergency department if your symptoms change or worsen. Please follow with your primary care physician for further outpatient evaluation and management. Print Language: Korean Disposition Disposition: Home, Self Care
--- NOTE | 2024-04-26 15:26 | EKG12_ITS ---
Test Reason : CP Blood Pressure : / mmHG Vent. Rate : 055 BPM Atrial Rate : 055 BPM P-R Int : 162 ms QRS Dur : 088 ms QT Int : 418 ms P-R-T Axes : 065 028 042 degrees QTc Int : 399 ms Sinus bradycardia Otherwise normal ECG Confirmed by HUNTER HOPKINS, GUERITA ([id number]), newspaper photo editor JOSE ROBERTO ESPINOZA ([id number]) on 04/28/2024 10:03:58 AM Referred By: JERAD/SEBASTIAN Confirmed By:GUERITA HARRISON MD
[2024-04-26 16:09] LABS: Absolute Lymphocyte Count 0.51 X10^3/uL (0.83-4.51); Absolute Neutrophil Count 3.7 X10^3/uL (2.0-7.7); Basophil# 0.03 X10^3/uL; Basophil% 0.7 % (0-1); Eosinophil# 0.03 X10^3/uL; Eosinophils% 0.7 % (0-5); Hematocrit 35.9 % (37-47); Hemoglobin 11.7 g/dL (12.0-15.0); Lymphocyte # 0.51 X10^3/ul (0.83-4.51); Lymphocyte % 11.2 % (19-41); Mean Corp Hgb Conc 32.6 g/dL (32-36); Mean Corpuscular Hgb 28.8 pg (27.0-32.0); Mean Corpuscular Volume 88.4 fL (81-99); Mean Platelet Vol. 9.3 fl (6.2-12.0); Monocyte% 6.6 % (0-10); NRBC Flagged by Analyzer 0 % (0-5); Neutrophil # 3.68 X10^3/uL (2.7-7.7); Neutrophil % 80.6 % (47-70); POSITIVE DIFFERENTIAL YES; Platelet Count 221 K/mm3 (150-450); RBC Distribution Width CV 15.3 % (11.6-14.6); Red Blood Count 4.06 M/mm3 (4.2-5.4); White Blood Count 4.6 K/mm3 (4.4-11.0)
[2024-04-26 16:30] LABS: Anion Gap 7 (5-15); BUN 35 mg/dL (7-18); BUN/Creat Ratio 32.7 RATIO (10-20); Calcium,Total 10.5 mg/dL (8.5-10.1); Chloride 106 mmol/L (98-107); Creatinine, Serum 1.07 mg/dL (0.55-1.02); EST Glomerular Filtration Rate 55 mL/min (>60); Est Glom Filt Rate - Afr Amer 67 mL/min (>60); Estimated Creatinine Clearance 48.42 ml/min; Glucose 98 mg/dL (74-106); Potassium 4.5 mmol/L (3.5-5.1); Sodium Level 139 mmol/L (136-145); Troponin-I HS 10 pg/mL (3.0-54.0)
[2024-04-26 16:36] LABS: BNP,B-Type NATRIURETIC PEPTIDE 195.4 pg/mL (0-100)
--- NOTE | 2024-04-26 16:45 | CT_ITS ---
EXAM: CT ANGIOGRAPHY CHEST WITHOUT AND WITH INTRAVENOUS CONTRAST CLINICAL INDICATION: SOB, hemoptysis TECHNIQUE: Helically acquired angiography images were obtained of the chest without and with intravenous contrast. This CT exam was performed using one or more of the following dose reduction techniques: automated exposure control, adjustment of the mA and/or kV according to patient size, and/or use of iterative reconstruction technique. MIP reconstructed images were created and reviewed. CONTRAST: IV 75mL [id number] COMPARISON: No relevant prior studies available. FINDINGS: PULMONARY ARTERIES: Unremarkable. Normal in caliber. No evidence of pulmonary embolism. AORTA: Unremarkable. Normal in caliber. No evidence of dissection. GREAT VESSELS OF AORTIC ARCH: Unremarkable. Normal in caliber. No evidence of dissection. INFERIOR VENA CAVA: There is reflux of contrast into the inferior vena cava and hepatic veins indicate decreased cardiac output. LUNGS AND PLEURAL SPACES: There are groundglass opacities in the left lung base. No mass. No pleural effusion or thickening. No pneumothorax. HEART: See above. MEDIASTINUM: Unremarkable. No mediastinal or hilar adenopathy. Esophagus is unremarkable. No hiatal hernia. THYROID: Unremarkable. No thyroid lesions. BONES/JOINTS: Unremarkable. No suspicious lytic or blastic abnormality. CT/CTA Chest W/WO Contrast IMPRESSION: 1. No evidence of pulmonary embolus. 2. Reflux of contrast into the inferior vena cava and hepatic veins which may indicate decreased cardiac output. 3. Groundglass opacities in the left lower lobe which may represent an early infectious etiology. Electronically Signed: Alexi Sargent MD at 17:24 EDT ,
--- NOTE | 2024-04-26 18:59 | ED.RN ---
AMBULATED WITH PULSE OX 98% START AND 95% DURING. DIZZINESS AND GAIT UNSTEADY, BUT TOLERATED. FLOATERS IN PERIPHERAL
[2024-04-26] MEDS: Doxycycline 100 MG CAPSULE PO (19:08)
== END 2024-04-26 19:15 | disposition home or self-care (01) ==
PROVIDERS: Emergency Provider Emergency Medicine; PCP Family Medicine; Visit Provider Emergency Medicine
DX: R06.00 Dyspnea, unspecified (principal); J44.9 Chronic obstructive pulmonary disease, unspecified; J18.9 Pneumonia, unspecified organism; R07.9 Chest pain, unspecified; Z94.0 Kidney transplant status; E78.00 Pure hypercholesterolemia, unspecified; I12.9 Hypertensive chronic kidney disease with stage 1 through stage 4 chronic kidney disease, or unspecified chronic kidney disease; N18.9 Chronic kidney disease, unspecified; R04.2 Hemoptysis; Z85.89 Personal history of malignant neoplasm of other organs and systems; Z92.21 Personal history of antineoplastic chemotherapy; Z92.3 Personal history of irradiation; Z79.899 Other long term (current) drug therapy; Z79.02 Long term (current) use of antithrombotics/antiplatelets; K21.9 Gastro-esophageal reflux disease without esophagitis; Z79.890 Hormone replacement therapy; E03.9 Hypothyroidism, unspecified; Z98.51 Tubal ligation status; F17.200 Nicotine dependence, unspecified, uncomplicated
CPT/HCPCS: 71275; 80048; 83880; 84484; 85025; 87631; 93005; 99284; Q9967; A4216

== ENCOUNTER 2024-05-28 08:20 | Emergency (ER) | payer MEDICARE, MEDICAID, SELFPAY ==
[2024-05-28 08:22] VITALS: BP 169/93; PULSE 62; RESP 16; TEMP 37.1; O2SAT 98; BMI 23.8
--- NOTE | 2024-05-28 08:41 | ED.VIS.LOWEX ---
HPI History of Present Illness Chief Complaint: Lower Extremity Injury Narrative Narrative: 64-year-old female presents with injury to her right lateral foot and ankle that she sustained yesterday evening around 8 PM, approximately 12 hours ago. She relates history that she was sitting in her recliner with her legs crossed. When she went to stand, she had paresthesias of her foot because it had fallen asleep. She heard some cracking and popping when she went to bear weight as she initially steps with her right foot. She bandaged her right foot and ankle and went to sleep. She awoke with swelling and bruising to her right foot and right lateral ankle. She states that formerly she was a runner and this is her 11th ankle sprain. She now has pain with weightbearing and movement of her right foot and ankle. She denies falling, hitting her head, loss of consciousness, or other injury. [facility] Medical History Hx of radiation therapy History of chemotherapy Generalized anxiety disorder Bipolar disorder, unspecified Kidney disease Hepatitis Irregular heart beat Unstable angina Chest pain Hypothyroid COPD (chronic obstructive pulmonary disease) GERD (gastroesophageal reflux disease) High cholesterol HTN (hypertension) Renal vein stenosis of kidney transplant Carotid arterial disease Kidney failure Cancer of tonsil Home Medications ?Medication ?Instructions ?Recorded ?Last Taken ?Type albuterol sulfate 90 mcg/actuation 2 puff inhalation Q4H PRN 06/27/22 06/26/22 History aerosol inhaler (Proventil HFA) Shortness Of Breath amlodipine 10 mg tablet 10 mg PO 0900 BLOOD PRESSURE 06/27/22 06/27/22 09:00 History clopidogrel 75 mg tablet (Plavix) 75 mg PO 0900 BLOOD THINNER 06/27/22 06/27/22 09:00 History cyclosporine 25 mg capsule 75 mg PO 0900,2100 06/27/22 06/27/22 09:00 History ezetimibe 10 mg tablet (Zetia) 10 mg PO 0900 CHOLESTEROL 06/27/22 06/27/22 09:00 History famotidine 20 mg tablet (Pepcid) 20 mg PO 0900 GERD 06/27/22 06/27/22 09:00 History fenofibrate nanocrystallized 48 mg 48 mg PO 0900 CHOLESTEROL 06/27/22 06/27/22 09:00 History tablet (Tricor) levothyroxine 88 mcg tablet 88 mcg PO 0700 THYROID 06/27/22 06/27/22 07:00 History montelukast 10 mg tablet 10 mg PO 2100 ALLERGIES 06/27/22 06/26/22 21:00 History (Singulair) mycophenolate mofetil 250 mg 500 mg PO 0900,2100 06/27/22 06/27/22 09:00 History capsule (CellCept) omeprazole 40 mg capsule,delayed 80 mg PO 0900 GERD 06/27/22 06/27/22 09:00 History release prednisone 5 mg tablet 5 mg PO 0900 06/27/22 06/27/22 09:00 History aspirin 81 mg chewable tablet 81 mg PO DAILY #30 tabs 06/29/22 Unknown Rx carvedilol 12.5 mg tablet 12.5 mg PO BID 11/13/22 Unknown History clonazepam 0.5 mg tablet 0.25 mg PO DAILY PRN PRN Anxiety 11/13/22 Unknown History isosorbide mononitrate 60 mg 60 mg PO DAILY 11/13/22 Unknown History tablet,extended release 24 hr acetaminophen 650 mg 1,300 mg PO Q8H PRN PAAIN 02/20/23 Unknown History tablet,extended release (Arthritis Pain Reliever) adapalene 0.1 % topical cream 1 applic topical QHS 02/20/23 Unknown History (Differin) alendronate 70 mg tablet 70 mg PO QWEEK 02/20/23 Unknown History fluticasone propionate 50 1 spray intranasal DAILY 02/20/23 Unknown History mcg/actuation nasal spray,suspension (Flonase Allergy Relief) pilocarpine HCl 5 mg tablet mg PO 02/20/23 Unknown History potassium chloride 10 mEq meq PO 02/20/23 Unknown History tablet,extended release propylene glycol 0.6 % eye drops 1 drp ophthalmic (eye) DAILY PRN 02/20/23 Unknown History (Systane Balance) spironolactone 25 mg tablet mg PO 02/20/23 Unknown History trazodone 50 mg tablet mg PO 02/20/23 Unknown History umeclidinium 62.5 mcg-vilanterol inhalation 02/20/23 Unknown History 25 mcg/actuation powdr for inhalation (Anoro Ellipta) hydrocodone-acetaminophen 5-325mg 1 tab PO Q4H PRN PRN Pain 3 days 07/06/23 Unknown Rx 5mg-325mg #10 TABLETS doxycycline monohydrate 100 mg 100 mg PO BID #14 CAPSULES 04/26/24 Unknown Rx capsule Allergy/AdvReac Type Severity Reaction Status Date / Time cyclobenzaprine (From Allergy Rash Verified 05/28/24 08:21 Flexeril) Opioids - Morphine Analogues Allergy Rash Verified 05/28/24 08:21 grapefruit AdvReac Other Verified 05/28/24 08:21 passion fruit AdvReac Other Verified 05/28/24 08:21 quetiapine (From Seroquel) AdvReac Other Verified 05/28/24 08:21 Family History Other Heart disease Surgical History History of carotid angioplasty Hx of tubal ligation Hx of right heart catheterization Kidney transplant recipient Social History Smoking Status: Light Smoker (<10/day) alcohol intake: never substance use type: does not use ROS ROS ED ROS Narrative Constitutional: No fever, no chills. HEENT: No sore throat. No neck pain. No loss of vision. No rhinorrhea. Cardiovascular: No chest pain. No palpitations. No pedal edema. Respiratory: No cough, no shortness of breath. Abdominal: No abdominal pain. No nausea. No vomiting. Genitourinary: No dysuria. No hematuria. Musculoskeletal: No myalgias. Positive right lateral ankle and foot swelling with pain with weightbearing and walking. Noted mild discoloration. Neurologic: No headaches. No dizziness. No lightheadedness. Skin: No rash. No change in color. Psychiatric: No depression. No anxiety. EXAM Physical Exam Narrative Exam Narrative: Afebrile. Vital signs noted. GCS 15. ABCs are intact. Cardiovascular examination reveals a regular rate and rhythm. Lungs are clear to auscultation bilaterally. Abdomen soft and nontender with normoactive bowel sounds. Focused examination of the right ankle does reveal mild ecchymosis diffusely throughout the lateral malleolus and the dorsal aspect of the lateral right foot, no crepitance. Mild swelling directly below lateral malleolus and in the area of the talofibular ligament area. No tenderness to palpation on the fifth metatarsal proximally. Palpable dorsalis pedis pulse. No palpable Achilles tendon deficit. Able to plantarflex and dorsiflex foot. No proximal fibular head tenderness. Flexion and extension at knee intact. Const Vital Signs: 05/28/24 08:22 Temperature 98.8 F Temperature Source Temporal Pulse Rate 62 Respiratory Rate 16 Blood Pressure 169/93 H Blood Pressure Mean 118 Pulse Ox 98 Oxygen Delivery Method Room Air MDM MDM MDM Narrative Medical decision making narrative: Differential diagnosis includes but not limited to right ankle sprain versus fracture of the foot versus lateral malleolus fracture. Patient has not taken Tylenol since yesterday evening so she was given 650 mg orally here for analgesia. X-rays obtained of the right foot and right ankle and 3 views each interpreted by myself independently. On my independent interpretation of the right ankle, there is no apparent fracture. I reviewed the radiology report which confirms my independent interpretation. I also individually interpreted the x-ray of the right foot in 3 views and see no evidence of an acute fracture. I also reviewed the radiology report which confirms my independent interpretation. At this point in time, I feel she can be discharged to follow-up with her orthopedic surgeon. She was also referred to the local entertainment & media correspondent on-call. I offered her crutches or a walker but she declined. I had discussion with her regarding immobilization with Cornelio wrap versus air stirrup splint. She inquired about a walking boot, but I do feel this would be too heavy especially without crutches and that an Aircast would be more optimal at this point in time. Disposition is discharged home in stable condition. Return instructions were reviewed. History & Record Review Discussion w/independent historian: Patient Radiography Diagnostic Testing: Clinical Impression(s) from Imaging Studies Ankle X-Ray 05/28/24 08:45 IMPRESSION: Normal x-ray examination of the ankle. Electronically Signed: Amado Byrd MD at 9:14 EST , Foot X-Ray 05/28/24 08:45 IMPRESSION: Normal x-ray examination of the foot. Electronically Signed: Amado Byrd MD at 9:15 EST , Discharge Plan Triage Chief Complaint: Lower Extremity Injury ED Provider: Gibran Graff Dx/Rx/DC Orders Clinical Impression: Right ankle sprain, Sprain of right foot Instructions: ED Foot Sprain, ED Ankle Sprain (Adult) Prescriptions: No Action alendronate 70 mg tablet 70 mg PO QWEEK potassium chloride 10 mEq tablet extended release PO spironolactone 25 mg tablet PO pilocarpine HCl 5 mg tablet PO trazodone 50 mg tablet PO Systane Balance 0.6 % drops 1 drp ophthalmic (eye) DAILY PRN fluticasone propionate [Flonase Allergy Relief] 50 mcg/actuation spray,suspension 1 spray intranasal DAILY Rx Instructions: administer into each nostril Anoro Ellipta 62.5-25 mcg/actuation blister with device inhalation adapalene [Differin] 0.1 % cream 1 applic topical QHS prednisone 5 mg Tablet 5 mg PO 0900 clopidogrel [Plavix] 75 mg Tablet 75 mg PO 0900 famotidine [Pepcid] 20 mg Tablet 20 mg PO 0900 amlodipine 10 mg Tablet 10 mg PO 0900 ezetimibe [Zetia] 10 mg Tablet 10 mg PO 0900 mycophenolate mofetil [CellCept] 250 mg Capsule 500 mg PO 0900,2100 omeprazole 40 mg Capsule,Delayed Release(Dr/Ec) 80 mg PO 0900 cyclosporine 25 mg Capsule 75 mg PO 0900,2100 levothyroxine 88 mcg Tablet 88 mcg PO 0700 montelukast [Singulair] 10 mg Tablet 10 mg PO 2100 albuterol sulfate [Proventil HFA] 90 mcg/actuation Hfa Aerosol Inhaler 2 puff INHALATION Q4H PRN (Reason: Shortness Of Breath) fenofibrate nanocrystallized [Tricor] 48 mg Tablet 48 mg PO 0900 aspirin 81 mg tablet,chewable 81 mg PO DAILY Qty: 30 0RF acetaminophen [Arthritis Pain Reliever] 650 mg tablet extended release 1,300 mg PO Q8H PRN (Reason: PAAIN) carvedilol 12.5 mg tablet 12.5 mg PO BID clonazepam 0.5 mg tablet 0.25 mg PO DAILY PRN PRN (Reason: Anxiety) isosorbide mononitrate 60 mg tablet extended release 24 hr 60 mg PO DAILY hydrocodone-acetaminophen 5-325 mg tablet 1 tab PO Q4H PRN PRN (Reason: Pain) 3 Days Qty: 10 0RF doxycycline monohydrate 100 mg capsule 100 mg PO BID Qty: 14 0RF Stand Alone Forms: ED Work / School Excuse Primary Care Provider: Hiram Frias Referrals: Hiram Frias MD [Primary Care Provider] - Sharan Rodriguez DPM [Med Staff - Active Staff] - 1 Week Activity Restrictions/Additional Instructions: Continue ice and elevation of your right ankle. Weightbearing as tolerated. Follow-up with your orthopedic surgeon or podiatry in a week if not improving. [id number] medications as needed for pain. Print Language: Austrian Disposition Disposition: Home, Self Care Discharge Date/Time: 05/28/24 09:50
--- NOTE | 2024-05-28 08:45 | RAD_ITS ---
STUDY: X-RAY - RIGHT ANKLE REASON FOR EXAM: Female, 64 years old. trauma, pain TECHNIQUE: 3 view(s) of the ankle. COMPARISON: None. FINDINGS: Normal visualized distal tibia and fibula. Normal medial and lateral malleoli. Normal tibiotalar articulation and ankle mortise. Normal visualized talus and calcaneus. The visualized subtalar, talonavicular, calcaneocuboid and tarsal articulations are normal. The soft tissue structures are unremarkable. RAD/Ankle min 3 Views IMPRESSION: Normal x-ray examination of the ankle. Electronically Signed: Amado Byrd MD at 9:14 EST ,
--- NOTE | 2024-05-28 08:45 | RAD_ITS ---
STUDY: X-RAY - RIGHT FOOT CLINICAL: Female, 64 years old. Trauma TECHNIQUE: 3 view(s) of the foot. COMPARISON: None. FINDINGS: Normal talus, calcaneus, and tarsal bones. Normal visualized subtalar, talonavicular, calcaneocuboid, tarsal and tarsometatarsal articulations. Normal metatarsi. Normal metatarsophalangeal joint of the great toe. Normal tibial and fibular sesamoid bones. Normal interphalangeal joint of the great toe. Normal phalanges of the great toe. Normal second through fifth metatarsophalangeal joints. Normal interphalangeal joints and phalanges of the lesser toes. The soft tissue structures are unremarkable. RAD/Foot min 3 Views IMPRESSION: Normal x-ray examination of the foot. Electronically Signed: Amado Byrd MD at 9:15 [facility] ,
== END 2024-05-28 09:50 | disposition home or self-care (01) ==
PROVIDERS: Emergency Provider Emergency Medicine; PCP Family Medicine; Visit Provider Emergency Medicine
DX: S93.401A Sprain of unspecified ligament of right ankle, initial encounter (principal); J44.9 Chronic obstructive pulmonary disease, unspecified; W10.9XXA Fall (on) (from) unspecified stairs and steps, initial encounter; I10 Essential (primary) hypertension; E78.00 Pure hypercholesterolemia, unspecified; S90.31XA Contusion of right foot, initial encounter; S90.01XA Contusion of right ankle, initial encounter; F17.200 Nicotine dependence, unspecified, uncomplicated; Z98.51 Tubal ligation status; E03.9 Hypothyroidism, unspecified; K21.9 Gastro-esophageal reflux disease without esophagitis
CPT/HCPCS: 73610; 73630; 99282

== ENCOUNTER 2024-11-16 11:29 | Emergency (ER) | payer MEDICARE, MEDICAID, SELFPAY ==
[2024-11-16 11:29] VITALS: BP 97/58; PULSE 55; RESP 19; TEMP 36.7; O2SAT 99
--- NOTE | 2024-11-16 11:51 | EX.ED.DYSGE1 ---
HPI History of Present Illness Chief Complaint: Syncope Informant: patient Onset/Context/Timing Onset: Today Context: Gradual Onset Timing: Lasts (Approximately 1 minute) Quality: Lightheaded, foggy Location: Generalized Worsened by: Standing up Relieved by: Nothing Narrative Narrative: Patient presents with a syncopal episode that occurred today. Patient states she was visiting a friend when she started to feel lightheaded and foggy. Patient states that she stood up and then passed out. Patient states she was only out for approximately 1 minute. Patient denies any chest pain or shortness of breath. Patient denies any nausea or vomiting. Patient denies any palpitations. Patient denies any recent fevers or chills. [facility] Medical History (Updated 11/16/24 @ 16:[address] Bryant Patel, DO) Hx of radiation therapy History of chemotherapy Generalized anxiety disorder Bipolar disorder, unspecified Kidney disease Hepatitis Irregular heart beat Unstable angina Chest pain Hypothyroid COPD (chronic obstructive pulmonary disease) GERD (gastroesophageal reflux disease) High cholesterol HTN (hypertension) Renal vein stenosis of kidney transplant Carotid arterial disease Kidney failure Cancer of tonsil Home Medications ?Medication ?Instructions ?Recorded ?Last Taken ?Type albuterol sulfate 90 mcg/actuation 2 puff inhalation Q4H PRN 06/27/22 06/26/22 History aerosol inhaler (Proventil HFA) Shortness Of Breath amlodipine 10 mg tablet 10 mg PO 0900 BLOOD PRESSURE 06/27/22 06/27/22 09:00 History clopidogrel 75 mg tablet (Plavix) 75 mg PO 0900 BLOOD THINNER 06/27/22 06/27/22 09:00 History cyclosporine 25 mg capsule 75 mg PO 0900,2100 06/27/22 06/27/22 09:00 History ezetimibe 10 mg tablet (Zetia) 10 mg PO 0900 CHOLESTEROL 06/27/22 06/27/22 09:00 History famotidine 20 mg tablet (Pepcid) 20 mg PO 0900 GERD 06/27/22 06/27/22 09:00 History fenofibrate nanocrystallized 48 mg 48 mg PO 0900 CHOLESTEROL 06/27/22 06/27/22 09:00 History tablet (Tricor) levothyroxine 88 mcg tablet 88 mcg PO 0700 THYROID 06/27/22 06/27/22 07:00 History montelukast 10 mg tablet 10 mg PO 2100 ALLERGIES 06/27/22 06/26/22 21:00 History (Singulair) mycophenolate mofetil 250 mg 500 mg PO 0900,2100 06/27/22 06/27/22 09:00 History capsule (CellCept) omeprazole 40 mg capsule,delayed 80 mg PO 0900 GERD 06/27/22 06/27/22 09:00 History release prednisone 5 mg tablet 5 mg PO 0900 06/27/22 06/27/22 09:00 History aspirin 81 mg chewable tablet 81 mg PO DAILY #30 tabs 06/29/22 Unknown Rx carvedilol 12.5 mg tablet 12.5 mg PO BID 11/13/22 Unknown History clonazepam 0.5 mg tablet 0.25 mg PO DAILY PRN PRN Anxiety 11/13/22 Unknown History isosorbide mononitrate 60 mg 60 mg PO DAILY 11/13/22 Unknown History tablet,extended release 24 hr acetaminophen 650 mg 1,300 mg PO Q8H PRN PAAIN 02/20/23 Unknown History tablet,extended release (Arthritis Pain Reliever) adapalene 0.1 % topical cream 1 applic topical QHS 02/20/23 Unknown History (Differin) alendronate 70 mg tablet 70 mg PO QWEEK 02/20/23 Unknown History fluticasone propionate 50 1 spray intranasal DAILY 02/20/23 Unknown History mcg/actuation nasal spray,suspension (Flonase Allergy Relief) pilocarpine HCl 5 mg tablet mg PO 02/20/23 Unknown History potassium chloride 10 mEq meq PO 02/20/23 Unknown History tablet,extended release propylene glycol 0.6 % eye drops 1 drp ophthalmic (eye) DAILY PRN 02/20/23 Unknown History (Systane Balance) spironolactone 25 mg tablet mg PO 02/20/23 Unknown History trazodone 50 mg tablet mg PO 02/20/23 Unknown History umeclidinium 62.5 mcg-vilanterol inhalation 02/20/23 Unknown History 25 mcg/actuation powdr for inhalation (Anoro Ellipta) hydrocodone-acetaminophen 5-325mg 1 tab PO Q4H PRN PRN Pain 3 days 07/06/23 Unknown Rx 5mg-325mg #10 TABLETS doxycycline monohydrate 100 mg 100 mg PO BID #14 CAPSULES 04/26/24 Unknown Rx capsule Allergy/AdvReac Type Severity Reaction Status Date / Time cyclobenzaprine (From Allergy Rash Verified 11/16/24 11:29 Flexeril) Opioids - Morphine Analogues Allergy Rash Verified 11/16/24 11:29 grapefruit AdvReac Other Verified 11/16/24 11:29 passion fruit AdvReac Other Verified 11/16/24 11:29 quetiapine (From Seroquel) AdvReac Other Verified 11/16/24 11:29 Family History Other Heart disease Surgical History History of carotid angioplasty Hx of tubal ligation Hx of right heart catheterization Kidney transplant recipient Social History Smoking Status: Current some day smoker tobacco type: cigarettes and e-cigarettes alcohol intake: never substance use type: does not use ROS ROS ED Constitutional Constitutional ED: Denies chills or fever(s) Eyes Eyes: Denies blurry vision or change in vision ENT ENT ED: Denies rhinorrhea or sore throat Cardiovascular Cardiovascular: Denies chest pain or palpitations Respiratory/Chest Respiratory/Chest: Denies cough or dyspnea Gastrointestinal Gastrointestinal: Denies nausea or vomiting Genitourinary Genitourinary ED: Denies dysuria or hematuria Musculoskeletal Musculoskeletal: Reports back pain; Denies neck pain Integumentary Denies abscess or rash Neurologic Neurologic: Reports weakness; Denies headache(s) Allergic/Immunologic Allergic/Immunologic ED: Denies mouth swelling or urticaria EXAM Physical Exam Const Vital Signs: 11/16/24 11:29 11/16/24 12:43 11/16/24 13:02 Temperature 98.1 F Temperature Source Oral Pulse Rate 55 L Pulse Rate [Lying] 55 L Pulse Rate [Sitting (for 1 minute prior to obtaining)] 57 L Pulse Rate [Standing (for 1 minute prior to obtaining)] 60 Respiratory Rate 19 H Respiratory Effort Normal Respiratory Pattern Normal Blood Pressure 97/58 L Blood Pressure [Lying] 115/56 L Blood Pressure [Sitting (for 1 minute prior to obtaining)] 126/63 H Blood Pressure [Standing (for 1 minute prior to obtaining)] 93/75 Blood Pressure Mean 71 Blood Pressure Mean [Lying] 75 Blood Pressure Mean [Sitting (for 1 minute prior to obtaining)] 84 Blood Pressure Mean [Standing (for 1 minute prior to obtaining)] 81 Pulse Ox 99 Oxygen Delivery Method Room Air 11/16/24 13:29 11/16/24 15:15 11/16/24 16:53 Temperature 98.3 F Temperature Source Pulse Rate 60 60 60 Pulse Rate [Lying] Pulse Rate [Sitting (for 1 minute prior to obtaining)] Pulse Rate [Standing (for 1 minute prior to obtaining)] Respiratory Rate 16 16 16 Respiratory Effort Respiratory Pattern Blood Pressure 112/81 H 99/53 L 125/54 H Blood Pressure [Lying] Blood Pressure [Sitting (for 1 minute prior to obtaining)] Blood Pressure [Standing (for 1 minute prior to obtaining)] Blood Pressure Mean 91 68 77 Blood Pressure Mean [Lying] Blood Pressure Mean [Sitting (for 1 minute prior to obtaining)] Blood Pressure Mean [Standing (for 1 minute prior to obtaining)] Pulse Ox 98 97 97 Oxygen Delivery Method Room Air Positive well nourished and well developed General Appearance ED: well developed and NAD HEENT Reports moist mucous membranes Neck supple and no JVD Resp normal respiratory effort and clear to auscultation bilaterally Cardio regular rhythm Rate: bradycardia GI non-tender and non-distended Palpation: soft Extremity normal to inspection General Extremety ED: Negative for edema or tenderness General Extremity: Negative for edema Neuro oriented x3, CN's II-XII intact bilaterally and no sensory deficits noted Sensorium / Orientation: alert Motor Exam: strength 5/5 throughout Psych mental status grossly normal MDM MDM MDM Narrative Medical decision making narrative: Differential diagnosis includes but is not limited to cardiac dysrhythmia, cardiac ischemia, pneumonia, bronchitis, electrolyte abnormality, dehydration, orthostatic hypotension, and urinary tract infection. EKG will be obtained to assess for cardiac dysrhythmia and cardiac ischemia. Chest x-ray will be obtained to assess for pneumonia or bronchitis. CT scan of the brain will be obtained to assess for intracranial bleeding and stroke. CBC will be obtained to assess for leukocytosis and anemia. Basic metabolic profile will be obtained to assess for electrolyte abnormality and renal function. High-sensitivity troponin will be obtained to assess for cardiac ischemia. 2-hour repeat high-sensitivity troponin will be obtained to assess for ongoing cardiac ischemia. Urinalysis will be obtained to assess for urinary tract infection and hematuria. Orthostatic vital signs will be obtained to assess for orthostatic hypotension and hypovolemia. History & Record Review Additional record(s) reviewed:: Prior outpatient record and Prior ED visit Lab Data Attestation: I reviewed the patient's lab results. Lab results narrative: CBC was reviewed and was normal limits. Basic metabolic profile was reviewed and was within normal limits. High-sensitivity troponin was reviewed and was normal at 11. Urinalysis was reviewed. There is no evidence of urinary tract infection or hematuria. COVID-19 PCR was reviewed and was negative. Influenza PCR was reviewed and was negative for influenza A and influenza B. RSV PCR was reviewed and was negative. 2-hour repeat high-sensitivity troponin was reviewed and was normal at 7. Labs: Laboratory Results - last 24 hr 11/16/24 11/16/24 11/16/24 11:53 14:06 14:25 WBC 6.7 RBC 4.17 L Hgb 12.1 Hct 38.3 MCV 91.8 MCH 29.0 MCHC 31.6 L RDW Std Deviation 51.7 H RDW Coeff of Pete 15.3 H Plt Count 177 MPV 9.3 Immature Gran % (Auto) 0.300 Neut % (Auto) 78.4 H Lymph % (Auto) 13.0 L [place] % (Auto) 7.0 Eos % (Auto) 0.9 Baso % (Auto) 0.4 Absolute Neuts (auto) 5.3 Absolute Lymphs (auto) 0.87 Nucleated RBC % 0 Sodium Cancelled 139 Potassium Cancelled 3.7 Chloride Cancelled 103 Carbon Dioxide Cancelled 24.9 Anion Gap Cancelled 11 BUN Cancelled 14 Creatinine Cancelled 0.87 Estim Creat Clear Calc Cancelled Est GFR (MDRD) Non-Af Cancelled 75 BUN/Creatinine Ratio Cancelled 15.8 Glucose Cancelled 110 H Calcium Cancelled 9.7 Troponin T High Sens Cancelled 11 Troponin T Hi Sens 2 Hr Urine Color Yellow Urine Clarity Clear Urine pH 6.5 Ur Specific [place] 1.010 Urine Protein 15 H Urine Glucose (UA) Normal Urine Ketones Negative Urine Occult Blood Negative Urine Nitrite Negative Urine Bilirubin Negative Urine Urobilinogen Normal Ur Leukocyte Esterase Negative Urine RBC 0-5 SEEN Urine WBC 0-5 SEEN Ur Squamous Epith Cells 0-5 SEEN Urine Bacteria 0 SEEN Urine Mucus 0 SEEN 11/16/24 16:12 WBC RBC Hgb Hct MCV MCH MCHC RDW Std Deviation RDW Coeff of Pete Plt Count MPV Immature Gran % (Auto) Neut % (Auto) Lymph % (Auto) [place] % (Auto) Eos % (Auto) Baso % (Auto) Absolute Neuts (auto) Absolute Lymphs (auto) Nucleated RBC % Sodium Potassium Chloride Carbon Dioxide Anion Gap BUN Creatinine Estim Creat Clear Calc Est GFR (MDRD) Non-Af BUN/Creatinine Ratio Glucose Calcium Troponin T High Sens Troponin T Hi Sens 2 Hr 7 Urine Color Urine Clarity Urine pH Ur Specific [place] Urine Protein Urine Glucose (UA) Urine Ketones Urine Occult Blood Urine Nitrite Urine Bilirubin Urine Urobilinogen Ur Leukocyte Esterase Urine RBC Urine WBC Ur Squamous Epith Cells Urine Bacteria Urine Mucus Radiography Chest X-Ray - ED: 1 View, Read by ED Physician, Read by Radiologist and No Acute Disease Diagnostic Testing: Clinical Impression(s) from Imaging Studies Brain CT 11/16/24 12:35 IMPRESSION: NO SIGNIFICANT CHANGE SINCE THE PRIOR EXAM Reading Location: [facility] Chest X-Ray 11/16/24 13:08 IMPRESSION: Lungs appear clear of acute disease. No pleural effusion or pneumothorax is noted. The cardiomediastinal silhouette is stable, without evidence of cardiomegaly. Prominent bilateral acromioclavicular joint degenerative changes are seen. At least mild thoracic spine degenerative changes are noted, along with gentle lower thoracic dextroscoliosis. No acute osseous process is seen. No evidence of acute cardiopulmonary disease. Reading Location: [place] [address] CT scan of the brain was obtained. There is no acute intracranial abnormality. This was interpreted by the radiologist and was also independently reviewed by myself. Portable 1 view chest x-ray was obtained. On my independent interpretation, lung sanderson are clear. There is normal cardiac silhouette. Bony thorax shows some mild degenerative changes of the thoracic spine and bilateral acromioclavicular joints. There is no acute process noted. Radiologist also interpreted the x-ray and agrees. EKG Initial EKG: Attestation: I personally reviewed and interpreted this EKG as follows: Interpretation: Sinus Bradycardia (56) and Non-Specific ST Changes Comments: EKG was obtained. On my independent interpretation, it showed a sinus bradycardia with a rate of 56. FL interval, QRS interval, and QTc intervals were all normal. [place] was normal. There are nonspecific ST-T wave changes. Prior EKG tracings: available for review Prior: Unchanged (04/26/2024) Treatment and Re-Evaluation :: Patient was advised of her findings. Patient is low risk for acute event based on [place] and [place] syncope rules. Patient was instructed to get plenty of rest. Patient was instructed to follow-up with her primary care physician in 5 to 7 days. Patient understood and was agreeable with the plan. All questions were answered. Discharge Plan Triage Chief Complaint: Syncope ED Provider: Bryant Patel Dx/Rx/DC Orders Clinical Impression: Syncope and collapse, HTN (hypertension) Instructions: ED Fainting, Uncertain Cause Prescriptions: No Action alendronate 70 mg tablet 70 mg PO QWEEK potassium chloride 10 mEq tablet extended release PO spironolactone 25 mg tablet PO pilocarpine HCl 5 mg tablet PO trazodone 50 mg tablet PO Systane Balance 0.6 % drops 1 drp ophthalmic (eye) DAILY PRN fluticasone propionate [Flonase Allergy Relief] 50 mcg/actuation spray,suspension 1 spray intranasal DAILY Rx Instructions: administer into each nostril Anoro Ellipta 62.5-25 mcg/actuation blister with device inhalation adapalene [Differin] 0.1 % cream 1 applic topical QHS prednisone 5 mg Tablet 5 mg PO 0900 clopidogrel [Plavix] 75 mg Tablet 75 mg PO 0900 famotidine [Pepcid] 20 mg Tablet 20 mg PO 0900 amlodipine 10 mg Tablet 10 mg PO 0900 ezetimibe [Zetia] 10 mg Tablet 10 mg PO 0900 mycophenolate mofetil [CellCept] 250 mg Capsule 500 mg PO 0900,2100 omeprazole 40 mg Capsule,Delayed Release(Dr/Ec) 80 mg PO 0900 cyclosporine 25 mg Capsule 75 mg PO 0900,2100 levothyroxine 88 mcg Tablet 88 mcg PO 0700 montelukast [Singulair] 10 mg Tablet 10 mg PO 2100 albuterol sulfate [Proventil HFA] 90 mcg/actuation Hfa Aerosol Inhaler 2 puff INHALATION Q4H PRN (Reason: Shortness Of Breath) fenofibrate nanocrystallized [Tricor] 48 mg Tablet 48 mg PO 0900 aspirin 81 mg tablet,chewable 81 mg PO DAILY Qty: 30 0RF acetaminophen [Arthritis Pain Reliever] 650 mg tablet extended release 1,300 mg PO Q8H PRN (Reason: PAAIN) carvedilol 12.5 mg tablet 12.5 mg PO BID clonazepam 0.5 mg tablet 0.25 mg PO DAILY PRN PRN (Reason: Anxiety) isosorbide mononitrate 60 mg tablet extended release 24 hr 60 mg PO DAILY hydrocodone-acetaminophen 5-325 mg tablet 1 tab PO Q4H PRN PRN (Reason: Pain) 3 Days Qty: 10 0RF doxycycline monohydrate 100 mg capsule 100 mg PO BID Qty: 14 0RF Primary Care Provider: Hiram Frias Referrals: Hiram Frias MD [Primary Care Provider] - 5-7 Days Print Language: Hebrew Disposition Disposition: Home, Self Care Discharge Date/Time: 11/16/24 16:56
--- NOTE | 2024-11-16 12:05 | EKG12_ITS ---
Test Reason : SYNCOPE Blood Pressure : */* mmHG Vent. Rate : 56 BPM Atrial Rate : 56 BPM P-R Int : 178 ms QRS Dur : 90 ms QT Int : 414 ms P-R-T Axes : 66 17 11 degrees QTcB Int : 399 ms Sinus bradycardia T wave abnormality, consider inferior ischemia Abnormal ECG Confirmed by Sharan Long ([id number]), marketing editor JOSE ROBERTO ESPINOZA ([id number]) on 11/18/2024 9:59:29 AM Referred By: Confirmed By: Sharan Long
[2024-11-16 12:24] LABS: Absolute Lymphocyte Count 0.87 X10^3/uL (0.83-4.51); Absolute Neutrophil Count 5.3 X10^3/uL (2.0-7.7); Basophil# 0.03 X10^3/uL; Basophil% 0.4 % (0-1); Eosinophil# 0.06 X10^3/uL; Eosinophils% 0.9 % (0-5); Hematocrit 38.3 % (37-47); Hemoglobin 12.1 g/dL (12.0-15.0); Lymphocyte # 0.87 X10^3/ul (0.83-4.51); Mean Corp Hgb Conc 31.6 g/dL (32-36); Mean Corpuscular Volume 91.8 fL (81-99); Mean Platelet Vol. 9.3 fl (6.2-12.0); Monocyte# 0.47 X10^3/uL; NRBC Flagged by Analyzer 0 % (0-5); Neutrophil # 5.25 X10^3/uL (2.7-7.7); Neutrophil % 78.4 % (47-70); Platelet Count 177 K/mm3 (150-450); RBC Distribution Width CV 15.3 % (11.6-14.6); RBC Distribution Width SD 51.7 fl (35.1-43.9); Red Blood Count 4.17 M/mm3 (4.2-5.4); White Blood Count 6.7 K/mm3 (4.4-11.0)
--- NOTE | 2024-11-16 12:35 | CT_ITS ---
PROCEDURE: BRAIN/HEAD WITHOUT CONTRAST 11/16/2024 REASON FOR EXAM: SYNCOPE TECHNIQUE: Head CT without intravenous contrast. Coronal and Sagittal reconstruction series were provided. One or more dose reduction techniques were used (e.g., Automated exposure control, adjustment of the mA and/or kV according to patient size, use of iterative reconstruction technique. RADIATION DOSE SUMMARY: CTDlvol: 47.06 mGy DLP: 943.26 mGycm COMPARISON: Comparison is made with prior study dated March 21, 2024. FINDINGS: Brain: Within normal limits for age CSF Spaces: Mild generalized cerebral atrophy Sinuses/Mastoids: Clear at visualized levels Bones: CT/Brain/Head without Contrast IMPRESSION: NO SIGNIFICANT CHANGE SINCE THE PRIOR EXAM Reading Location: [id number]
[2024-11-16 13:02] VITALS: BP 115/56; BP 126/63; BP 93/75; PULSE 55; PULSE 57; PULSE 60
--- NOTE | 2024-11-16 13:08 | RAD_ITS ---
PROCEDURE: CHEST 1 VIEW (PORTABLE) 11/16/2024 REASON FOR EXAM: SYNCOPE TECHNIQUE: Frontal view of the chest. COMPARISON: Chest x-ray of 03/21/2024. RAD/Chest 1 View (Portable) IMPRESSION: Lungs appear clear of acute disease. No pleural effusion or pneumothorax is noted. The cardiomediastinal silhouette is stable, without evidence of cardiomegaly. Prominent bilateral acromioclavicular joint degenerative changes are seen. At least mild thoracic spine degenerative changes are noted, along with gentle lower thoracic dextroscoliosis. No acute osseous process is seen. No evidence of acute cardiopulmonary disease. Reading Location: [place] [id number]
[2024-11-16 13:29] VITALS: BP 112/81; PULSE 60; RESP 16; O2SAT 98
[2024-11-16 14:33] LABS: Bacteria 0 SEEN /hpf (None Seen); Mucous, Urine 0 SEEN /hpf (<or=2+)
[2024-11-16 14:45] LABS: Anion Gap 11 (5-15); BUN 14 mg/dL (4-19); BUN/Creat Ratio 15.8 RATIO (10-20); Calcium,Total 9.7 mg/dL (7.6-11.0); Carbon Dioxide 24.9 mmol/L (21.0-32.0); Chloride 103 mmol/L (98-108); Creatinine, Serum 0.87 mg/dL (0.70-1.20); EST Glomerular Filtration Rate 75 (>60); Glucose 110 mg/dL (70-99); Potassium 3.7 mmol/L (3.3-5.1); Sodium Level 139 mmol/L (133-145); Troponin T High Sensitivity 11 ng/L (<=14)
[2024-11-16 14:48] LABS: Color, Urine Yellow (Yellow); Glucose, Dipstick Normal (Normal); Ketone-Dipstick Negative (Negative); Leukocyte Esterase-Dipstick Negative /ul (Negative); Nitrite-Dipstick Negative (Negative); Occult Blood-Urine Negative /ul (Negative); Protein-Dipstick 15 mg/dl (Negative); Urine Bilirubin Dipstick Negative (Negative); Urine Clarity Clear (Clear); Urine Urobilinogen Normal (Normal); Urine pH 6.5 (5.0 - 8.0)
[2024-11-16 15:15] VITALS: BP 99/53; PULSE 60; RESP 16; O2SAT 97
[2024-11-16 15:18] LABS: Red Blood Cells-Urine 0-5 SEEN /hpf (0-5); Squamous Epithelial Cells - UA 0-5 SEEN /hpf (5-10); White Blood Cells 0-5 SEEN /hpf (0-5)
[2024-11-16 16:34] LABS: Troponin T High Sens 2 HR 7 ng/L (<=14)
[2024-11-16 16:53] VITALS: BP 125/54; PULSE 60; RESP 16; TEMP 36.8; O2SAT 97
== END 2024-11-16 16:56 | disposition home or self-care (01) ==
PROVIDERS: Emergency Provider Emergency Medicine; PCP Family Medicine; Visit Provider Emergency Medicine
DX: R55 Syncope and collapse (principal); J44.9 Chronic obstructive pulmonary disease, unspecified; E78.00 Pure hypercholesterolemia, unspecified; I10 Essential (primary) hypertension; Z92.21 Personal history of antineoplastic chemotherapy; Z85.89 Personal history of malignant neoplasm of other organs and systems; Z79.899 Other long term (current) drug therapy; Z79.02 Long term (current) use of antithrombotics/antiplatelets; K21.9 Gastro-esophageal reflux disease without esophagitis; Z79.82 Long term (current) use of aspirin; F41.9 Anxiety disorder, unspecified; Z79.51 Long term (current) use of inhaled steroids; E03.9 Hypothyroidism, unspecified; Z79.890 Hormone replacement therapy; F17.290 Nicotine dependence, other tobacco product, uncomplicated; Z94.0 Kidney transplant status; Z98.51 Tubal ligation status
CPT/HCPCS: 70450; 71045; 80048; 81001; 84484; 85025; 87631; 93005; 99285; A4216

== ENCOUNTER 2025-03-08 11:30 | Outpatient (RCR) | payer MEDICARE, MEDICAID, SELFPAY ==
--- NOTE | 2024-10-01 15:40 | HP.SP.EVAL ---
Visit History Visit Info Date of Eval: 09/30/24 Visit: 1 President Financial Institution: [employer] History Attending Doctor: DEION BOUDREAUX Referring Doctor: DEION BOUDREAUX Reason for Referral: PHARYNGEAL DYSPHAGIA/RX SCANNED Medical Diagnosis: Pharyngeal dysphagia R13.13 Date of Onset of Diagnosis: 09/23/2024 Previous speech therapy: Yes Results: (From [facility] documentation faxed to RESERVE OFFICER) MBSS 09/15/2023: Impressions: Moderate oral phase and moderate/marked pharyngeal phase dysphagia. There is some functional improvement compared to 09/09 MBS study. Aspiration was identified during and after thin liquid swallows and when taking thin liquid to assist with moistening and clearing the dry cookie from the oral cavity. Patient reported she has had to eat this was for many years (likely following chemo-rad. to neck in 2005)...Prognosis: Good for a modified oral diet. Thickened liquids will be recommended during meals (when eating) with water sips throughout the day with use of safe swallowing strategies...Recommendations: 1. Puree diet / Mildly thick liquids. Add moisture to meal trays and avoid dry foods...2. May have sips of unthickened water between meals with use of precautions. All liquid during meals should be thickened. 3. Swallowing Precautions/Strategies: Supervision/assistance with first few meals, sit upright, feed slowly - one sip at a time, chin tuck posture after taking liquid/food into the mouth, swallow hard, swallow, lightly clear throat and re-swallow, alternate food and liquid during meals. 4. Swallowing therapy as OP at [facility]. Other Relevant Medical History/Diagnoses/Surgery: PMH: COPD, hepatitis C, hx of kidney transplant. Hx of tonsil cancer s/p [employer] 2003 who recently presented to ENT for R sided neck lump. Baseline swallowing difficulty. Recent RSV and PNA. Intermittent tobacco use (hasn't smoked in 2-3 months). 20lb weight loss in past 12 months. 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 Imaging revealed no soft tissue mass, but rather an ectatic carotid artery. She was been referred to a vascular surgeon. Recent videostroboscopy 09/23/2024 w/ ENT, Carin Yen, revealing evidence of radiation changes, slight R vocal fold hypomobility but approximates to midline well, true vocal fold mucosa demonstrating mild post radiation changes. Patient was recommended by ENT for swallowing and voice evaluation to address dysphagia s/p previous HN radiation. The ENT felt the patient's dysphagia was exacerbated by recent CEA. Per pt, she did follow up with the vascular surgeon, who felt this carotid is more pronounced due to recent weight loss. Smoking Status: Current some day smoker Pain Is pain an issue with your current prescribed condition?: No Personal Preferred language: Kiswahili Patient Allergies Allergies Allergies: Allergies cyclobenzaprine (From Flexeril) Allergy (Verified 05/28/24 08:21) Rash Opioids - Morphine Analogues Allergy (Verified 05/28/24 08:21) Rash grapefruit Adverse Reaction (Verified 05/28/24 08:21) Other interfers with antirejection meds passion fruit Adverse Reaction (Verified 05/28/24 08:21) Other interfers with antirejection meds quetiapine (From Seroquel) Adverse Reaction (Verified 05/28/24 08:21) Other tardive dyskinesia Subjective Dysphagia Symptoms Reported Symptoms/Problems with: Coughing, Difficulty Swallowing Solids, Difficulty Swallowing Liquids, Food gets stuck, Weight Loss, Xerostomia, Hx of Aspiration and Hx of Pneumonia Current Diet Solids Current Diet: Pureed Current Diet Liquids Current Liquids: Thin Comments Patient report: -: moderate-severe hypogeusia moderate-severe xerostomia when managed by medication, severe xerostomia off medication spicy foods are irritating not utilizing thickener because she cannot afford it dislikes straws due to anterior loss on R side Objective Dysphagia Thin Liquids Administred via: Cup Oral Transit: Delay > 1 seconds Bolus clearance: fully cleared Comments: intermittent cough/throat clearing, RESERVE OFFICER provided verbal instruction and encouragement in use of hard swallows, swallow-lightly throat [id number], and slow rate as recommended by recent FEES. Pureed Administered via: Spoon Comments: intermittent cough/throat clearing, independent use of liquid wash Swallowing Impairment Other: Poor pharyngeal motility and decreased airway closure per recent MBSS Impact Impact on Safety & Functioning: Risk for Aspiration and Risk for Inadequate Nutrition/Hydration Recommendations Swallowing Treatment: Yes Diet Texture Recommendations Solids: Pureed (Level 4) Liquids: Thin (Level 0) Holm free water Protocol: Yes Other: Per recent MBSS: Sit upright, feed slowly - one sip at a time, chin tuck posture after taking liquid/food into the mouth, swallow hard, swallow, lightly clear throat and re-swallow, alternate food and liquid during meals. Due to the patient being unable to afford thickener, RESERVE OFFICER is recommending she concentrate on use of strict aspiration precautions when drinking water with foods or other drinks, or when consuming drinks that are not water by themselves. However, the patient is concerned for hydration issues w/ such strict precautions given hx of kidney transplant. RESERVE OFFICER is recommending FFWP between meals to encourage hydration by allowing the patient to drink more freely. RESERVE OFFICER provided handout and patient verbalized she is very diligent about her oral care. Results Swallowing Within Normal Limits: Yes Swallowing Diagnosis: Oropharyngeal Phase Dysphagia (R13.12) Additional: Moderate-severe [employer] TE[employer] V Trigeminal Nerve V Trigeminal Nerve Response: Intact VII Facial Nerve VII Facial Nerve Result: Impaired Comment: Moderate-severe hypogeusia X Vagus Nerve X Vagus Nerve Result: Impaired Comment:: Hoarseness s/p BL carotid endarterectomy resulting in unilateral vocal fold paralysis (R sided) per pt report XII Hypoglossal Nerve XII Hypoglossal Nerve Result: Impaired Comment:: Deviation R, mild lingual weakness w/ protrusion and pushing R, moderate weakness pushing L Reference: Neuro-QoL instrument Radiation Oncology Patient FOIS Functional Oral Intake Scale Total oral diet of a single consistency: Level 4 Other Other EAT-10: -: Eating Assessment Tool (EAT-10) ? Score = 35 Score of 3 or more indicates there may be a swallowing problem or dysphagia. For patients with head and neck cancer, researchers found a cut-off value of 19 to be helpful in detecting presence of post-swallow pharyngeal residue. Plan Recommendations Treatment Warranted: Yes Treatment Warranted: Dysphagia Comment: Voice evaluation ordered and planned for next visit. Pt is requesting speech production evaluation due to concerns for slurring of speech and deficits in speech clarity. Progress Prognosis: Fair Frequency Frequency: 1x/Week Duration: 4-6 Months Patient/Family Goal Patient/Family Goal: Talk more clearly, RESERVE OFFICER to request orders for speech production evaluation from ordering physician Goals that are Established Determination:: Goals will be added/modified as deemed necessary and appropriate. Therapy will be discontinued when results of re-evaluation indicate therapy is no longer needed or lack of progress has been documented. Goal #1-5 Goal #1: The patient will consume least restrictive diet textures without overt s/s of aspiration with minimal verbal cues for use of compensatory strategies to decrease risk for aspiration. Goal #2: The patient will complete an oropharyngeal exercise program X10-15 reps, 3-5X daily with minimal verbal cues to improve strength, ROM, and coordination of swallowing mechanism. Goal #3: The patient will demonstrate use or verbalize awareness of compensatory strategies consuming food/drink with 90% acc with minimal verbal cues to decrease risk for aspiration. Goal #4: Voice evaluation in upcoming session to set additional goals to POC as needed. Goal #5: Speech production evaluation (pending this RESERVE OFFICER receives order from physician) in upcoming session to set additional goals to POC as needed. Education Patient has Indicated that the Following The Patient has indicated that they have no educational or learning abilities that may effect their care.: Yes Patient Instruction Patient Education: Diagnosis, Treatment Plan, Goals, Safety Precautions, Diet Level and Home Exercise Program Other Education: RESERVE OFFICER trained the patient in the following: Effortful swallows, Nuria (additional exercises to be provided in upcoming sessions). 3 Pillars of Aspiration PNA. Holm Free Water Protocol. Person Taught: Patient Teaching Method: Discussion, Demonstration, Handout and Teach Back Response to teaching: Return Demonstration, Verbalize Understanding, Reinforcement Needed and Has Prior Knowledge
--- NOTE | 2024-10-27 14:40 | HP.SP.EVAL ---
Visit History Visit Info Date of Eval: 10/27/24 Visit: 1 Bottom Turning Lathe Tender: LASHAY History Attending Doctor: DEION BOUDREAUX Referring Doctor: DEION BOUDREAUX Reason for Referral: PHARYNGEAL DYSPHAGIA/RX SCANNED Medical Diagnosis: Pharyngeal dysphagia R13.13 Date of Onset of Diagnosis: 09/23/2024 Previous speech therapy: Yes Results: (From [facility] documentation faxed to MENTAL HEALTH PROGRAM SPECIALIST) MBSS 09/15/2023: Impressions: Moderate oral phase and moderate/marked pharyngeal phase dysphagia. There is some functional improvement compared to 09/09 MBS study. Aspiration was identified during and after thin liquid swallows and when taking thin liquid to assist with moistening and clearing the dry cookie from the oral cavity. Patient reported she has had to eat this was for many years (likely following chemo-rad. to neck in 2005)...Prognosis: Good for a modified oral diet. Thickened liquids will be recommended during meals (when eating) with water sips throughout the day with use of safe swallowing strategies...Recommendations: 1. Puree diet / Mildly thick liquids. Add moisture to meal trays and avoid dry foods...2. May have sips of unthickened water between meals with use of precautions. All liquid during meals should be thickened. 3. Swallowing Precautions/Strategies: Supervision/assistance with first few meals, sit upright, feed slowly - one sip at a time, chin tuck posture after taking liquid/food into the mouth, swallow hard, swallow, lightly clear throat and re-swallow, alternate food and liquid during meals. 4. Swallowing therapy as OP at [facility]. Other Relevant Medical History/Diagnoses/Surgery: PMH: COPD, hepatitis C, hx of kidney transplant. 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 Baseline swallowing difficulty. Recent RSV and PNA. Intermittent tobacco use (hasn't smoked in 2-3 months). 20lb weight loss in past 12 months. 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 Imaging revealed no soft tissue mass, but rather an ectatic carotid artery. She was been referred to a vascular surgeon. Recent videostroboscopy 09/23/2024 w/ ENT, Carin Yen, revealing evidence of radiation changes, slight R vocal fold hypomobility but approximates to midline well, true vocal fold mucosa demonstrating mild post radiation changes. Patient was recommended by ENT for swallowing and voice evaluation to address dysphagia s/p previous HN radiation. The ENT felt the patient's dysphagia was exacerbated by recent CEA. Per pt, she did follow up with the vascular surgeon, who felt the patient?s carotid is more pronounced due to recent weight loss. BSE completed w/ this MENTAL HEALTH PROGRAM SPECIALIST 10/01/2024 revealed moderate-severe oropharyngeal dysphagia and recommended pureed textures / thin liquids with strict aspiration precautions and FFWP between meals to encourage hydration (See BSE for full details re: rationale for thin liquids due to financial concerns w/ chronic use of thickener). Of note, the patient received oropharyngeal exercises during the BSE, which she has been completing 7-10X daily. She feels she can now eat some chopped, tender solids w/ frequent liquid wash. MENTAL HEALTH PROGRAM SPECIALIST is recommending follow up dysphagia treatment. The patient now returns to OP ST for voice evaluation. Smoking Status: Current some day smoker Pain Is pain an issue with your current prescribed condition?: No Personal Preferred language: Armenian Patient Allergies Allergies Allergies: Allergies cyclobenzaprine (From Flexeril) Allergy (Verified 05/28/24 08:21) Rash Opioids - Morphine Analogues Allergy (Verified 05/28/24 08:21) Rash grapefruit Adverse Reaction (Verified 05/28/24 08:21) Other interfers with antirejection meds passion fruit Adverse Reaction (Verified 05/28/24 08:21) Other interfers with antirejection meds quetiapine (From Seroquel) Adverse Reaction (Verified 05/28/24 08:21) Other tardive dyskinesia Subjective Voice Alcoholic Beverage Intake Intake: Never Objective Voice Observational Assessment Maximum Phonation Time in seconds: 11.33 - Sustained ah Sustained /s/: 17.71 Sustained /z/: 11.25 Ratio: 1.57 Greater than 1:4 (indicates dysfunction): Yes Voice Handicap Index (VHI) VHI VHI Administered: Yes VHI: Patient completed the Voice Handicap Index, which is a 30 item, self administered questionnaire that asks an individual to describe their voice and the effects of their voice on their life. Three subscales cover the areas of functional, emotional, and physical aspects of the voice disorders. Points from the questions can be combined to assign a total score, or they can be combined by subscale. Results for the VHI are as follows: Date: 10/27/24 VHI Test Functional: 28 Physical: 29 Emotional: 33 Total Severity Rating: Severe (61-120) Comments Comments: -: The patient's voice problems greatly impact her social-emotional well-being. She reports avoiding social situations and feeling embarrassment about her voice issues. She feels it causes her to be more withdrawn, especially when others around her don't understand her voice problem. CAPE-V CAPE-V CAPE-V Administered: Yes CAPE: The Consensus Auditory-Perceptual Evaluation of Voice (CAPE-V) was developed as a tool for clinical auditory-perceptual assessment of voice. Its primary purpose is to describe the subjective severity of auditory-perceptual attributes of a voice problem, in a way that can be communicated among clinicians. Its secondary purpose is to contribute to hypotheses regarding the anatomic and physiological bases of voice problems and to evaluate the need for additional testing. In terms of severity, Pt is considered MILD between 0-40, MODERATE 40-75, and SEVERE >75. Date: 10/27/24 Overall Severity Overall Severity (n/100): 32 Frequency: Consistent Roughness Roughness (n/100): 39 Frequency: Consistent Breathiness Breathiness (n/100): 10 Frequency: Intermittent Strain Strain (n/100): 21 Frequency: Intermittent Pitch Pitch (n/100): 23 Frequency: Intermittent Loudness Loudness (n/100): 15 Frequency: Intermittent Comments Severity rating: -: Mildly-moderately deviant vocal quality Reference: Neuro-QoL instrument Radiation Oncology Patient Other Other Reflux Symptom Index: -: RSI score of 31. Score of >10 could indicate significant laryngopharyngeal reflux. Plan Plan Plan: In addition to dysphagia POC recommended from Bedside Swallowing Evaluation 10/01/2024, the patient is recommended for voice therapy to address dysphonia secondary to R vocal fold paresis s/p CEA. In addition, patient has hx of radiation for HNC and GERD that likely contribute to dysphonia. POC to include training in Vanna's vocal function exercises, reflux and vocal hygiene education, and techniques to promote improved breath support, laryngeal relaxation, and resonance. Without skilled ST services, the patient is at risk for worsening hoarseness and continued social-emotional difficulties secondary to her vocal dysfunction. Recommendations Treatment Warranted: Yes Treatment Warranted: Dysphagia and Voice Comment: Voice POC recommended in addition to dysphagia POC initiated during Bedside Swallow Evaluation 10/01/2024. Goals for both POC below. Progress Prognosis: Good Frequency Frequency: 1x/Week Duration: 4-6 Months Patient/Family Goal Patient/Family Goal: Talk more clearly, MENTAL HEALTH PROGRAM SPECIALIST to request orders for speech production evaluation from ordering physician Goals that are Established Determination:: Goals will be added/modified as deemed necessary and appropriate. Therapy will be discontinued when results of re-evaluation indicate therapy is no longer needed or lack of progress has been documented. Goal #1-5 Goal #1: (LTG 1.0) The patient will consume least restrictive diet textures without overt s/s of aspiration with minimal verbal cues for use of compensatory strategies to decrease risk for aspiration. Goal #2: (STG 1.1) The patient will complete an oropharyngeal exercise program X10-15 reps, 3-5X daily with minimal verbal cues to improve strength, ROM, and coordination of swallowing mechanism. Goal #3: (STG 1.2) The patient will demonstrate use or verbalize awareness of compensatory strategies consuming food/drink with 90% acc with minimal verbal cues to decrease risk for aspiration. Goal #4: (LTG 2.0) The patient will converse in simple conversation (3-5min conversational samples) with minimal to mild hoarseness given minimal verbal cues to utilize strategies to improve resonance, phonation, and breath support. Goal #5: (STG 2.1) The patient will complete Stemple?s vocal function exercises 2X daily w/ sustained phonation of 15-20 seconds for each vocal task w/ minimal verbal cues to improve breath support, resonance, and vocal quality. Goal #6-10 Goal #6: (STG 2.2) The patient will verbalize awareness of and demonstrate use of strategies and exercises to improve resonance and breath support independently to improve overall vocal quality. Goal #7: (STG 2.3) The patient will verbalize understanding of education provided re: vocal hygiene and reflux management strategies to decrease hoarseness. Goal #8: Speech production evaluation (pending this MENTAL HEALTH PROGRAM SPECIALIST receives order from physician) in upcoming session to set additional goals to POC as needed. Education Patient has Indicated that the Following The Patient has indicated that they have no educational or learning abilities that may effect their care.: Yes Patient Instruction Patient Education: Diagnosis, Treatment Plan and Goals Other Education: Provided handouts and brief verbal education re: vocal hygiene strategies and reflux management. Person Taught: Patient Teaching Method: Discussion and Handout Response to teaching: Verbalize Understanding and Reinforcement Needed
--- NOTE | 2024-12-14 14:43 | HP.SP.EVAL ---
Visit History Visit Info Date of Eval: 12/14/24 Today is Visit #: 4 Patient's Approved Number of Visits: 24 Priming Machine Operator: LASHAY History Attending Doctor: DEION BOUDREAUX Referring Doctor: Dr. Hiram Frias Reason for Referral: PHARYNGEAL DYSPHAGIA/RX SCANNED Medical Diagnosis: Dysarthria R47.0 Date of Onset of Diagnosis: 12/12/2024 Previous speech therapy: Yes Results: (From [facility] documentation faxed to [facility]) MBSS 09/15/2023: Impressions: Moderate oral phase and moderate/marked pharyngeal phase dysphagia. There is some functional improvement compared to 09/09 MBS study. Aspiration was identified during and after thin liquid swallows and when taking thin liquid to assist with moistening and clearing the dry cookie from the oral cavity. Patient reported she has had to eat this was for many years (likely following chemo-rad. to neck in 2005)...Prognosis: Good for a modified oral diet. Thickened liquids will be recommended during meals (when eating) with water sips throughout the day with use of safe swallowing strategies...Recommendations: 1. Puree diet / Mildly thick liquids. Add moisture to meal trays and avoid dry foods...2. May have sips of unthickened water between meals with use of precautions. All liquid during meals should be thickened. 3. Swallowing Precautions/Strategies: Supervision/assistance with first few meals, sit upright, feed slowly - one sip at a time, chin tuck posture after taking liquid/food into the mouth, swallow hard, swallow, lightly clear throat and re-swallow, alternate food and liquid during meals. 4. Swallowing therapy as OP at [facility]. Other Relevant Medical History/Diagnoses/Surgery: PMH: COPD, hepatitis C, hx of kidney transplant. Hx of tonsil cancer s/p [employer] 2003 who recently presented to ENT for R sided neck lump. Baseline swallowing difficulty. Recent RSV and PNA. Intermittent tobacco use (hasn't smoked in 2-3 months). 20lb weight loss in past 12 months. 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 Imaging revealed no soft tissue mass, but rather an ectatic carotid artery. She was been referred to a vascular surgeon. Recent videostroboscopy 09/23/2024 w/ ENT, Carin Yen, revealing evidence of radiation changes, slight R vocal fold hypomobility but approximates to midline well, true vocal fold mucosa demonstrating mild post radiation changes. Patient was recommended by ENT for swallowing and voice evaluation to address dysphagia s/p previous HN radiation. The ENT felt the patient's dysphagia was exacerbated by recent CEA. Per pt, she did follow up with the vascular surgeon, who felt the patient?s carotid is more pronounced due to recent weight loss. BSE completed w/ this [facility] 10/01/2024 revealed moderate-severe oropharyngeal dysphagia and recommended pureed textures / thin liquids with strict aspiration precautions and FFWP between meals to encourage hydration (See BSE for full details re: rationale for thin liquids due to financial concerns w/ chronic use of thickener). Voice evaluation followed BSE to initiate POC for hoarseness. This week, [facility] obtained orders from the patient's PCP, Dr. Frias, for assessment of speech production. Smoking Status: Current some day smoker Pain Is pain an issue with your current prescribed condition?: Yes Pain Throat Pain: Current Pain Intensity: 5 Comment: recent viral illness w/ sore throat, no other symptoms, doctor said to manage w/ gargle/rinses Personal Preferred language: [place] Patient Allergies Allergies Allergies: Allergies cyclobenzaprine (From Flexeril) Allergy (Verified 11/16/24 11:29) Rash Opioids - Morphine Analogues Allergy (Verified 11/16/24 11:29) Rash grapefruit Adverse Reaction (Verified 11/16/24 11:29) Other interfers with antirejection meds passion fruit Adverse Reaction (Verified 11/16/24 11:29) Other interfers with antirejection meds quetiapine (From Seroquel) Adverse Reaction (Verified 11/16/24 11:29) Other tardive dyskinesia Subjective Oral Motor Subjective Patient Reports: Slurred Speech and Difficulty being Understood Comments Comments: Hoarseness is worse this week from viral throat infection, pt seen by her physician and recommended to rest voice and rinse/gargle to manage throat pain. Objective Oral Motor Oral Status Additional: Upper and lower plates Labial Impairment: WNL Closure: WNL Pucker: WNL Retraction: WNL Alternating Pucker/Retraction: WNL Lingual Impairment: Moderate Observation: Deviated Right Protrusion: Mild Retraction: Moderate Lateralization: Moderate Lingual Comments Comments: Decreased lateralization and strength w/ lateralization, most notable w/ lingual resistance L. Mildly decreased lingual ROM R. Overall slowed lingual coordination. Jaw Impairment: WNL Opening: WNL Closing: WNL Opening Measurement: 43mm Respiratory Status Respiratory Status: Room Air Subjective Dysarthria/Motor Subjective Subjective: The patient reports hoarseness, swallowing, and imprecise articulation all onset suddenly following her carotid endarterectomy. Currently, hoarseness is exacerbated due to recent viral illness w/ sore throat, red throat, and no additional symptoms per patient report. She is aware that speaking slower, lower, and softer helps others to understand her better, but this can lead to people not being able to hear her as well. She admits to withdrawing from social situations due to difficulty w/ her speech and even feels that one of her family members (younger) is embarrassed of the way she speaks. Her speech and voice difficulties have had a negative social-emotional impact on her. Objective Dysarthira/Motor Speech Intelligibility Sentences: WFL Paragraphs: Mild Conversation: Mild Volume Volume: Mild Loudness: Grundy loudness Sounds Sounds in Error: [facility] had the patient read the grandfather passage. /k/, /g/, and /t/ have mild distortions and are not as precise as the other speech sounds, likely due to impaired lingual strength and ROM; however, speech was >90% intelligible. Pt is very intentional to use slow speech to more clearly annunciate her words. [facility] had the patient read various sentences targeting various articulation placements and manners. Only 1 error was observed at the sentence level, which was production of a single /t/. Diadochokinetic rates: Repeated ?puh? ? 4.3 syllables per second (WNL = 5.2-7.5). Repeated ?tuh? ? 2.3 syllables per second (WNL = 4.0-7.7). Repeated ?kuh? ? 3.0 syllables per second (WNL = 3.2-6.9) w/ mild distortion. Repeated ?puh-tuh-kuh? ? 3.2 syllables per second (WNL = 3.7-7.8). Once again, pt was able to demonstrate speech sounds of /p/ and /t/ w/ good clarity; however, she relied on slow rate to produce these speech sounds accurately. /k/ had mild distortion, which worsened as repetitions progressed. Observation Observation of Apraxia of Speech: No Oral Groping for Placement: No Inconsistent Errors: No Awareness/Strategy Use Uses strategies intermittently to improve intelligibility or listener's understanding of message: Yes Comments Summary: -: The patient presents w/ mild dysarthria characterized by slowed rate, imprecise articulation, decreased volume/breath support, and hoarse vocal quality (see recent voice evaluation for further details re: phonation difficulty). Goals added to POC to train pt in articulatory placement and precision of velar and alveolar sounds, as well as train the patient in oral agility and oral motor exercises to promote improved strength and coordination of her lingual musculature. [facility] strongly encouraged continued participation in social, family, and amish events. She confirmed that she is still working to attend these outings despite her voice difficulty. Although it is not feasible in her budget now, she anticipates being able to get a voice amplifier after her move is complete. [facility] strongly recommends voice amplifier once it is financially feasible as she is able to demonstrate achieving more clear and less hoarse speech/voice when speaking softer. Reference: Neuro-QoL instrument Radiation Oncology Patient Plan Plan Plan: Will recommend the patient for speech production treatment to address mild dysarthria during current outpatient speech therapy POC for dysphagia and voice. Goals below reviewed w/ the patient and patient agreeable to updated POC. Recommendations Treatment Warranted: Yes Treatment Warranted: Speech Sound Production, Dysphagia and Voice Comment: Goals for current dysphagia, voice, and now speech production therapy are all below. Progress Prognosis: Good Frequency Frequency: 1x/Week Duration: 4-6 Months Patient/Family Goal Patient/Family Goal: Speak more clearly to improve participation in social situations w/ friends and family. Goals that are Established Determination:: Goals will be added/modified as deemed necessary and appropriate. Therapy will be discontinued when results of re-evaluation indicate therapy is no longer needed or lack of progress has been documented. Goal #1-5 Goal #1: (LTG 1.0) The patient will consume least restrictive diet textures without overt s/s of aspiration with minimal verbal cues for use of compensatory strategies to decrease risk for aspiration. Goal #2: (STG 1.1) The patient will complete an oropharyngeal exercise program X10-15 reps, 3-5X daily with minimal verbal cues to improve strength, ROM, and coordination of swallowing mechanism. Goal #3: (STG 1.2) The patient will demonstrate use or verbalize awareness of compensatory strategies consuming food/drink with 90% acc with minimal verbal cues to decrease risk for aspiration. Goal #4: (LTG 2.0) The patient will converse in simple conversation (3-5min conversational samples) with minimal to mild hoarseness given minimal verbal cues to utilize strategies to improve resonance, phonation, and breath support. Goal #5: (STG 2.1) The patient will complete [place]emple?s vocal function exercises 2X daily w/ sustained phonation of 15-20 seconds for each vocal task w/ minimal verbal cues to improve breath support, resonance, and vocal quality. Goal #6-10 Goal #6: (STG 2.2) The patient will verbalize awareness of and demonstrate use of strategies and exercises to improve resonance and breath support independently to improve overall vocal quality. Goal #7: (STG 2.3) The patient will verbalize understanding of education provided re: vocal hygiene and reflux management strategies to decrease hoarseness. Goal #8: (LTG 3.0) The patient will demonstrate accurate articulation of velar and alveolar stops at the paragraph and short conversational levels w/ minimal verbal cues for placement and compensatory strategies to improve speech clarity. Goal #9: (STG 3.1) The patient will complete an oral motor exercise program with minimal verbal cues to improve lingual and strength, ROM, and coordination to promote improved speech clarity. Education Patient has Indicated that the Following The Patient has indicated that they have no educational or learning abilities that may effect their care.: Yes Patient Instruction Patient Education: Diagnosis, Treatment Plan and Goals Person Taught: Patient Teaching Method: Discussion Response to teaching: Return Demonstration, Verbalize Understanding, Reinforcement Needed and Has Prior Knowledge
--- NOTE | 2025-07-12 12:33 | HP.SP.DC ---
ST Discharge Summary Discharged: Discharge: The patient participated in 7 outpatient speech therapy sessions to address dysarthria, dysphagia, and dysphonia. The patient will be discharged from speech therapy at this time as she has returned for further visits. If persistent difficulties related to dysarthria, dysphagia, or dysphonia, please re-consult for evaluation and continued treatment.
== END 2025-03-08 19:00 | disposition home or self-care (01) ==
LOC: SP 11:30
PROVIDERS: PCP Family Medicine
DX: R13.13 Dysphagia, pharyngeal phase (principal); R49.9 Unspecified voice and resonance disorder
CPT/HCPCS: 92507; 92522; 92524; 92526; 92610